=== PATIENT | male | born 1995 | race Two or more races ===

== ENCOUNTER 2021-10-15 18:44 | Inpatient (IN) | payer OTHER, MEDICAID, SELFPAY ==
[2021-10-15 18:30] VITALS: BP 121/76; PULSE 98; TEMP 36.7
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
[2021-10-15] MEDS: Divalproex Sodium 500 MG TABLET.DR PO (23:13)
[2021-10-15] MEDS: hydrOXYzine HCL 25 MG TABLET PO (23:13)
[2021-10-15] MEDS: Benztropine Mesylate 0.5 MG TABLET PO (23:13)
[2021-10-15] MEDS: Ziprasidone 20 MG CAPSULE PO (23:13)
[2021-10-16 06:00] VITALS: BP 124/68; PULSE 93; RESP 18; TEMP 36.5; O2SAT 98
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
[2021-10-16] MEDS: Ziprasidone 20 MG CAPSULE PO ×2 (09:38→21:02)
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
[2021-10-16 18:00] VITALS: BP 117/85; PULSE 87
[2021-10-16] MEDS: Benztropine Mesylate 0.5 MG TABLET PO (21:02)
[2021-10-16] MEDS: Divalproex Sodium 500 MG TABLET.DR PO (21:02)
[2021-10-16] MEDS: hydrOXYzine HCL 25 MG TABLET PO (23:06)
[2021-10-16] MEDS: traZODone HCL 50 MG TABLET PO (23:06)
[2021-10-17 09:24] LABS: Estimated Average Glucose 100 mg/dL; Hemoglobin A1c % 5.1 %
[2021-10-17 09:30] LABS: Cholesterol 111 mg/dL; HDL Cholesterol 25 mg/dL; LDL Cholesterol Calculated 75 mg/dl; Triglycerides 58 mg/dL
[2021-10-17 09:34] LABS: Valproate 44.1 mcg/mL (50.0-100.0)
[2021-10-17] MEDS: Ziprasidone 20 MG CAPSULE PO (09:45)
[2021-10-17] MEDS: Paliperidone ER 3 MG TAB.ER.24 PO (09:45)
--- NOTE | 2021-10-17 19:26 | P.PNPSI_ITS ---
Subjective Subjective Date of Service: 10/17/21 Reason For Visit: Bipolar Disorder Subjective Notes: Conditional Voluntary Healthcare Proxy: No Guardianship: No Medical Problems Affecting Mental Status: No Interim History: Reports SI, anxiety, feeling overwhelmed with thoughts of the devil, Holocaust. Reivew of his decision to remain in [place] when parents moved to [place]. States his brother gave him difficulty about needing to live on his own and manage this illness on his own. He is re-thinking this decision. Discussed titration of medications. Medication Compliance: Yes Side effects from medications: No Attending Groups: Intermittent Review of Systems Acute medical concerns: No Review of Systems Psychiatric: Reports anxiety, Reports depression, Reports difficulty concentrating, Reports auditory hallucinations, Reports mood swings, Reports paranoia and Reports suicidal ideation Mental Status Exam Mental Status Exam Patient Appearance: Appropriate Patient Orientation: Person, Place, Time and Situation Level of Consciousness: Alert Patient Behavior: Talkative and Good Eye Contact Mood Description: Depressed and Anxious Affect Description: Constricted Patient Cognition Impaired: No Ability to Follow Directions: Good Speech Pattern: Spontaneous Speech Memory Description: Intact Hallucinations: Auditory Delusions: Paranoid Ideation Perceptual Disturbances: Depersonalization and Derealization Thought Process: Distracted and Rumination Thought Content: positive for Obsessional Thoughts, positive for Perseveration and positive for Suicidal Ideation Depressive Symptoms: Increased Anxiety, Feelings of Guilt and Thoughts of /Suicide Judgement: Fair Diagnostics Labs Labs: Laboratory Results - last 48 hr 10/17/21 10/17/21 10/17/21 08:08 08:08 08:08 Estimat Average Glucose 100 Hemoglobin A1c % 5.1 Triglycerides 58 Cholesterol 111 LDL Cholesterol, Calc 75 HDL Cholesterol 25 Valproic Acid 44.1 L Medications Medications Current Medications Acetaminophen (Acetaminophen 325 Mg Tablet) 650 mg PO Q6H PRN PRN Reason: Headache/Pain Mild Scale (1-3) Al Hydroxide/Mg Hydroxide (Magnesium Hydrox/Alum Hydrox 30 Ml Oral.Susp) 30 ml PO Q6H PRN PRN Reason: Heartburn/Nausea Albuterol Sulfate (Albuterol Sulfate (0.042%) 1.25 Mg/3 Ml Vial.Neb) 0.63 mg INHALE Q4H PRN PRN Reason: sob Benztropine Mesylate (Benztropine Mesylate 0.5 Mg Tablet) 0.5 mg PO BEDTIME [facility] Last Admin: 10/16/21 21:02 Dose: 0.5 mg Diphenhydramine HCl (Diphenhydramine Hcl 25 Mg Tablet) 50 mg PO Q4H PRN PRN Reason: agitation Divalproex Sodium (Divalproex Sodium Er 500 Mg Tab.Er.24h) 1,000 mg PO BEDTIME [facility] Hydroxyzine HCl (Hydroxyzine Hcl 25 Mg Tablet) 25 mg PO Q6H PRN PRN Reason: Anxiety Last Admin: 10/16/21 23:06 Dose: 25 mg Lorazepam (Lorazepam 1 Mg Tablet) 1 mg PO Q4H PRN PRN Reason: Anxiety Magnesium Hydroxide (Milk Of Magnesia 30 Ml Oral.Susp) 30 ml PO DAILY PRN PRN Reason: Constipation Nicotine Polacrilex (Nicotine Polacrilex 2 Mg Gum) 4 mg BUCCAL Q2H PRN PRN Reason: Nicotine Cravings Olanzapine (Olanzapine 5 Mg Tablet) 5 mg PO Q4H PRN PRN Reason: shawnee, agitation, psychosis Olanzapine (Olanzapine 5 Mg Tablet) 5 mg PO BEDTIME [facility] Paliperidone (Paliperidone Er 3 Mg Tab.Er.24) 3 mg PO DAILY [facility] Last Admin: 10/17/21 09:45 Dose: 3 mg Trazodone HCl (Trazodone Hcl 50 Mg Tablet) 50 mg PO BEDTIME PRN PRN Reason: Insomnia Last Admin: 10/16/21 23:06 Dose: 50 mg Allergies Allergies Allergy/AdvReac Type Severity Reaction Status Date / Time No Known Allergies Allergy Verified 10/15/21 19:21 Assessment & Plan Assessment & Plan (1) Bipolar disorder: Status: Acute Code(s): F31.9 - Bipolar disorder, unspecified Plan 26 yo male, hx of bipolar disorder, presents in transfer from [facility]. He had been in intake with [facility] where he expressed SI. Reports medications do not work and he is looking to make changes. Asks about an SLATER and community Lynne guardianship. Reports intrusive thoughts of the devil and believes he may have caused the Holocaust. Hx of violent intrusive visual sx which are bothersome however pt reports no plan and worries how he will manage these when manic again. Discussed Invega trial with Olanzapine available during trial. Pt agrees. Plan: Invega 3 mg daily Discontinue Geodon Olanzapine prn Valproate Level, Lipids, A1c Titrate Valproate to therapeutic levels. 10/17/21: Increase Depakote to 1000 mg daily Lorazepam 1 mg 1 4 hours prn Olanzapine 5 mg HS Continue Invega I spent minutes with the patient and/or on the patient floor today, greater than?50% of which was spent counseling/coordinating care. Patient educated on: medication risk/benefits and therapeutic strategies Informed Consent: understands and further education needed Reason for contiued inpatient stay Substantial Risk for: harm to self, inability to function and rapid decompensation
[2021-10-17 20:50] VITALS: BP 126/72; PULSE 93; TEMP 36.3
[2021-10-17] MEDS: OLANZapine 5 MG TABLET PO (22:07)
[2021-10-17] MEDS: Divalproex Sodium ER 500 MG TAB.ER.24H 1000 MG PO (22:08)
[2021-10-17] MEDS: Benztropine Mesylate 0.5 MG TABLET PO (22:08)
[2021-10-18] MEDS: traZODone HCL 50 MG TABLET PO (00:08)
[2021-10-18] MEDS: Paliperidone ER 3 MG TAB.ER.24 PO (09:59)
[2021-10-18] MEDS: LORazepam 1 MG TABLET PO (12:12)
[2021-10-18 17:22] VITALS: BP 116/69; PULSE 106; RESP 16; TEMP 37.2; O2SAT 99
--- NOTE | 2021-10-18 18:05 | HO.PSYCHPN ---
Subjective Subjective Date of Service: 10/18/21 Reason For Visit: Bipolar Disorder Subjective Notes: Conditional Voluntary Healthcare Proxy: No Guardianship: No Medical Problems Affecting Mental Status: No Interim History: Team describes pt at reporting irritability, depression, numbness. Pt reports anxiety, ruminative about needing to live on his own and manage symptoms of illness alone. Presents with a significant amount of self-criticism. Agrees to increase Invega to 6 mg on 10/19. Medication Compliance: Yes Side effects from medications: Yes (some intermittent sedation reported) Attending Groups: Intermittent Review of Systems Acute medical concerns: No Medical Review of Systems: unchanged Review of Systems Reports behavioral changes Psychiatric: Reports anxiety, Reports behavioral changes, Reports depression, Reports difficulty concentrating, Reports hopelessness, Reports irritability, Reports anhedonia, Reports paranoia and Reports hallucinations Mental Status Exam Mental Status Exam Patient Appearance: Appropriate Patient Orientation: Person, Place, Time and Situation Level of Consciousness: Alert Patient Behavior: Talkative, Cooperative and Good Eye Contact Mood Description: Depressed Affect Description: Flat Patient Cognition Impaired: No Ability to Follow Directions: Good Speech Pattern: Spontaneous Speech Memory Description: Intact Hallucinations: None Delusions: Paranoid Ideation and Present (pt believes he caused Holocaust and believes he is affiliated with the devil.) Perceptual Disturbances: Derealization Thought Process: Distracted and Rumination Thought Content: positive for Perseveration, positive for Preoccupation and positive for Suicidal Ideation Depressive Symptoms: Diff. Making Decisions, Increased Irritability, Thoughts of /Suicide and Difficulty Concentrating Abnormal Motor Activity Signs and Symptoms: Restlessness Judgement: Fair Diagnostics Vital Signs (24Hr): Vital Signs - 24 hr 10/17/21 20:50 10/18/21 17:22 Temperature 97.3 F 99 F Pulse Rate 93 106 H Respiratory Rate 16 Blood Pressure 126/72 116/69 Pulse Oximetry 99 Oxygen Delivery Method Room Air Labs Labs: Laboratory Results - last 48 hr 10/17/21 10/17/21 10/17/21 08:08 08:08 08:08 Estimat Average Glucose 100 Hemoglobin A1c % 5.1 Triglycerides 58 Cholesterol 111 LDL Cholesterol, Calc 75 HDL Cholesterol 25 Valproic Acid 44.1 L Medications Medications Current Medications Acetaminophen (Acetaminophen 325 Mg Tablet) 650 mg PO Q6H PRN PRN Reason: Headache/Pain Mild Scale (1-3) Al Hydroxide/Mg Hydroxide (Magnesium Hydrox/Alum Hydrox 30 Ml Oral.Susp) 30 ml PO Q6H PRN PRN Reason: Heartburn/Nausea Albuterol Sulfate (Albuterol Sulfate (0.042%) 1.25 Mg/3 Ml Vial.Neb) 0.63 mg INHALE Q4H PRN PRN Reason: sob Benztropine Mesylate (Benztropine Mesylate 0.5 Mg Tablet) 0.5 mg PO BEDTIME [facility] Last Admin: 10/17/21 22:08 Dose: 0.5 mg Diphenhydramine HCl (Diphenhydramine Hcl 25 Mg Tablet) 50 mg PO Q4H PRN PRN Reason: agitation Divalproex Sodium (Divalproex Sodium Er 500 Mg Tab.Er.24h) 1,000 mg PO BEDTIME [facility] Last Admin: 10/17/21 22:08 Dose: 1,000 mg Hydroxyzine HCl (Hydroxyzine Hcl 25 Mg Tablet) 25 mg PO Q6H PRN PRN Reason: Anxiety Last Admin: 10/16/21 23:06 Dose: 25 mg Lorazepam (Lorazepam 1 Mg Tablet) 1 mg PO Q4H PRN PRN Reason: Anxiety Last Admin: 10/18/21 12:12 Dose: 1 mg Magnesium Hydroxide (Milk Of Magnesia 30 Ml Oral.Susp) 30 ml PO DAILY PRN PRN Reason: Constipation Nicotine Polacrilex (Nicotine Polacrilex 2 Mg Gum) 4 mg BUCCAL Q2H PRN PRN Reason: Nicotine Cravings Olanzapine (Olanzapine 5 Mg Tablet) 5 mg PO Q4H PRN PRN Reason: sh[place], agitation, psychosis Olanzapine (Olanzapine 5 Mg Tablet) 5 mg PO BEDTIME [facility] Last Admin: 10/17/21 22:07 Dose: 5 mg Paliperidone (Paliperidone Er 6 Mg Tab.Er.24) 6 mg PO DAILY KATHERINE Trazodone HCl (Trazodone Hcl 50 Mg Tablet) 50 mg PO BEDTIME PRN PRN Reason: Insomnia Last Admin: 10/18/21 00:08 Dose: 50 mg Allergies Allergies Allergy/AdvReac Type Severity Reaction Status Date / Time No Known Allergies Allergy Verified 10/15/21 19:21 Assessment & Plan Assessment & Plan (1) Bipolar disorder: Status: Acute Code(s): F31.9 - Bipolar disorder, unspecified Plan 26 yo male, hx of bipolar disorder, presents in transfer from [facility]. He had been in intake with [facility] where he expressed SI. Reports medications do not work and he is looking to make changes. Asks about an SLATER and community Lynne guardianship. Reports intrusive thoughts of the devil and believes he may have caused the Holocaust. Hx of violent intrusive visual sx which are bothersome however pt reports no plan and worries how he will manage these when manic again. Discussed Invega trial with Olanzapine available during trial. Pt agrees. Plan: Invega 3 mg daily Discontinue Geodon Olanzapine prn Valproate Level, Lipids, A1c Titrate Valproate to therapeutic levels. 10/17/21: Increase Depakote to 1000 mg daily Lorazepam 1 mg 1 4 hours prn Olanzapine 5 mg HS Continue Invega 10/18/21: Increase Invega to 6 mg daily. I spent minutes with the patient and/or on the patient floor today, greater than?50% of which was spent counseling/coordinating care. Patient educated on: medication risk/benefits and therapeutic strategies Informed Consent: understands and further education needed Reason for contiued inpatient stay Substantial Risk for: harm to self, inability to function and rapid decompensation
[2021-10-18] MEDS: Divalproex Sodium ER 500 MG TAB.ER.24H 1000 MG PO (19:46)
[2021-10-18] MEDS: Benztropine Mesylate 0.5 MG TABLET PO (19:46)
[2021-10-18] MEDS: OLANZapine 5 MG TABLET PO (19:46)
[2021-10-19 06:42] VITALS: BP 107/65; PULSE 76; RESP 18; TEMP 36.1; O2SAT 99
[2021-10-19] MEDS: Paliperidone ER 6 MG TAB.ER.24 PO (09:20)
--- NOTE | 2021-10-19 14:57 | HO.PSYCHPN ---
Subjective Subjective Date of Service: 10/19/21 Reason For Visit: Bipolar Disorder Subjective Notes: Conditional Voluntary Healthcare Proxy: No Guardianship: No Medical Problems Affecting Mental Status: No Interim History: Met with pt and Larry GREENE. Pt reports some sx relief with med changes, but with some sedation. At this time he does not want to decrease doses as sx are being managed. Will monitor. Discussed with pt possibly going to [place] to be with parents for extra support. Pt agrees to V[place]ICIO to discuss with parents. Pt called his dad this afternoon and tells tw that dad is concerned because I did not do anything when I was at home . Discussed with pt needing family, supports when illness presents. Encouraged him not to attempt to cope with this alone. Medication Compliance: Yes Side effects from medications: Yes (reports some sedation, however asks for no decrease at this time.) Attending Groups: Intermittent Review of Systems Acute medical concerns: No Medical Review of Systems: unchanged Review of Systems Psychiatric: Reports anxiety, Reports depression, Reports hopelessness, Reports paranoia, Reports hallucinations and Reports suicidal ideation Mental Status Exam Mental Status Exam Patient Appearance: Appropriate Patient Orientation: Person, Place, Time and Situation Level of Consciousness: Alert Patient Behavior: Appropriate, Talkative, Good Eye Contact and Crying Mood Description: Sad Affect Description: Flat Patient Cognition Impaired: No Ability to Follow Directions: Good Speech Pattern: Spontaneous Speech Memory Description: Intact Hallucinations: None Delusions: Present Perceptual Disturbances: Depersonalization and Derealization Thought Process: Distracted and Rumination Thought Content: positive for Perseveration Depressive Symptoms: Diff. Making Decisions, Crying Spells and Low Self Esteem Judgement: Fair Diagnostics Vital Signs (24Hr): Vital Signs - 24 hr 10/18/21 17:22 10/19/21 06:42 Temperature 99 F 97.0 F Pulse Rate 106 H 76 Respiratory Rate 16 18 Blood Pressure 116/69 107/65 Pulse Oximetry 99 99 Oxygen Delivery Method Room Air Room Air Medications Medications Current Medications Acetaminophen (Acetaminophen 325 Mg Tablet) 650 mg PO Q6H PRN PRN Reason: Headache/Pain Mild Scale (1-3) Al Hydroxide/Mg Hydroxide (Magnesium Hydrox/Alum Hydrox 30 Ml Oral.Susp) 30 ml PO Q6H PRN PRN Reason: Heartburn/Nausea Albuterol Sulfate (Albuterol Sulfate (0.042%) 1.25 Mg/3 Ml Vial.Neb) 0.63 mg INHALE Q4H PRN PRN Reason: sob Benztropine Mesylate (Benztropine Mesylate 0.5 Mg Tablet) 0.5 mg PO BEDTIME [facility] Last Admin: 10/18/21 19:46 Dose: 0.5 mg Diphenhydramine HCl (Diphenhydramine Hcl 25 Mg Tablet) 50 mg PO Q4H PRN PRN Reason: agitation Divalproex Sodium (Divalproex Sodium Er 500 Mg Tab.Er.24h) 1,000 mg PO BEDTIME [facility] Last Admin: 10/18/21 19:46 Dose: 1,000 mg Hydroxyzine HCl (Hydroxyzine Hcl 25 Mg Tablet) 25 mg PO Q6H PRN PRN Reason: Anxiety Last Admin: 10/16/21 23:06 Dose: 25 mg Lorazepam (Lorazepam 1 Mg Tablet) 1 mg PO Q4H PRN PRN Reason: Anxiety Last Admin: 10/18/21 12:12 Dose: 1 mg Magnesium Hydroxide (Milk Of Magnesia 30 Ml Oral.Susp) 30 ml PO DAILY PRN PRN Reason: Constipation Nicotine Polacrilex (Nicotine Polacrilex 2 Mg Gum) 4 mg BUCCAL Q2H PRN PRN Reason: Nicotine Cravings Olanzapine (Olanzapine 5 Mg Tablet) 5 mg PO Q4H PRN PRN Reason: [place], agitation, psychosis Olanzapine (Olanzapine 5 Mg Tablet) 5 mg PO BEDTIME [facility] Last Admin: 10/18/21 19:46 Dose: 5 mg Paliperidone (Paliperidone Er 6 Mg Tab.Er.24) 6 mg PO DAILY [facility] Last Admin: 10/19/21 09:20 Dose: 6 mg Trazodone HCl (Trazodone Hcl 50 Mg Tablet) 50 mg PO BEDTIME PRN PRN Reason: Insomnia Last Admin: 10/18/21 00:08 Dose: 50 mg Allergies Allergies Allergy/AdvReac Type Severity Reaction Status Date / Time No Known Allergies Allergy Verified 10/15/21 19:21 Assessment & Plan Assessment & Plan (1) Bipolar disorder: Status: Acute Code(s): F31.9 - Bipolar disorder, unspecified Plan 26 yo male, hx of bipolar disorder, presents in transfer from [facility]. He had been in intake with [facility] where he expressed SI. Reports medications do not work and he is looking to make changes. Asks about an SLATER and community [place] guardianship. Reports intrusive thoughts of the devil and believes he may have caused the Holocaust. Hx of violent intrusive visual sx which are bothersome however pt reports no plan and worries how he will manage these when manic again. Discussed Invega trial with Olanzapine available during trial. Pt agrees. Plan: Invega 3 mg daily Discontinue Geodon Olanzapine prn Valproate Level, Lipids, A1c Titrate Valproate to therapeutic levels. 10/17/21: Increase Depakote to 1000 mg daily Lorazepam 1 mg 1 4 hours prn Olanzapine 5 mg HS Continue Invega 10/18/21: Increase Invega to 6 mg daily. 10/19/21: Continue current plan. I spent minutes with the patient and/or on the patient floor today, greater than?50% of which was spent counseling/coordinating care. Patient educated on: medication risk/benefits and therapeutic strategies Informed Consent: understands and further education needed Reason for contiued inpatient stay Substantial Risk for: harm to self, inability to function and rapid decompensation
[2021-10-19] MEDS: LORazepam 1 MG TABLET PO (16:26)
[2021-10-19] MEDS: OLANZapine 5 MG TABLET PO (21:36)
[2021-10-19] MEDS: Divalproex Sodium ER 500 MG TAB.ER.24H 1000 MG PO (21:37)
[2021-10-19] MEDS: Benztropine Mesylate 0.5 MG TABLET PO (21:37)
[2021-10-19 21:40] VITALS: BP 122/66; PULSE 110; RESP 16; TEMP 36.1; O2SAT 100
[2021-10-20] MEDS: Paliperidone ER 6 MG TAB.ER.24 PO (10:25)
[2021-10-20 10:27] VITALS: BP 113/74; PULSE 88; RESP 16; TEMP 36.7; O2SAT 98
[2021-10-20] MEDS: Benztropine Mesylate 1 MG TABLET PO ×2 (14:54→20:51)
--- NOTE | 2021-10-20 15:04 | HO.PSYCHPN ---
Subjective Subjective Date of Service: 10/20/21 Reason For Visit: Bipolar Disorder Subjective Notes: Conditional Voluntary Healthcare Proxy: No Guardianship: No Medical Problems Affecting Mental Status: No Interim History: I spent one year with shawnee, my father has issues with anger, it intertwined with my issues and my anger. I have anxiety about going back into the world. Depakote increased to 1000 mg this week-level 44.1 10/17. Tolerating po Invega 6 mg in preparation for [facility] IM, Benztropine increased to 1 mg bid today, using prn Ativan for anxiety. Discussed possible antidepressant trial. Sandra discussed today his parents wanting him to manage his illness independently. Pt has made contact with parents to talk about going to [place] to stay with them. He reports mother supports this but father has been controntational-telling pt that he does not do enough when living with parents and he needs to learn to manage himself independently. Discussed possible [facility] application for extra supports. Medication Compliance: Yes Side effects from medications: Yes (reports some stiffness in his legs-benztropine increased to 1 mg bid) Attending Groups: Yes Review of Systems Acute medical concerns: No Medical Review of Systems: unchanged Review of Systems Reports behavioral changes Psychiatric: Reports anxiety, Reports behavioral changes, Reports depression, Reports difficulty concentrating, Reports hopelessness, Reports irritability, Reports anhedonia, Reports paranoia and Reports suicidal ideation Comments: Pt states today that he does not feel that he is worth making an effort for. Denies voices, but feels negative messages from illness. Discussed these as sx. Mental Status Exam Mental Status Exam Patient Appearance: Appropriate Patient Orientation: Person, Place, Time and Situation Level of Consciousness: Alert Patient Behavior: Appropriate, Talkative, Cooperative, Anxious, Fearful, Distractible and Good Eye Contact Mood Description: Depressed Affect Description: Flat Patient Cognition Impaired: No Ability to Follow Directions: Good Speech Pattern: Spontaneous Speech Memory Description: Intact Hallucinations: None Delusions: Paranoid Ideation and Present Perceptual Disturbances: Depersonalization Thought Process: Rumination Thought Content: positive for [place], positive for Circumstantial, positive for Perseveration and positive for Suicidal Ideation (denies SI plan or intent) Depressive Symptoms: Increased Anxiety, Loss of Int. in Activity, Hopelessness, Thoughts of /Suicide (denies) and Low Self Esteem Judgement: Fair Diagnostics Vital Signs (24Hr): Vital Signs - 24 hr 10/19/21 21:40 10/20/21 10:27 Temperature 97 F 98.0 F Pulse Rate 110 H 88 Respiratory Rate 16 16 Blood Pressure 122/66 113/74 Pulse Oximetry 100 98 Oxygen Delivery Method Room Air Room Air Medications Medications Current Medications Acetaminophen (Acetaminophen 325 Mg Tablet) 650 mg PO Q6H PRN PRN Reason: Headache/Pain Mild Scale (1-3) Al Hydroxide/Mg Hydroxide (Magnesium Hydrox/Alum Hydrox 30 Ml Oral.Susp) 30 ml PO Q6H PRN PRN Reason: Heartburn/Nausea Albuterol Sulfate (Albuterol Sulfate (0.042%) 1.25 Mg/3 Ml Vial.Neb) 0.63 mg INHALE Q4H PRN PRN Reason: sob Benztropine Mesylate (Benztropine Mesylate 1 Mg Tablet) 1 mg PO BID [facility] Last Admin: 10/20/21 14:54 Dose: 1 mg Diphenhydramine HCl (Diphenhydramine Hcl 25 Mg Tablet) 50 mg PO Q4H PRN PRN Reason: agitation Divalproex Sodium (Divalproex Sodium Er 500 Mg Tab.Er.24h) 1,000 mg PO BEDTIME [facility] Last Admin: 10/19/21 21:37 Dose: 1,000 mg Hydroxyzine HCl (Hydroxyzine Hcl 25 Mg Tablet) 25 mg PO Q6H PRN PRN Reason: Anxiety Last Admin: 10/16/21 23:06 Dose: 25 mg Lorazepam (Lorazepam 1 Mg Tablet) 1 mg PO Q4H PRN PRN Reason: Anxiety Last Admin: 10/19/21 16:26 Dose: 1 mg Magnesium Hydroxide (Milk Of Magnesia 30 Ml Oral.Susp) 30 ml PO DAILY PRN PRN Reason: Constipation Nicotine Polacrilex (Nicotine Polacrilex 2 Mg Gum) 4 mg BUCCAL Q2H PRN PRN Reason: Nicotine Cravings Olanzapine (Olanzapine 5 Mg Tablet) 5 mg PO Q4H PRN PRN Reason: [place], agitation, psychosis Olanzapine (Olanzapine 5 Mg Tablet) 5 mg PO BEDTIME [facility] Last Admin: 10/19/21 21:36 Dose: 5 mg Paliperidone (Paliperidone Er 6 Mg Tab.Er.24) 6 mg PO DAILY [facility] Last Admin: 10/20/21 10:25 Dose: 6 mg Trazodone HCl (Trazodone Hcl 50 Mg Tablet) 50 mg PO BEDTIME PRN PRN Reason: Insomnia Last Admin: 10/18/21 00:08 Dose: 50 mg Allergies Allergies Allergy/AdvReac Type Severity Reaction Status Date / Time No Known Allergies Allergy Verified 10/15/21 19:21 Assessment & Plan Assessment & Plan (1) Bipolar disorder: Status: Acute Code(s): F31.9 - Bipolar disorder, unspecified Plan 26 yo male, hx of bipolar disorder, presents in transfer from [facility]. He had been in intake with [facility] where he expressed SI. Reports medications do not work and he is looking to make changes. Asks about an SLATER and community [place] guardianship. Reports intrusive thoughts of the devil and believes he may have caused the Holocaust. Hx of violent intrusive visual sx which are bothersome however pt reports no plan and worries how he will manage these when manic again. Discussed Invega trial with Olanzapine available during trial. Pt agrees. Plan: Invega 3 mg daily Discontinue Geodon Olanzapine prn Valproate Level, Lipids, A1c Titrate Valproate to therapeutic levels. 10/17/21: Increase Depakote to 1000 mg daily Lorazepam 1 mg 1 4 hours prn Olanzapine 5 mg HS Continue Invega 10/18/21: Increase Invega to 6 mg daily. 10/19/21: Continue current plan. 10/20/21: Increase benztropine to 1 mg bid Clonidine 0.1 mg bid Apply for [facility] services I spent minutes with the patient and/or on the patient floor today, greater than?50% of which was spent counseling/coordinating care. Patient educated on: medication risk/benefits and therapeutic strategies Informed Consent: understands and further education needed Reason for contiued inpatient stay Substantial Risk for: harm to self, inability to function and rapid decompensation
[2021-10-20 18:00] VITALS: BP 112/78; PULSE 78; RESP 16; TEMP 37; O2SAT 99
[2021-10-20] MEDS: cloNIDine HCL 0.1 MG TABLET PO (20:51)
[2021-10-20] MEDS: Divalproex Sodium ER 500 MG TAB.ER.24H 1000 MG PO (20:51)
[2021-10-20] MEDS: OLANZapine 5 MG TABLET PO (20:52)
[2021-10-21] MEDS: Paliperidone ER 6 MG TAB.ER.24 PO (08:34)
[2021-10-21] MEDS: cloNIDine HCL 0.1 MG TABLET PO ×2 (08:34→20:34)
[2021-10-21] MEDS: Benztropine Mesylate 1 MG TABLET PO ×2 (08:35→20:35)
[2021-10-21 08:37] VITALS: BP 101/64; PULSE 71; RESP 18; TEMP 36.6; O2SAT 97
--- NOTE | 2021-10-21 13:33 | P.PNPSI_ITS ---
Subjective Subjective Date of Service: 10/21/21 Reason For Visit: Bipolar Disorder Subjective Notes: Conditional Voluntary Healthcare Proxy: No Guardianship: No Interim History: Pt seen in f/u mood depressed feels evil like dont deserve to live denies active si coop with Invega olanzapine and Depakote case reviewed with treatment team Medication Compliance: Yes Mental Status Exam Mental Status Exam Patient Appearance: Appropriate Patient Orientation: Person, Place, Time and Situation Level of Consciousness: Alert Patient Behavior: Appropriate, Cooperative, Anxious and Good Eye Contact Behavior Comments: Sad looking Mood Description: Withdrawn, Constricted and Depressed Affect Description: Flat Patient Cognition Impaired: No Ability to Follow Directions: Good Speech Pattern: Spontaneous Speech Memory Description: Intact Hallucinations: None Delusions: Paranoid Ideation and Bizarre (He is hitler) Perceptual Disturbances: Depersonalization Thought Process: Rumination Thought Content: positive for [place], positive for Circumstantial, positive for Perseveration and positive for Suicidal Ideation (denies SI plan or intent) Depressive Symptoms: Increased Anxiety, Loss of Int. in Activity, Hopelessness, Thoughts of /Suicide (denies) and Low Self Esteem Judgement: Fair Judgement and Insight: Denies active SI in this setting Diagnostics Vital Signs (24Hr): Vital Signs - 24 hr 10/20/21 18:00 10/21/21 08:37 Temperature 98.6 F 97.9 F Pulse Rate 78 71 Respiratory Rate 16 18 Blood Pressure 112/78 101/64 Pulse Oximetry 99 97 Oxygen Delivery Method Room Air Room Air Medications Medications Current Medications Acetaminophen (Acetaminophen 325 Mg Tablet) 650 mg PO Q6H PRN PRN Reason: Headache/Pain Mild Scale (1-3) Al Hydroxide/Mg Hydroxide (Magnesium Hydrox/Alum Hydrox 30 Ml Oral.Susp) 30 ml PO Q6H PRN PRN Reason: Heartburn/Nausea Albuterol Sulfate (Albuterol Sulfate (0.042%) 1.25 Mg/3 Ml Vial.Neb) 0.63 mg INHALE Q4H PRN PRN Reason: sob Benztropine Mesylate (Benztropine Mesylate 1 Mg Tablet) 1 mg PO BID [facility] Last Admin: 10/21/21 08:35 Dose: 1 mg Clonidine HCl (Clonidine Hcl 0.1 Mg Tablet) 0.1 mg PO BID [facility]ATHERINE; Protocol Last Admin: 10/21/21 08:34 Dose: 0.1 mg Diphenhydramine HCl (Diphenhydramine Hcl 25 Mg Tablet) 50 mg PO Q4H PRN PRN Reason: agitation Divalproex Sodium (Divalproex Sodium Er 500 Mg Tab.Er.24h) 1,000 mg PO BEDTIME [facility] Last Admin: 10/20/21 20:51 Dose: 1,000 mg Hydroxyzine HCl (Hydroxyzine Hcl 25 Mg Tablet) 25 mg PO Q6H PRN PRN Reason: Anxiety Last Admin: 10/16/21 23:06 Dose: 25 mg Lorazepam (Lorazepam 1 Mg Tablet) 1 mg PO Q4H PRN PRN Reason: Anxiety Last Admin: 10/19/21 16:26 Dose: 1 mg Magnesium Hydroxide (Milk Of Magnesia 30 Ml Oral.Susp) 30 ml PO DAILY PRN PRN Reason: Constipation Nicotine Polacrilex (Nicotine Polacrilex 2 Mg Gum) 4 mg BUCCAL Q2H PRN PRN Reason: Nicotine Cravings Olanzapine (Olanzapine 5 Mg Tablet) 5 mg PO Q4H PRN PRN Reason: [place], agitation, psychosis Olanzapine (Olanzapine 5 Mg Tablet) 5 mg PO BEDTIME [facility] Last Admin: 10/20/21 20:52 Dose: 5 mg Paliperidone (Paliperidone Er 6 Mg Tab.Er.24) 6 mg PO DAILY [facility] Last Admin: 10/21/21 08:34 Dose: 6 mg Trazodone HCl (Trazodone Hcl 50 Mg Tablet) 50 mg PO BEDTIME PRN PRN Reason: Insomnia Last Admin: 10/18/21 00:08 Dose: 50 mg Allergies Allergies Allergy/AdvReac Type Severity Reaction Status Date / Time No Known Allergies Allergy Verified 10/15/21 19:21 Assessment & Plan Assessment & Plan (1) Bipolar disorder: Status: Acute Code(s): F31.9 - Bipolar disorder, unspecified Plan 26 yo male, hx of bipolar disorder, presents in transfer from [facility]. He had been in intake with [facility] where he expressed SI. Reports medications do not work and he is looking to make changes. Asks about an SLATER and community [place] guardianship. Reports intrusive thoughts of the devil and believes he may have caused the Holocaust. Hx of violent intrusive visual sx which are bothersome however pt reports no plan and worries how he will manage these when manic again. Discussed Invega trial with Olanzapine available during trial. Pt agrees. Plan: Invega 3 mg daily Discontinue Geodon Olanzapine prn Valproate Level, Lipids, A1c Titrate Valproate to therapeutic levels. Assessment and plan for 10/21/2021 Patient is case reviewed with treatment team patient with delusional thinking that he is evil somehow deserves to be punished. He denies active self-harm in this setting. He is agreeable to long-acting injectable. History of depression has been treated with antidepressants previously history of manic episodes. Continue Invega trial consider antidepressant augmentation I spent minutes with the patient and/or on the patient floor today, greater than?50% of which was spent counseling/coordinating care. Reason for contiued inpatient stay Substantial Risk for: harm to self and inability to function
[2021-10-21] MEDS: LORazepam 1 MG TABLET PO (18:05)
[2021-10-21 20:35] VITALS: BP 120/66; PULSE 118; TEMP 36.3
[2021-10-21] MEDS: OLANZapine 5 MG TABLET PO (20:35)
[2021-10-21] MEDS: Divalproex Sodium ER 500 MG TAB.ER.24H 1000 MG PO (20:35)
[2021-10-22] MEDS: cloNIDine HCL 0.1 MG TABLET PO ×2 (08:47→20:27)
[2021-10-22] MEDS: Benztropine Mesylate 1 MG TABLET PO ×2 (08:47→20:27)
[2021-10-22] MEDS: Paliperidone ER 6 MG TAB.ER.24 PO (08:47)
[2021-10-22 08:48] VITALS: BP 111/60; PULSE 69; RESP 18; TEMP 37.2; O2SAT 98
[2021-10-22 18:00] VITALS: BP 115/65; PULSE 105; TEMP 36.6
[2021-10-22] MEDS: hydrOXYzine HCL 25 MG TABLET PO (20:27)
[2021-10-22] MEDS: Divalproex Sodium ER 500 MG TAB.ER.24H 1000 MG PO (20:28)
[2021-10-22] MEDS: OLANZapine 5 MG TABLET PO (20:28)
--- NOTE | 2021-10-22 22:55 | P.PNPSI_ITS ---
Subjective Subjective Date of Service: 10/22/21 Reason For Visit: Bipolar Disorder Subjective Notes: Conditional Voluntary Healthcare Proxy: No Guardianship: No Interim History: Patient states he feels a little better more verbal regarding concerns that he has that his parents feel he needs to be on his own more but in despair that he has not been able to. Has insight that his psychiatric illness has impaired his ability to function has been on antidepressants in the past He is agreeable to long-acting injectable. Remains delusional with delusional guilt Medication Compliance: Yes Attending Groups: Yes Mental Status Exam Mental Status Exam Patient Appearance: Appropriate Patient Orientation: Person, Place, Time and Situation Level of Consciousness: Alert Patient Behavior: Appropriate, Cooperative, Anxious and Good Eye Contact Behavior Comments: Sad looking Mood Description: Withdrawn, Constricted and Depressed Affect Description: Flat Patient Cognition Impaired: No Ability to Follow Directions: Good Speech Pattern: Spontaneous Speech Memory Description: Intact Hallucinations: None Delusions: Paranoid Ideation and Bizarre (He is hitler) Thought Process: Rumination Thought Content: positive for [place], positive for Circumstantial, positive for Perseveration and positive for Suicidal Ideation (denies SI plan or intent inb this setting ) Depressive Symptoms: Increased Anxiety, Loss of Int. in Activity, Hopelessness, Thoughts of /Suicide (denies) and Low Self Esteem Judgement: Fair Judgement and Insight: Denies active SI in this setting Diagnostics Vital Signs (24Hr): Vital Signs - 24 hr 10/22/21 08:48 Temperature 98.9 F Pulse Rate 69 Respiratory Rate 18 Blood Pressure 111/60 Pulse Oximetry 98 Oxygen Delivery Method Room Air Medications Medications Current Medications Acetaminophen (Acetaminophen 325 Mg Tablet) 650 mg PO Q6H PRN PRN Reason: Headache/Pain Mild Scale (1-3) Al Hydroxide/Mg Hydroxide (Magnesium Hydrox/Alum Hydrox 30 Ml Oral.Susp) 30 ml PO Q6H PRN PRN Reason: Heartburn/Nausea Benztropine Mesylate (Benztropine Mesylate 1 Mg Tablet) 1 mg PO BID [facility] Last Admin: 10/22/21 20:27 Dose: 1 mg Clonidine HCl (Clonidine Hcl 0.1 Mg Tablet) 0.1 mg PO BID [facility]; Protocol Last Admin: 10/22/21 20:27 Dose: 0.1 mg Diphenhydramine HCl (Diphenhydramine Hcl 25 Mg Tablet) 50 mg PO Q4H PRN PRN Reason: agitation Divalproex Sodium (Divalproex Sodium Er 500 Mg Tab.Er.24h) 1,000 mg PO BEDTIME [facility] Last Admin: 10/22/21 20:28 Dose: 1,000 mg Hydroxyzine HCl (Hydroxyzine Hcl 25 Mg Tablet) 25 mg PO Q6H PRN PRN Reason: Anxiety Last Admin: 10/22/21 20:27 Dose: 25 mg Lorazepam (Lorazepam 1 Mg Tablet) 1 mg PO Q4H PRN PRN Reason: Anxiety Magnesium Hydroxide (Milk Of Magnesia 30 Ml Oral.Susp) 30 ml PO DAILY PRN PRN Reason: Constipation Nicotine Polacrilex (Nicotine Polacrilex 2 Mg Gum) 4 mg BUCCAL Q2H PRN PRN Reason: Nicotine Cravings Olanzapine (Olanzapine 5 Mg Tablet) 5 mg PO Q4H PRN PRN Reason: [place], agitation, psychosis Olanzapine (Olanzapine 5 Mg Tablet) 5 mg PO BEDTIME [facility] Last Admin: 10/22/21 20:28 Dose: 5 mg Paliperidone (Paliperidone Er 6 Mg Tab.Er.24) 6 mg PO DAILY [facility] Last Admin: 10/22/21 08:47 Dose: 6 mg Trazodone HCl (Trazodone Hcl 50 Mg Tablet) 50 mg PO BEDTIME PRN PRN Reason: Insomnia Last Admin: 10/18/21 00:08 Dose: 50 mg Allergies Allergies Allergy/AdvReac Type Severity Reaction Status Date / Time No Known Allergies Allergy Verified 10/15/21 19:21 Assessment & Plan Assessment & Plan (1) Bipolar disorder: Status: Acute Code(s): F31.9 - Bipolar disorder, unspecified Plan 26 yo male, hx of bipolar disorder, presents in transfer from [facility]. He had been in intake with [facility] where he expressed SI. Reports medications do not work and he is looking to make changes. Asks about an SLATER and community Lyn[place] guardianship. Reports intrusive thoughts of the devil and believes he may have caused the Holocaust. Hx of violent intrusive visual sx which are bothersome however pt reports no plan and worries how he will manage these when manic again. Discussed Invega trial with Olanzapine available during trial. Pt agrees. Plan: Invega 3 mg daily Discontinue Geodon Olanzapine prn Valproate Level, Lipids, A1c Titrate Valproate to therapeutic levels. Assessment and plan for 10/21/2021 Patient is case reviewed with treatment team patient with delusional thinking that he is evil somehow deserves to be punished. He denies active self-harm in this setting. He is agreeable to long-acting injectable. History of depression has been treated with antidepressants previously history of manic episodes. Continue Invega trial consider antidepressant augmentation assmt and plan for 10/22/21 Patient depressed flat somewhat psychomotor retarded. States he is feeling a little bit better seems less floridly preoccupied with psychotic delusions that he has a mass killer has been on antidepressants in the past if he broke through Depakote would consider lithium if he has never had a lithium trial could start Invega sustena Shortly I spent minutes with the patient and/or on the patient floor today, greater than?50% of which was spent counseling/coordinating care. Reason for contiued inpatient stay Substantial Risk for: harm to self and rapid decompensation
[2021-10-23] MEDS: cloNIDine HCL 0.1 MG TABLET PO ×2 (09:13→20:37)
[2021-10-23] MEDS: Paliperidone ER 6 MG TAB.ER.24 PO (09:13)
[2021-10-23] MEDS: Benztropine Mesylate 1 MG TABLET PO ×2 (09:13→20:36)
[2021-10-23 09:14] VITALS: BP 117/56; PULSE 76; TEMP 36.6; O2SAT 99
--- NOTE | 2021-10-23 16:27 | HO.PSYCHPN ---
Subjective Subjective Date of Service: 10/23/21 Reason For Visit: Bipolar Disorder Subjective Notes: Conditional Voluntary Healthcare Proxy: No Guardianship: No Medical Problems Affecting Mental Status: No Interim History: Met with pt and Larry GREENE. Pt reports some sedation, some akathesia sx, denies perceptual alterations, however, fears of the devil and intrusive thoughts of harming others are still present. Pt also presents with a tic-laughter- that he reports has been present for several years. Reports some depressive sx-by history, has used Prozac, Wellbutrin in the past with results. Discussed medication interventions/changes and implemented. Pt reviewed concerns about meds in general-weight gain-discussed Metformin/Topiramate trials, stopping medications when manic-agreeable to VNA trial, lock box trial; stress of father discussing accountability with him-pt wanting responsibility/accountability however he feels great pressure when father is talking with him about this. States he has had 6 admits in 10 years and does not believe he has a proper handle on mgt of this illness. Care discussed with pt's parents, by phone. Parents report they have encouraged pt to live independently to increase his coping skills. Parents state that they are aging and need pt to begin to develop some independence in life skills. Current sx present for the past 10 years and pt has had little structure in his life. They can assist financially however, they have observed pt in their home sleeping until 3pm daily, not participating, stopping medication, not adhereing to rules at home. Parents believe these are skills pt needs to learn. They suggest life coaching. Review of medication changes, [facility]-mother is a pharmacist and discussed her observations of pt's responses to medications. Discussed [facility] application and possible services that can be assessed for Sandra to utilize. Medication Compliance: Yes Side effects from medications: Yes (sedation, mild akathesia per pt report) Attending Groups: Yes Review of Systems Acute medical concerns: No Medical Review of Systems: unchanged Review of Systems Psychiatric: Reports anxiety and Reports depression Mental Status Exam Mental Status Exam Patient Appearance: Appropriate Patient Orientation: Person, Place, Time and Situation Level of Consciousness: Alert Patient Behavior: Talkative, Cooperative, Distractible and Good Eye Contact Mood Description: Constricted Affect Description: Constricted Patient Cognition Impaired: No Ability to Follow Directions: Good Speech Pattern: Spontaneous Speech Memory Description: Episodic Impaired Delusions: Paranoid Ideation, Present and Thought Insert/Delete Perceptual Disturbances: Depersonalization and Derealization Thought Process: Rumination Thought Content: positive for [place], positive for Circumstantial, positive for Persever[place] and positive for Suicidal Ideation Depressive Symptoms: Increased Anxiety, Diff. Making Decisions, Hopelessness, Unhappiness and Low Self Esteem Abnormal Motor Activity Signs and Symptoms: Restlessness Judgement: Fair Diagnostics Vital Signs (24Hr): Vital Signs - 24 hr 10/22/21 18:00 10/23/21 09:14 Temperature 97.9 F 97.8 F Pulse Rate 105 H 76 Blood Pressure 115/65 117/56 L Pulse Oximetry 99 Oxygen Delivery Method Room Air Medications Medications Current Medications Acetaminophen (Acetaminophen 325 Mg Tablet) 650 mg PO Q6H PRN PRN Reason: Headache/Pain Mild Scale (1-3) Al Hydroxide/Mg Hydroxide (Magnesium Hydrox/Alum Hydrox 30 Ml Oral.Susp) 30 ml PO Q6H PRN PRN Reason: Heartburn/Nausea Benztropine Mesylate (Benztropine Mesylate 1 Mg Tablet) 1 mg PO BID [facility] Last Admin: 10/23/21 09:13 Dose: 1 mg Benztropine Mesylate (Benztropine Mesylate 1 Mg Tablet) 1 mg PO BID PRN PRN Reason: Extrapyramidal Effects Clonidine HCl (Clonidine Hcl 0.1 Mg Tablet) 0.1 mg PO BID [facility]; Protocol Last Admin: 10/23/21 09:13 Dose: 0.1 mg Diphenhydramine HCl (Diphenhydramine Hcl 25 Mg Tablet) 50 mg PO Q4H PRN PRN Reason: agitation Divalproex Sodium (Divalproex Sodium Er 500 Mg Tab.Er.24h) 1,500 mg PO BEDTIME [facility]INE Haloperidol (Haloperidol 5 Mg Tablet) 5 mg PO BEDTIME [facility] Haloperidol (Haloperidol 5 Mg Tablet) 5 mg PO Q4H PRN PRN Reason: psychosis Hydroxyzine HCl (Hydroxyzine Hcl 25 Mg Tablet) 25 mg PO Q6H PRN PRN Reason: Anxiety Last Admin: 10/22/21 20:27 Dose: 25 mg Lorazepam (Lorazepam 1 Mg Tablet) 1 mg PO Q4H PRN PRN Reason: Anxiety Lorazepam (Lorazepam 1 Mg Tablet) 1 mg PO BID K[facility]INE Magnesium Hydroxide (Milk Of Magnesia 30 Ml Oral.Susp) 30 ml PO DAILY PRN PRN Reason: Constipation Nicotine Polacrilex (Nicotine Polacrilex 2 Mg Gum) 4 mg BUCCAL Q2H PRN PRN Reason: Nicotine Cravings Paliperidone (Paliperidone Er 9 Mg Tab.Er.24) 9 mg PO DAILY K[facility]INE Trazodone HCl (Trazodone Hcl 50 Mg Tablet) 50 mg PO BEDTIME PRN PRN Reason: Insomnia Last Admin: 10/18/21 00:08 Dose: 50 mg Allergies Allergies Allergy/AdvReac Type Severity Reaction Status Date / Time No Known Allergies Allergy Verified 10/15/21 19:21 Assessment & Plan Assessment & Plan (1) Bipolar disorder: Status: Acute Code(s): F31.9 - Bipolar disorder, unspecified Plan 26 yo male, hx of bipolar disorder, presents in transfer from [facility]. He had been in intake with [facility] where he expressed SI. Reports medications do not work and he is looking to make changes. Asks about an SLATER and community Lyn[place] guardianship. Reports intrusive thoughts of the devil and believes he may have caused the Holocaust. Hx of violent intrusive visual sx which are bothersome however pt reports no plan and worries how he will manage these when manic again. Discussed Invega trial with Olanzapine available during trial. Pt agrees. Plan: Invega 3 mg daily Discontinue Geodon Olanzapine prn Valproate Level, Lipids, A1c Titrate Valproate to therapeutic levels. Assessment and plan for 10/21/2021 Patient is case reviewed with treatment team patient with delusional thinking that he is evil somehow deserves to be punished. He denies active self-harm in this setting. He is agreeable to long-acting injectable. History of depression has been treated with antidepressants previously history of manic episodes. Continue Invega trial consider antidepressant augmentation assmt and plan for 10/22/21 Patient depressed flat somewhat psychomotor retarded. States he is feeling a little bit better seems less floridly preoccupied with psychotic delusions that he has a mass killer has been on antidepressants in the past if he broke through Depakote would consider lithium if he has never had a lithium trial could start Invega sustena Shortly 10/23/21 Family meeting by phone and discussion with pt re meds. Father may be reached at [phone]. -Increase Invega to 9 mg daily. If tolerated, will plan Sustenna on 10/27 -Discontinue Olanzapine -Increase Valproate to 1500 mg daily -Haldol 5 mg HS and 5 mg prn psychotic agitation Benztropine 1 mg bid prn in addition to scheduled dosing. I spent minutes with the patient and/or on the patient floor today, greater than?50% of which was spent counseling/coordinating care. Patient educated on: medication risk/benefits and therapeutic strategies Informed Consent: further education needed Reason for contiued inpatient stay Substantial Risk for: harm to self, inability to function and rapid decompensation
[2021-10-23] MEDS: HaloperidoL 5 MG TABLET PO (20:38)
[2021-10-23] MEDS: LORazepam 1 MG TABLET PO (20:38)
[2021-10-23] MEDS: Divalproex Sodium ER 500 MG TAB.ER.24H 1500 MG PO (20:38)
[2021-10-23 23:30] VITALS: BP 128/60; PULSE 88; TEMP 36.7
[2021-10-24 08:18] VITALS: BP 107/57; PULSE 61; TEMP 36.5; O2SAT 99
[2021-10-24] MEDS: Benztropine Mesylate 1 MG TABLET PO ×2 (08:43→19:36)
[2021-10-24] MEDS: Paliperidone ER 9 MG TAB.ER.24 PO (08:43)
[2021-10-24] MEDS: cloNIDine HCL 0.1 MG TABLET PO ×2 (08:43→19:34)
[2021-10-24] MEDS: LORazepam 1 MG TABLET PO ×2 (08:43→19:49)
--- NOTE | 2021-10-24 15:48 | P.PNPSI_ITS ---
Subjective Subjective Date of Service: 10/24/21 Reason For Visit: Bipolar Disorder Subjective Notes: Conditional Voluntary Healthcare Proxy: No Guardianship: No Medical Problems Affecting Mental Status: No Interim History: Reports some improvement in symptoms. Reports relief Today, discussed his history of bipolar disorder and some of the symptoms which I am ashamed of , including some target sx when getting manic-singing and dancing outside, a few instances where he fought with his father and police needed to interviene. Discussed some early triggers-poor sleep, increase in focus and energy, increase in scheduling of projects but not completing them. Feeling a need to improve his mgt of symptoms before they become out of control. Discussed work goals-discussed [employer] which he has interest in. No SE from medications. Medication Compliance: Yes Side effects from medications: No Attending Groups: Intermittent Review of Systems Acute medical concerns: No Medical Review of Systems: unchanged Review of Systems Psychiatric: Reports other (mild akathesia) Mental Status Exam Mental Status Exam Patient Appearance: Appropriate Patient Orientation: Person, Place, Time and Situation Level of Consciousness: Alert Patient Behavior: Talkative, Cooperative and Good Eye Contact Mood Description: Anxious Affect Description: Constricted Patient Cognition Impaired: No Ability to Follow Directions: Good Speech Pattern: Spontaneous Speech Memory Description: Episodic Impaired Perceptual Disturbances: Depersonalization and Derealization Thought Content: positive for [place] and positive for Circumstantial Depressive Symptoms: Low Self Esteem Judgement: Fair Diagnostics Vital Signs (24Hr): Vital Signs - 24 hr 10/23/21 23:30 10/24/21 08:18 Temperature 98.0 F 97.7 F Pulse Rate 88 61 Blood Pressure 128/60 107/57 L Pulse Oximetry 99 Oxygen Delivery Method Room Air Medications Medications Current Medications Acetaminophen (Acetaminophen 325 Mg Tablet) 650 mg PO Q6H PRN PRN Reason: Headache/Pain Mild Scale (1-3) Al Hydroxide/Mg Hydroxide (Magnesium Hydrox/Alum Hydrox 30 Ml Oral.Susp) 30 ml PO Q6H PRN PRN Reason: Heartburn/Nausea Benztropine Mesylate (Benztropine Mesylate 1 Mg Tablet) 1 mg PO BID KATHERINE Last Admin: 10/24/21 08:43 Dose: 1 mg Benztropine Mesylate (Benztropine Mesylate 1 Mg Tablet) 1 mg PO BID PRN PRN Reason: Extrapyramidal Effects Clonidine HCl (Clonidine Hcl 0.1 Mg Tablet) 0.1 mg PO BID [facility]; Protocol Last Admin: 10/24/21 08:43 Dose: 0.1 mg Diphenhydramine HCl (Diphenhydramine Hcl 25 Mg Tablet) 50 mg PO Q4H PRN PRN Reason: agitation Divalproex Sodium (Divalproex Sodium Er 500 Mg Tab.Er.24h) 1,500 mg PO BEDTIME [facility] Last Admin: 10/23/21 20:38 Dose: 1,500 mg Haloperidol (Haloperidol 5 Mg Tablet) 5 mg PO BEDTIME [facility]ATH[facility] Last Admin: 10/23/21 20:38 Dose: 5 mg Haloperidol (Haloperidol 5 Mg Tablet) 5 mg PO Q4H PRN PRN Reason: psychosis Hydroxyzine HCl (Hydroxyzine Hcl 25 Mg Tablet) 25 mg PO Q6H PRN PRN Reason: Anxiety Last Admin: 10/22/21 20:27 Dose: 25 mg Lorazepam (Lorazepam 1 Mg Tablet) 1 mg PO Q4H PRN PRN Reason: Anxiety Lorazepam (Lorazepam 1 Mg Tablet) 1 mg PO BID [facility] Last Admin: 10/24/21 08:43 Dose: 1 mg Magnesium Hydroxide (Milk Of Magnesia 30 Ml Oral.Susp) 30 ml PO DAILY PRN PRN Reason: Constipation Nicotine Polacrilex (Nicotine Polacrilex 2 Mg Gum) 4 mg BUCCAL Q2H PRN PRN Reason: Nicotine Cravings Paliperidone (Paliperidone Er 9 Mg Tab.Er.24) 9 mg PO DAILY [facility] Last Admin: 10/24/21 08:43 Dose: 9 mg Propranolol HCl (Propranolol Hcl 10 Mg Tablet) 5 mg PO BID [facility]; Protocol Trazodone HCl (Trazodone Hcl 50 Mg Tablet) 50 mg PO BEDTIME PRN PRN Reason: Insomnia Last Admin: 10/18/21 00:08 Dose: 50 mg Allergies Allergies Allergy/AdvReac Type Severity Reaction Status Date / Time No Known Allergies Allergy Verified 10/15/21 19:21 Assessment & Plan Assessment & Plan (1) Bipolar disorder: Status: Acute Code(s): F31.9 - Bipolar disorder, unspecified Plan 26 yo male, hx of bipolar disorder, presents in transfer from [facility]. He had been in intake with [facility] where he expressed SI. Reports medications do not work and he is looking to make changes. Asks about an [facility] and community Lynne guardianship. Reports intrusive thoughts of the devil and believes he may have caused the Holocaust. Hx of violent intrusive visual sx which are bothersome however pt reports no plan and worries how he will manage these when manic again. Discussed Invega trial with Olanzapine available during trial. Pt agrees. Plan: Invega 3 mg daily Discontinue Geodon Olanzapine prn Valproate Level, Lipids, A1c Titrate Valproate to therapeutic levels. Assessment and plan for 10/21/2021 Patient is case reviewed with treatment team patient with delusional thinking that he is evil somehow deserves to be punished. He denies active self-harm in this setting. He is agreeable to long-acting injectable. History of depression has been treated with antidepressants previously history of manic episodes. Continue Invega trial consider antidepressant augmentation assmt and plan for 10/22/21 Patient depressed flat somewhat psychomotor retarded. States he is feeling a little bit better seems less floridly preoccupied with psychotic delusions that he has a mass killer has been on antidepressants in the past if he broke through Depakote would consider lithium if he has never had a lithium trial could start Invega sustena Shortly 10/23/21 Family meeting by phone and discussion with pt re [facility]. Father may be reached at [phone]. -Increase Invega to 9 mg daily. If tolerated, will plan [facility]ustenna on 10/27 -Discontinue Olanzapine -Increase Valproate to 1500 mg daily -Haldol 5 mg HS and 5 mg prn psychotic agitation Benztropine 1 mg bid prn in addition to scheduled dosing. 10/24/21 Propranolol 5 mg bid to address akathesia sx (pt has had success in the past with this agent) I spent minutes with the patient and/or on the patient floor today, greater than?50% of which was spent counseling/coordinating care. Patient educated on: medication risk/benefits and therapeutic strategies Informed Consent: understands and further education needed Reason for contiued inpatient stay Substantial Risk for: harm to self, harm to others, inability to function and rapid decompensation
[2021-10-24 16:00] VITALS: BP 102/62; PULSE 70; RESP 16; TEMP 36.2; O2SAT 100
[2021-10-24] MEDS: Propranolol HCL 10 MG TABLET 5 MG PO (19:34)
[2021-10-24] MEDS: HaloperidoL 5 MG TABLET PO (19:34)
[2021-10-24] MEDS: Divalproex Sodium ER 500 MG TAB.ER.24H 1500 MG PO (19:36)
[2021-10-25 08:10] VITALS: BP 90/57; PULSE 71; TEMP 36.3; O2SAT 100
[2021-10-25] MEDS: Propranolol HCL 10 MG TABLET 5 MG PO ×2 (09:00→20:20)
[2021-10-25] MEDS: cloNIDine HCL 0.1 MG TABLET PO ×2 (09:00→20:20)
[2021-10-25] MEDS: Benztropine Mesylate 1 MG TABLET PO ×2 (09:01→20:20)
[2021-10-25] MEDS: LORazepam 1 MG TABLET PO ×3 (09:01→20:21)
[2021-10-25] MEDS: Paliperidone ER 9 MG TAB.ER.24 PO (09:01)
--- NOTE | 2021-10-25 16:00 | P.PNPSI_ITS ---
Subjective Subjective Date of Service: 10/25/21 Reason For Visit: Bipolar Disorder Subjective Notes: Conditional Voluntary Healthcare Proxy: No Guardianship: No Medical Problems Affecting Mental Status: No Interim History: Sandra reports some relief of symptoms. We had a telephone meeting with pt and mom, who is a pharmacist, to gather her input regarding medications, efficacy and adverse responses. Pt reports he is anxious as his father has been critical of weight gain. Mother was apologetic to pt and states that pt's father only has his health as a concern. She states these statements were made by pt's father with the motive of concern for pt's health vs being critical. Trials: Seroquel-very effective but with wt gain, Risperdal, Abilify, Latuda- long trial that was not helpful approx 4 years ago, Olanzapine-worked well, quickly, but with weight gain; Pierre Part-renal concerns, Lamictal-unhelpful. Review of antidepressants tried-Prozac, Wellbutrin Review of anxiety mgt strategies-Klonopin, Ativan, Buspar, Gabapentin- discussed addictive concerns Pt is prone to sx akathesia Discussed Wellbutrin and Gabapentin additions which we will trial. Discussed Invega Sustenna IM to begin 10/27. Medication Compliance: Yes Side effects from medications: Yes (mild akathesia) Attending Groups: Intermittent Review of Systems Acute medical concerns: No Medical Review of Systems: unchanged Review of Systems Psychiatric: Reports anxiety, Reports depression, Reports difficulty concentrating, Reports hopelessness, Reports anhedonia and Reports paranoia Mental Status Exam Mental Status Exam Patient Appearance: Appropriate Patient Orientation: Person, Place, Time and Situation Level of Consciousness: Alert Patient Behavior: Talkative, Cooperative and Good Eye Contact Mood Description: Anxious Affect Description: Constricted Patient Cognition Impaired: No Ability to Follow Directions: Good Speech Pattern: Spontaneous Speech Memory Description: Episodic Impaired Perceptual Disturbances: Depersonalization and Derealization Thought Content: positive for [place] and positive for Circumstantial Depressive Symptoms: Low Self Esteem Judgement: Fair Diagnostics Vital Signs (24Hr): Vital Signs - 24 hr 10/25/21 08:10 Temperature 97.3 F Pulse Rate 71 Blood Pressure 90/57 L Pulse Oximetry 100 Oxygen Delivery Method Room Air Medications Medications Current Medications Acetaminophen (Acetaminophen 325 Mg Tablet) 650 mg PO Q6H PRN PRN Reason: Headache/Pain Mild Scale (1-3) Al Hydroxide/Mg Hydroxide (Magnesium Hydrox/Alum Hydrox 30 Ml Oral.Susp) 30 ml PO Q6H PRN PRN Reason: Heartburn/Nausea Benztropine Mesylate (Benztropine Mesylate 1 Mg Tablet) 1 mg PO BID [facility] Last Admin: 10/25/21 09:01 Dose: 1 mg Benztropine Mesylate (Benztropine Mesylate 1 Mg Tablet) 1 mg PO BID PRN PRN Reason: Extrapyramidal Effects Clonidine HCl (Clonidine Hcl 0.1 Mg Tablet) 0.1 mg PO BID [facility]; Protocol Last Admin: 10/25/21 09:00 Dose: 0.1 mg Diphenhydramine HCl (Diphenhydramine Hcl 25 Mg Tablet) 50 mg PO Q4H PRN PRN Reason: agitation Divalproex Sodium (Divalproex Sodium Er 500 Mg Tab.Er.24h) 1,500 mg PO BEDTIME [facility] Last Admin: 10/24/21 19:36 Dose: 1,500 mg Haloperidol (Haloperidol 5 Mg Tablet) 5 mg PO BEDTIME [facility] Last Admin: 10/24/21 19:34 Dose: 5 mg Haloperidol (Haloperidol 5 Mg Tablet) 5 mg PO Q4H PRN PRN Reason: psychosis Hydroxyzine HCl (Hydroxyzine Hcl 25 Mg Tablet) 25 mg PO Q6H PRN PRN Reason: Anxiety Last Admin: 10/22/21 20:27 Dose: 25 mg Lorazepam (Lorazepam 1 Mg Tablet) 1 mg PO Q4H PRN PRN Reason: Anxiety Lorazepam (Lorazepam 1 Mg Tablet) 1 mg PO BID [facility] Last Admin: 10/25/21 09:01 Dose: 1 mg Magnesium Hydroxide (Milk Of Magnesia 30 Ml Oral.Susp) 30 ml PO DAILY PRN PRN Reason: Constipation Nicotine Polacrilex (Nicotine Polacrilex 2 Mg Gum) 4 mg BUCCAL Q2H PRN PRN Reason: Nicotine Cravings Paliperidone (Paliperidone Er 9 Mg Tab.Er.24) 9 mg PO DAILY [facility] Last Admin: 10/25/21 09:01 Dose: 9 mg Propranolol HCl (Propranolol Hcl 10 Mg Tablet) 5 mg PO BID [facility]; Protocol Last Admin: 10/25/21 09:00 Dose: 5 mg Trazodone HCl (Trazodone Hcl 50 Mg Tablet) 50 mg PO BEDTIME PRN PRN Reason: Insomnia Last Admin: 10/18/21 00:08 Dose: 50 mg Allergies Allergies Allergy/AdvReac Type Severity Reaction Status Date / Time No Known Allergies Allergy Verified 10/15/21 19:21 Assessment & Plan Assessment & Plan (1) Bipolar disorder: Status: Acute Code(s): F31.9 - Bipolar disorder, unspecified Plan 26 yo male, hx of bipolar disorder, presents in transfer from [facility]. He had been in intake with [facility] where he expressed SI. Reports medications do not work and he is looking to make changes. Asks about an SLATER and community Lynne guardianship. Reports intrusive thoughts of the devil and believes he may have caused the Holocaust. Hx of violent intrusive visual sx which are bothersome however pt reports no plan and worries how he will manage these when manic again. Discussed Invega trial with Olanzapine available during trial. Pt agrees. Plan: Invega 3 mg daily Discontinue Geodon Olanzapine prn Valproate Level, Lipids, A1c Titrate Valproate to therapeutic levels. Assessment and plan for 10/21/2021 Patient is case reviewed with treatment team patient with delusional thinking that he is evil somehow deserves to be punished. He denies active self-harm in this setting. He is agreeable to long-acting injectable. History of depression has been treated with antidepressants previously history of manic episodes. Continue Invega trial consider antidepressant augmentation assmt and plan for 10/22/21 Patient depressed flat somewhat psychomotor retarded. States he is feeling a little bit better seems less floridly preoccupied with psychotic delusions that he has a mass killer has been on antidepressants in the past if he broke through Depakote would consider lithium if he has never had a lithium trial could start Invega sustena Shortly 10/23/21 Family meeting by phone and discussion with pt re [facility]. Father may be reached at [phone]. -Increase Invega to 9 mg daily. If tolerated, will plan Sustenna on 10/27 -Discontinue Olanzapine -Increase Valproate to 1500 mg daily -Haldol 5 mg HS and 5 mg prn psychotic agitation Benztropine 1 mg bid prn in addition to scheduled dosing. 10/24/21 Propranolol 5 mg bid to address akathesia sx (pt has had success in the past with this agent) 10/25/21 Gabapentin 100 mg bid Wellbutrin 75 mg bid I spent minutes with the patient and/or on the patient floor today, greater than?50% of which was spent counseling/coordinating care. Patient educated on: medication risk/benefits Guardian/Caregiver educated on: medication risk/benefits Informed Consent: understands Reason for contiued inpatient stay Substantial Risk for: inability to function and rapid decompensation
[2021-10-25] MEDS: Divalproex Sodium ER 500 MG TAB.ER.24H 1500 MG PO (20:19)
[2021-10-25] MEDS: HaloperidoL 5 MG TABLET PO (20:20)
[2021-10-25] MEDS: Gabapentin 100 MG CAPSULE PO (20:20)
[2021-10-25] MEDS: buPROPion HCL 75 MG TABLET PO (20:20)
[2021-10-26 06:00] VITALS: BP 97/53; PULSE 78; RESP 16; TEMP 36.6; O2SAT 97
[2021-10-26] MEDS: Gabapentin 100 MG CAPSULE PO ×2 (08:03→20:46)
[2021-10-26] MEDS: buPROPion HCL 75 MG TABLET PO ×2 (08:03→20:46)
[2021-10-26] MEDS: Paliperidone ER 9 MG TAB.ER.24 PO (08:03)
[2021-10-26] MEDS: Benztropine Mesylate 1 MG TABLET PO ×2 (08:04→20:47)
[2021-10-26] MEDS: LORazepam 1 MG TABLET PO ×2 (08:04→20:47)
[2021-10-26 12:42] VITALS: BP 111/61; PULSE 87
[2021-10-26 13:23] VITALS: BMI 30.9
--- NOTE | 2021-10-26 16:59 | P.PNPSI_ITS ---
Subjective Subjective Date of Service: 10/26/21 Reason For Visit: Bipolar Disorder Subjective Notes: Conditional Voluntary Healthcare Proxy: No Guardianship: No Interim History: Pt reports feeling improved. Invega Sustenna 234 mg scheduled for 10/27. Pt approves. Today, he focused on how do I stay well and out of the hospital? Several appropriate questions regarding sx/illness mgt. Discussed how difficult it is to have the illness and not be a success . Difficulty in not succeeding in my professional life. Discussed Metformin/Contrave Medication Compliance: Yes Side effects from medications: No Attending Groups: Intermittent Review of Systems Acute medical concerns: No Medical Review of Systems: unchanged Review of Systems Psychiatric: Reports no additional psychiatric complaints Mental Status Exam Mental Status Exam Patient Appearance: Appropriate Patient Orientation: Person, Place, Time and Situation Level of Consciousness: Alert Patient Behavior: Appropriate, Talkative, Cooperative and Good Eye Contact Mood Description: Anxious and Apprehensive Affect Description: Anxious and Apprehensive Patient Cognition Impaired: No Ability to Follow Directions: Good Speech Pattern: Spontaneous Speech Memory Description: Episodic Impaired Hallucinations: Auditory Delusions: Not Present Perceptual Disturbances: Depersonalization and Derealization Thought Process: Goal Oriented Thought Content: positive for Goal Oriented Depressive Symptoms: Increased Anxiety and Low Self Esteem Judgement: Fair Diagnostics Vital Signs (24Hr): Vital Signs - 24 hr 10/26/21 06:00 10/26/21 12:42 Temperature 97.8 F Pulse Rate 78 87 Respiratory Rate 16 Blood Pressure 97/53 L 111/61 Pulse Oximetry 97 Oxygen Delivery Method Room Air Medications Medications Current Medications Acetaminophen (Acetaminophen 325 Mg Tablet) 650 mg PO Q6H PRN PRN Reason: Headache/Pain Mild Scale (1-3) Al Hydroxide/Mg Hydroxide (Magnesium Hydrox/Alum Hydrox 30 Ml Oral.Susp) 30 ml PO Q6H PRN PRN Reason: Heartburn/Nausea Benztropine Mesylate (Benztropine Mesylate 1 Mg Tablet) 1 mg PO BID [facility] Last Admin: 10/26/21 08:04 Dose: 1 mg Benztropine Mesylate (Benztropine Mesylate 1 Mg Tablet) 1 mg PO BID PRN PRN Reason: Extrapyramidal Effects Bupropion HCl (Bupropion Hcl 75 Mg Tablet) 75 mg PO BID [facility] Last Admin: 10/26/21 08:03 Dose: 75 mg Clonidine HCl (Clonidine Hcl 0.1 Mg Tablet) 0.1 mg PO BID [facility]; Protocol Last Admin: 10/26/21 08:03 Dose: Not Given Diphenhydramine HCl (Diphenhydramine Hcl 25 Mg Tablet) 50 mg PO Q4H PRN PRN Reason: agitation Divalproex Sodium (Divalproex Sodium Er 500 Mg Tab.Er.24h) 1,500 mg PO BEDTIME [facility] Last Admin: 10/25/21 20:19 Dose: 1,500 mg Gabapentin (Gabapentin 100 Mg Capsule) 100 mg PO BID [facility] Last Admin: 10/26/21 08:03 Dose: 100 mg Haloperidol (Haloperidol 5 Mg Tablet) 5 mg PO BEDTIME [facility] Last Admin: 10/25/21 20:20 Dose: 5 mg Haloperidol (Haloperidol 5 Mg Tablet) 5 mg PO Q4H PRN PRN Reason: psychosis Hydroxyzine HCl (Hydroxyzine Hcl 25 Mg Tablet) 25 mg PO Q6H PRN PRN Reason: Anxiety Last Admin: 10/22/21 20:27 Dose: 25 mg Lorazepam (Lorazepam 1 Mg Tablet) 1 mg PO Q4H PRN PRN Reason: Anxiety Last Admin: 10/25/21 17:48 Dose: 1 mg Lorazepam (Lorazepam 1 Mg Tablet) 1 mg PO BID [facility] Last Admin: 10/26/21 08:04 Dose: 1 mg Magnesium Hydroxide (Milk Of Magnesia 30 Ml Oral.Susp) 30 ml PO DAILY PRN PRN Reason: Constipation Metformin HCl (Metformin Hcl 500 Mg Tablet) 500 mg PO BIDWM [facility] Nicotine Polacrilex (Nicotine Polacrilex 2 Mg Gum) 4 mg BUCCAL Q2H PRN PRN Reason: Nicotine Cravings Paliperidone (Paliperidone Er 3 Mg Tab.Er.24) 3 mg PO DAILY [facility] Paliperidone Palmitate (Paliperidone Palmitate 234 Mg/1.5 Ml Syringe) 234 mg IM ONCE ONE Stop: 10/27/21 09:55 Propranolol HCl (Propranolol Hcl 10 Mg Tablet) 5 mg PO BID [facility]; Protocol Last Admin: 10/26/21 08:04 Dose: Not Given Trazodone HCl (Trazodone Hcl 50 Mg Tablet) 50 mg PO BEDTIME PRN PRN Reason: Insomnia Last Admin: 10/18/21 00:08 Dose: 50 mg Allergies Allergies Allergy/AdvReac Type Severity Reaction Status Date / Time No Known Allergies Allergy Verified 10/15/21 19:21 Assessment & Plan Assessment & Plan (1) Bipolar disorder: Status: Acute Code(s): F31.9 - Bipolar disorder, unspecified Plan 26 yo male, hx of bipolar disorder, presents in transfer from [facility]. He had been in intake with [facility] where he expressed SI. Reports medications do not work and he is looking to make changes. Asks about an SLATER and community Lyn[place] guardianship. Reports intrusive thoughts of the devil and believes he may have caused the Holocaust. Hx of violent intrusive visual sx which are bothersome however pt reports no plan and worries how he will manage these when manic again. Discussed Invega trial with Olanzapine available during trial. Pt agrees. Plan: Invega 3 mg daily Discontinue Geodon Olanzapine prn Valproate Level, Lipids, A1c Titrate Valproate to therapeutic levels. Assessment and plan for 10/21/2021 Patient is case reviewed with treatment team patient with delusional thinking that he is evil somehow deserves to be punished. He denies active self-harm in this setting. He is agreeable to long-acting injectable. History of depression has been treated with antidepressants previously history of manic episodes. Continue Invega trial consider antidepressant augmentation assmt and plan for 10/22/21 Patient depressed flat somewhat psychomotor retarded. States he is feeling a little bit better seems less floridly preoccupied with psychotic delusions that he has a mass killer has been on antidepressants in the past if he broke through Depakote would consider lithium if he has never had a lithium trial could start Invega sustena Shortly 10/23/21 Family meeting by phone and discussion with pt [facility]. Father may be reached at [phone]. -Increase Invega to 9 mg daily. If tolerated, will plan Sustenna on 10/27 -Discontinue Olanzapine -Increase Valproate to 1500 mg daily -Haldol 5 mg HS and 5 mg prn psychotic agitation Benztropine 1 mg bid prn in addition to scheduled dosing. 10/24/21 Propranolol 5 mg bid to address akathesia sx (pt has had success in the past with this agent) 10/25/21 Gabapentin 100 mg bid Wellbutrin 75 mg bid 10/26/21 Invega Sustenna 234 mg IM 10/27 Decrease Invega to 3 mg daily Metformin 500 mg bid EKG, Valproate Level, CBCD, CMP 10/27 I spent minutes with the patient and/or on the patient floor today, greater than?50% of which was spent counseling/coordinating care. Patient educated on: medication risk/benefits and therapeutic strategies Informed Consent: understands and further education needed Reason for contiued inpatient stay Substantial Risk for: harm to self, harm to others, inability to function and rapid decompensation
[2021-10-26] MEDS: metFORMIN HCl 500 MG TABLET PO (17:24)
[2021-10-26 18:00] VITALS: BP 124/78; PULSE 104; RESP 14; TEMP 36.4
[2021-10-26] MEDS: HaloperidoL 5 MG TABLET PO (20:46)
[2021-10-26] MEDS: Propranolol HCL 10 MG TABLET 5 MG PO (20:46)
[2021-10-26] MEDS: Divalproex Sodium ER 500 MG TAB.ER.24H 1500 MG PO (20:46)
[2021-10-26] MEDS: cloNIDine HCL 0.1 MG TABLET PO (20:47)
[2021-10-27 08:13] VITALS: BP 106/58; PULSE 89; RESP 16; TEMP 36.6; O2SAT 99
[2021-10-27] MEDS: Gabapentin 100 MG CAPSULE PO ×2 (08:23→20:22)
[2021-10-27] MEDS: Paliperidone ER 3 MG TAB.ER.24 PO (08:23)
[2021-10-27] MEDS: Benztropine Mesylate 1 MG TABLET PO ×2 (08:23→20:21)
[2021-10-27] MEDS: metFORMIN HCl 500 MG TABLET PO ×2 (08:23→17:28)
[2021-10-27] MEDS: buPROPion HCL 75 MG TABLET PO ×2 (08:23→20:21)
[2021-10-27 08:24] LABS: MANUAL DIFF FLAG NO
[2021-10-27] MEDS: LORazepam 1 MG TABLET PO ×2 (08:24→20:21)
[2021-10-27 08:26] LABS: Basophils Percent Auto 0.3 % (0-2); Eosinophils Absolute Auto 0.2 X10*3/uL (0.0-0.4); Eosinophils Percent Auto 2.4 % (0-4); Hematocrit 48.1 % (42.0-52.0); Hemoglobin 16.4 g/dl (14.0-18.0); Imm Gran Abs Auto 0.06 X10*3/uL (0.00-0.03); Imm Gran Pct Auto 0.9 % (0.0-0.4); Lymphocytes Absolute Auto 2.3 X10*3/uL (1.2-4.9); Lymphocytes Percent Auto 34.7 % (20-40); Mean Corpuscular HGB Conc 34.1 g/dl (31.0-36.0); Mean Corpuscular Volume 90.9 fL (80.0-98.0); Mean Platelet Volume 11.9 fL (9.4-12.4); Monocytes Absolute Auto 0.7 X10*3/uL (0.1-1.2); Monocytes Percent Auto 10.8 % (2-11); Neutrophils Absolute Auto 3.4 x10*3/uL (2.0-8.3); Neutrophils Percent Auto 50.9 % (45-73); Platelet Count 202 X10*3/uL (160-400); Red Blood Count 5.29 X10*6/uL (4.60-5.80); Red Cell Distribution Width 13.6 % (11.0-16.0); White Blood Count 6.7 X10*3/uL (4.8-10.8)
[2021-10-27 09:04] LABS: Alanine Aminotransferase 33 U/L (0-40); Albumin Level 4.1 g/dL (3.5-5.0); Alkaline Phosphatase 58 U/L (39-117); Anion Gap 14 (12-20); Aspartate Amino Transferase 20 U/L (5-37); Bilirubin Total 0.2 mg/dL (0.0-1.0); Blood Urea Nitrogen 10 mg/dL (9-16); Calcium 9.2 mg/dL (8.4-10.2); Carbon Dioxide 28 mmol/L (22-29); Chloride 102 mmol/L (96-108); Estimated Glomerular Filt Rate > 60; Glucose Random 82 mg/dL (60-115); Potassium 4.9 mmol/L (3.3-5.1); Sodium 139 mmol/L (135-145); Total Protein 7.1 g/dL (6.5-8.0)
[2021-10-27 09:08] LABS: Valproate 72.4 mcg/mL (50.0-100.0)
[2021-10-27] MEDS: Paliperidone Palmitate 234 MG/1.5 ML SYRINGE IM (13:27)
--- NOTE | 2021-10-27 15:16 | HO.PSYCHPN ---
Subjective Subjective Date of Service: 10/27/21 Reason For Visit: Bipolar Disorder Subjective Notes: Conditional Voluntary Healthcare Proxy: No Guardianship: No Medical Problems Affecting Mental Status: No Interim History: Sandra reports feeling improved. Today, he received Invega Sustenna 234mg-his first injection and reports he is feeling well. Tolerating other changes from the past week, reports some decrease in depressive and anxious sx. Discussed his questions about how to live successfully with this illness along with how to live independently. These are his goals- I would like to try to be in hospital as infrequently as possible. . Labs reviewed, EKG was cancelled-unclear as to rationale-reordered. Valproate level 72.4. Pt continues with interest in Contrave Trial-will research with his insurance. Discussed sx of ADD, poor focus-wellbutrin covering this. Medication Compliance: Yes Side effects from medications: No Attending Groups: Yes Review of Systems Acute medical concerns: No Medical Review of Systems: unchanged Review of Systems Psychiatric: Reports anxiety, Reports depression, Reports difficulty concentrating (describes focus issues) and Reports other (generalized worry) Mental Status Exam Mental Status Exam Patient Appearance: Appropriate Patient Orientation: Person, Place, Time and Situation Level of Consciousness: Alert Patient Behavior: Appropriate, Talkative, Cooperative and Good Eye Contact Mood Description: Anxious and Apprehensive Affect Description: Anxious and Apprehensive Patient Cognition Impaired: No Ability to Follow Directions: Good Speech Pattern: Spontaneous Speech Memory Description: Episodic Impaired Hallucinations: Auditory Delusions: Not Present Perceptual Disturbances: Depersonalization and Derealization Thought Process: Goal Oriented Thought Content: positive for Goal Oriented Depressive Symptoms: Increased Anxiety and Low Self Esteem Judgement: Fair Diagnostics Vital Signs (24Hr): Vital Signs - 24 hr 10/26/21 18:00 10/27/21 08:13 Temperature 97.6 F 97.8 F Pulse Rate 104 H 89 Respiratory Rate 14 16 Blood Pressure 124/78 106/58 L Pulse Oximetry 99 Oxygen Delivery Method Room Air BMI result Body Mass Index 30.9 Labs Results: 10/27/21 08:08 10/27/21 08:08 Labs: Laboratory Results - last 48 hr 10/27/21 10/27/21 08:08 08:08 WBC 6.7 RBC 5.29 Hgb 16.4 Hct 48.1 MCV 90.9 MCH 31.0 MCHC 34.1 RDW 13.6 Plt Count 202 MPV 11.9 Immature Gran % (Auto) 0.9 H Neut % (Auto) 50.9 Lymph % (Auto) 34.7 [place] % (Auto) 10.8 Eos % (Auto) 2.4 Baso % (Auto) 0.3 Lymph # (Auto) 2.3 [place] # (Auto) 0.7 Eos # (Auto) 0.2 Baso # (Auto) 0.0 Abs Immat Gran (auto) 0.06 H Absolute Neuts (auto) 3.4 Absolute Nucleated RBC 0.000 Nucleated RBC % (auto) 0.0 Sodium 139 Potassium 4.9 Chloride 102 Carbon Dioxide 28 Anion Gap 14 BUN 10 Creatinine 0.92 Estim Creat Clear Calc TNP Estimated GFR > 60 Random Glucose 82 Calcium 9.2 Total Bilirubin 0.2 AST 20 ALT 33 Alkaline Phosphatase 58 Total Protein 7.1 Albumin 4.1 Valproic Acid 72.4 Medications Medications Current Medications Acetaminophen (Acetaminophen 325 Mg Tablet) 650 mg PO Q6H PRN PRN Reason: Headache/Pain Mild Scale (1-3) Al Hydroxide/Mg Hydroxide (Magnesium Hydrox/Alum Hydrox 30 Ml Oral.Susp) 30 ml PO Q6H PRN PRN Reason: Heartburn/Nausea Benztropine Mesylate (Benztropine Mesylate 1 Mg Tablet) 1 mg PO BID [facility] Last Admin: 10/27/21 08:23 Dose: 1 mg Benztropine Mesylate (Benztropine Mesylate 1 Mg Tablet) 1 mg PO BID PRN PRN Reason: Extrapyramidal Effects Bupropion HCl (Bupropion Hcl 75 Mg Tablet) 75 mg PO BID [facility] Last Admin: 10/27/21 08:23 Dose: 75 mg Clonidine HCl (Clonidine Hcl 0.1 Mg Tablet) 0.1 mg PO BID [facility]; Protocol Last Admin: 10/27/21 08:34 Dose: Not Given Diphenhydramine HCl (Diphenhydramine Hcl 25 Mg Tablet) 50 mg PO Q4H PRN PRN Reason: agitation Divalproex Sodium (Divalproex Sodium Er 500 Mg Tab.Er.24h) 1,500 mg PO BEDTIME [facility] Last Admin: 10/26/21 20:46 Dose: 1,500 mg Gabapentin (Gabapentin 100 Mg Capsule) 100 mg PO BID [facility] Last Admin: 10/27/21 08:23 Dose: 100 mg Haloperidol (Haloperidol 5 Mg Tablet) 5 mg PO BEDTIME [facility] Last Admin: 10/26/21 20:46 Dose: 5 mg Haloperidol (Haloperidol 5 Mg Tablet) 5 mg PO Q4H PRN PRN Reason: psychosis Hydroxyzine HCl (Hydroxyzine Hcl 25 Mg Tablet) 25 mg PO Q6H PRN PRN Reason: Anxiety Last Admin: 10/22/21 20:27 Dose: 25 mg Lorazepam (Lorazepam 1 Mg Tablet) 1 mg PO Q4H PRN PRN Reason: Anxiety Last Admin: 10/25/21 17:48 Dose: 1 mg Lorazepam (Lorazepam 1 Mg Tablet) 1 mg PO BID [facility] Last Admin: 10/27/21 08:24 Dose: 1 mg Magnesium Hydroxide (Milk Of Magnesia 30 Ml Oral.Susp) 30 ml PO DAILY PRN PRN Reason: Constipation Metformin HCl (Metformin Hcl 500 Mg Tablet) 500 mg PO BIDWM [facility] Last Admin: 10/27/21 08:23 Dose: 500 mg Nicotine Polacrilex (Nicotine Polacrilex 2 Mg Gum) 4 mg BUCCAL Q2H PRN PRN Reason: Nicotine Cravings Paliperidone (Paliperidone Er 3 Mg Tab.Er.24) 3 mg PO DAILY [facility] Last Admin: 10/27/21 08:23 Dose: 3 mg Propranolol HCl (Propranolol Hcl 10 Mg Tablet) 5 mg PO BID [facility]; Protocol Last Admin: 10/27/21 08:34 Dose: Not Given Trazodone HCl (Trazodone Hcl 50 Mg Tablet) 50 mg PO BEDTIME PRN PRN Reason: Insomnia Last Admin: 10/18/21 00:08 Dose: 50 mg Allergies Allergies Allergy/AdvReac Type Severity Reaction Status Date / Time No Known Allergies Allergy Verified 10/15/21 19:21 Assessment & Plan Assessment & Plan (1) Bipolar disorder: Status: Acute Code(s): F31.9 - Bipolar disorder, unspecified Plan 26 yo male, hx of bipolar disorder, presents in transfer from [facility]. He had been in intake with [facility] where he expressed SI. Reports medications do not work and he is looking to make changes. Asks about an SLATER and community [place] guardianship. Reports intrusive thoughts of the devil and believes he may have caused the Holocaust. Hx of violent intrusive visual sx which are bothersome however pt reports no plan and worries how he will manage these when manic again. Discussed Invega trial with Olanzapine available during trial. Pt agrees. Plan: Invega 3 mg daily Discontinue Geodon Olanzapine prn Valproate Level, Lipids, A1c Titrate Valproate to therapeutic levels. Assessment and plan for 10/21/2021 Patient is case reviewed with treatment team patient with delusional thinking that he is evil somehow deserves to be punished. He denies active self-harm in this setting. He is agreeable to long-acting injectable. History of depression has been treated with antidepressants previously history of manic episodes. Continue Invega trial consider antidepressant augmentation assmt and plan for 10/22/21 Patient depressed flat somewhat psychomotor retarded. States he is feeling a little bit better seems less floridly preoccupied with psychotic delusions that he has a mass killer has been on antidepressants in the past if he broke through Depakote would consider lithium if he has never had a lithium trial could start Invega sustena Shortly 10/23/21 Family meeting by phone [facility]. Father may be reached at [phone]. -Increase Invega to 9 mg daily. If tolerated, will plan Sustenna on 10/27 -Discontinue Olanzapine -Increase Valproate to 1500 mg daily -Haldol 5 mg HS and 5 mg prn psychotic agitation Benztropine 1 mg bid prn in addition to scheduled dosing. 10/24/21 Propranolol 5 mg bid to address akathesia sx (pt has had success in the past with this agent) 10/25/21 Gabapentin 100 mg bid Wellbutrin 75 mg bid 10/26/21 Invega Sustenna 234 mg IM 10/27 Decrease Invega to 3 mg daily Metformin 500 mg bid EKG, Valproate Level, CBCD, CMP 10/2710/27/21 Continue current regime Monitor for SE from SLATER I spent minutes with the patient and/or on the patient floor today, greater than?50% of which was spent counseling/coordinating care. Patient educated on: medication risk/benefits and therapeutic strategies Informed Consent: understands and further education needed Reason for contiued inpatient stay Substantial Risk for: inability to function and rapid decompensation
--- NOTE | 2021-10-27 18:27 | ECG_ITS ---
Test Reason : cp Blood Pressure : / mmHG Vent. Rate : 100 BPM Atrial Rate : 100 BPM P-R Int : 142 ms QRS Dur : 096 ms QT Int : 350 ms P-R-T Axes : 054 037 025 degrees QTc Int : 451 ms Normal sinus rhythm Normal ECG No previous ECGs available Referred By: Kristal Fields Electronically Signed By:Tevin Bella
[2021-10-27 18:44] VITALS: BP 113/69; PULSE 92; RESP 14
[2021-10-27 20:15] VITALS: BP 128/75; PULSE 104; RESP 14
[2021-10-27] MEDS: Divalproex Sodium ER 500 MG TAB.ER.24H 1500 MG PO (20:21)
[2021-10-27] MEDS: Propranolol HCL 10 MG TABLET 5 MG PO (20:21)
[2021-10-27] MEDS: cloNIDine HCL 0.1 MG TABLET PO (20:21)
[2021-10-27] MEDS: HaloperidoL 5 MG TABLET PO (20:22)
[2021-10-28 06:00] VITALS: BP 110/56; PULSE 87; TEMP 36.5; O2SAT 100
[2021-10-28] MEDS: metFORMIN HCl 500 MG TABLET PO ×2 (09:01→16:12)
[2021-10-28] MEDS: cloNIDine HCL 0.1 MG TABLET PO ×2 (09:02→19:52)
[2021-10-28] MEDS: Benztropine Mesylate 1 MG TABLET PO ×2 (09:02→19:55)
[2021-10-28] MEDS: LORazepam 1 MG TABLET PO ×2 (09:02→19:53)
[2021-10-28] MEDS: Paliperidone ER 3 MG TAB.ER.24 PO (09:02)
[2021-10-28] MEDS: buPROPion HCL 75 MG TABLET PO ×2 (09:02→19:53)
[2021-10-28] MEDS: Propranolol HCL 10 MG TABLET 5 MG PO ×2 (09:02→19:53)
[2021-10-28] MEDS: Gabapentin 100 MG CAPSULE PO ×2 (09:02→19:55)
--- NOTE | 2021-10-28 14:10 | HO.PSYCHPN ---
Subjective Subjective Date of Service: 10/28/21 Reason For Visit: Bipolar Disorder Interim History: Chart reviewed. Discussed with Nursing. Patient has been largely isolative. Some internal preoccupation. Today reports that he is starting to feel a bit better regarding mood. Reports less frequent and intense delusions. Also reports much less frequent suicidal ideation. Adamantly denies plans or intent. Still reports thoughts that he may have caused a Holocaust but able to push those aside easier. No medication concerns. Feels safe. Sleep okay. Medication Compliance: Yes Side effects from medications: No Attending Groups: No Review of Systems Acute medical concerns: No Review of Systems Review of Systems Unremarkable Mental Status Exam Mental Status Exam Narrative: Pleasant. Overall engage. Self-care okay. Affect is restricted. Reports feeling less depressed. Intermittent SI no plans or intent. Intermittent delusions but much less intense. Denies hallucinations. Insight and judgment improving Diagnostics Vital Signs (24Hr): Vital Signs - 24 hr 10/27/21 18:44 10/27/21 20:15 10/28/21 06:00 Temperature 97.7 F Pulse Rate 92 104 H 87 Respiratory Rate 14 14 Blood Pressure 113/69 128/75 110/56 L Pulse Oximetry 100 Oxygen Delivery Method Room Air BMI result Body Mass Index 30.9 Labs Results: 10/27/21 08:08 10/27/21 08:08 Labs: Laboratory Results - last 48 hr 10/27/21 10/27/21 08:08 08:08 WBC 6.7 RBC 5.29 Hgb 16.4 Hct 48.1 MCV 90.9 MCH 31.0 MCHC 34.1 RDW 13.6 Plt Count 202 MPV 11.9 Immature Gran % (Auto) 0.9 H Neut % (Auto) 50.9 Lymph % (Auto) 34.7 [place] % (Auto) 10.8 Eos % (Auto) 2.4 Baso % (Auto) 0.3 Lymph # (Auto) 2.3 [place] # (Auto) 0.7 Eos # (Auto) 0.2 Baso # (Auto) 0.0 Abs Immat Gran (auto) 0.06 H Absolute Neuts (auto) 3.4 Absolute Nucleated RBC 0.000 Nucleated RBC % (auto) 0.0 Sodium 139 Potassium 4.9 Chloride 102 Carbon Dioxide 28 Anion Gap 14 BUN 10 Creatinine 0.92 Estim Creat Clear Calc TNP Estimated GFR > 60 Random Glucose 82 Calcium 9.2 Total Bilirubin 0.2 AST 20 ALT 33 Alkaline Phosphatase 58 Total Protein 7.1 Albumin 4.1 Valproic Acid 72.4 Medications Medications Current Medications Acetaminophen (Acetaminophen 325 Mg Tablet) 650 mg PO Q6H PRN PRN Reason: Headache/Pain Mild Scale (1-3) Al Hydroxide/Mg Hydroxide (Magnesium Hydrox/Alum Hydrox 30 Ml Oral.Susp) 30 ml PO Q6H PRN PRN Reason: Heartburn/Nausea Benztropine Mesylate (Benztropine Mesylate 1 Mg Tablet) 1 mg PO BID [facility] Last Admin: 10/28/21 09:02 Dose: 1 mg Benztropine Mesylate (Benztropine Mesylate 1 Mg Tablet) 1 mg PO BID PRN PRN Reason: Extrapyramidal Effects Bupropion HCl (Bupropion Hcl 75 Mg Tablet) 75 mg PO BID [facility] Last Admin: 10/28/21 09:02 Dose: 75 mg Clonidine HCl (Clonidine Hcl 0.1 Mg Tablet) 0.1 mg PO BID [facility]; Protocol Last Admin: 10/28/21 09:02 Dose: 0.1 mg Diphenhydramine HCl (Diphenhydramine Hcl 25 Mg Tablet) 50 mg PO Q4H PRN PRN Reason: agitation Divalproex Sodium (Divalproex Sodium Er 500 Mg Tab.Er.24h) 1,500 mg PO BEDTIME [facility] Last Admin: 10/27/21 20:21 Dose: 1,500 mg Gabapentin (Gabapentin 100 Mg Capsule) 100 mg PO BID [facility] Last Admin: 10/28/21 09:02 Dose: 100 mg Haloperidol (Haloperidol 5 Mg Tablet) 5 mg PO BEDTIME [facility] Last Admin: 10/27/21 20:22 Dose: 5 mg Haloperidol (Haloperidol 5 Mg Tablet) 5 mg PO Q4H PRN PRN Reason: psychosis Hydroxyzine HCl (Hydroxyzine Hcl 25 Mg Tablet) 25 mg PO Q6H PRN PRN Reason: Anxiety Last Admin: 10/22/21 20:27 Dose: 25 mg Lorazepam (Lorazepam 1 Mg Tablet) 1 mg PO BID [facility] Last Admin: 10/28/21 09:02 Dose: 1 mg Magnesium Hydroxide (Milk Of Magnesia 30 Ml Oral.Susp) 30 ml PO DAILY PRN PRN Reason: Constipation Metformin HCl (Metformin Hcl 500 Mg Tablet) 500 mg PO BIDWM [facility] Last Admin: 10/28/21 09:01 Dose: 500 mg Nicotine Polacrilex (Nicotine Polacrilex 2 Mg Gum) 4 mg BUCCAL Q2H PRN PRN Reason: Nicotine Cravings Paliperidone (Paliperidone Er 3 Mg Tab.Er.24) 3 mg PO DAILY [facility] Last Admin: 10/28/21 09:02 Dose: 3 mg Propranolol HCl (Propranolol Hcl 10 Mg Tablet) 5 mg PO BID [facility]; Protocol Last Admin: 10/28/21 09:02 Dose: 5 mg Trazodone HCl (Trazodone Hcl 50 Mg Tablet) 50 mg PO BEDTIME PRN PRN Reason: Insomnia Last Admin: 10/18/21 00:08 Dose: 50 mg Allergies Allergies Allergy/AdvReac Type Severity Reaction Status Date / Time No Known Allergies Allergy Verified 10/15/21 19:21 Assessment & Plan Assessment & Plan (1) Bipolar disorder: Status: Acute Code(s): F31.9 - Bipolar disorder, unspecified Plan 26 yo male, hx of bipolar disorder, presents in transfer from [facility]. He had been in intake with [facility] where he expressed SI. Reports medications do not work and he is looking to make changes. Asks about an SLATER and community Lyn[place] guardianship. Reports intrusive thoughts of the devil and believes he may have caused the Holocaust. Hx of violent intrusive visual sx which are bothersome however pt reports no plan and worries how he will manage these when manic again. Discussed Invega trial with Olanzapine available during trial. Pt agrees. Plan: Invega 3 mg daily Discontinue Geodon Olanzapine prn Valproate Level, Lipids, A1c Titrate Valproate to therapeutic levels. Assessment and plan for 10/21/2021 Patient is case reviewed with treatment team patient with delusional thinking that he is evil somehow deserves to be punished. He denies active self-harm in this setting. He is agreeable to long-acting injectable. History of depression has been treated with antidepressants previously history of manic episodes. Continue Invega trial consider antidepressant augmentation assmt and plan for 10/22/21 Patient depressed flat somewhat psychomotor retarded. States he is feeling a little bit better seems less floridly preoccupied with psychotic delusions that he has a mass killer has been on antidepressants in the past if he broke through Depakote would consider lithium if he has never had a lithium trial could start Invega sustena Shortly 10/23/21 Family meeting by phone and discussion with pt [facility]. Father may be reached at [phone]. -Increase Invega to 9 mg daily. If tolerated, will plan Sustenna on 10/27 -Discontinue Olanzapine -Increase Valproate to 1500 mg daily -Haldol 5 mg HS and 5 mg prn psychotic agitation Benztropine 1 mg bid prn in addition to scheduled dosing. 10/24/21 Propranolol 5 mg bid to address akathesia sx (pt has had success in the past with this agent) 10/25/21 Gabapentin 100 mg bid Wellbutrin 75 mg bid 10/26/21 Invega Sustenna 234 mg IM 10/27 Decrease Invega to 3 mg daily Metformin 500 mg bid EKG, Valproate Level, CBCD, CMP 10/2710/27/21 Continue current regime Monitor for SE from [facility]ATER 10/28/2021: No changes to current regimen I spent minutes with the patient and/or on the patient floor today, greater than?50% of which was spent counseling/coordinating care. Reason for contiued inpatient stay Substantial Risk for: harm to self
[2021-10-28 18:00] VITALS: BP 112/78; PULSE 92; RESP 16; TEMP 36.5; O2SAT 99
[2021-10-28] MEDS: Divalproex Sodium ER 500 MG TAB.ER.24H 1500 MG PO (19:53)
[2021-10-28] MEDS: HaloperidoL 5 MG TABLET PO (19:55)
[2021-10-29] MEDS: buPROPion HCL 75 MG TABLET PO (08:40)
[2021-10-29] MEDS: cloNIDine HCL 0.1 MG TABLET PO ×2 (08:40→20:05)
[2021-10-29] MEDS: Gabapentin 100 MG CAPSULE PO ×2 (08:40→20:07)
[2021-10-29] MEDS: Propranolol HCL 10 MG TABLET 5 MG PO ×2 (08:40→20:06)
[2021-10-29] MEDS: Paliperidone ER 3 MG TAB.ER.24 PO (08:40)
[2021-10-29] MEDS: Benztropine Mesylate 1 MG TABLET PO ×2 (08:40→20:07)
[2021-10-29] MEDS: metFORMIN HCl 500 MG TABLET PO ×2 (08:40→16:59)
[2021-10-29 08:57] VITALS: BP 107/55; PULSE 60; TEMP 36.1; O2SAT 98
--- NOTE | 2021-10-29 11:46 | P.PNPSI_ITS ---
Subjective Subjective Date of Service: 10/29/21 Reason For Visit: Bipolar Disorder Interim History: Continues to be isolative. On wakening reports that mood is slightly better. Less frequent paranoia and denies hallucinations. No SI today. No medication concerns. Feels safe. Sleep okay. Medication Compliance: Yes Side effects from medications: No Attending Groups: No Review of Systems Acute medical concerns: No Review of Systems Review of Systems Unremarkable Mental Status Exam Mental Status Exam Narrative: Pleasant. Overall engage. Self-care okay. Affect is restricted. Reports feeling less depressed. Intermittent SI no plans or intent. Intermittent delusions but much less intense. Denies hallucinations. Insight and judgment improving Diagnostics Vital Signs (24Hr): Vital Signs - 24 hr 10/28/21 18:00 10/29/21 08:57 Temperature 97.7 F 97.0 F Pulse Rate 92 60 Respiratory Rate 16 Blood Pressure 112/78 107/55 L Pulse Oximetry 99 98 Oxygen Delivery Method Room Air Room Air BMI result Body Mass Index 30.9 Labs Results: 10/27/21 08:08 10/27/21 08:08 Medications Medications Current Medications Acetaminophen (Acetaminophen 325 Mg Tablet) 650 mg PO Q6H PRN PRN Reason: Headache/Pain Mild Scale (1-3) Al Hydroxide/Mg Hydroxide (Magnesium Hydrox/Alum Hydrox 30 Ml Oral.Susp) 30 ml PO Q6H PRN PRN Reason: Heartburn/Nausea Benztropine Mesylate (Benztropine Mesylate 1 Mg Tablet) 1 mg PO BID REPLACED BY [facility] Last Admin: 10/29/21 08:40 Dose: 1 mg Benztropine Mesylate (Benztropine Mesylate 1 Mg Tablet) 1 mg PO BID PRN PRN Reason: Extrapyramidal Effects Bupropion HCl (Bupropion Hcl 75 Mg Tablet) 75 mg PO BID REPLACED BY [facility] Last Admin: 10/29/21 08:40 Dose: 75 mg Clonidine HCl (Clonidine Hcl 0.1 Mg Tablet) 0.1 mg PO BID REPLACED BY [facility]; Protocol Last Admin: 10/29/21 08:40 Dose: 0.1 mg Diphenhydramine HCl (Diphenhydramine Hcl 25 Mg Tablet) 50 mg PO Q4H PRN PRN Reason: agitation Divalproex Sodium (Divalproex Sodium Er 500 Mg Tab.Er.24h) 1,500 mg PO BEDTIME REPLACED BY [facility] Last Admin: 10/28/21 19:53 Dose: 1,500 mg Gabapentin (Gabapentin 100 Mg Capsule) 100 mg PO BID REPLACED BY [facility] Last Admin: 10/29/21 08:40 Dose: 100 mg Haloperidol (Haloperidol 5 Mg Tablet) 5 mg PO BEDTIME REPLACED BY [facility] Last Admin: 10/28/21 19:55 Dose: 5 mg Haloperidol (Haloperidol 5 Mg Tablet) 5 mg PO Q4H PRN PRN Reason: psychosis Hydroxyzine HCl (Hydroxyzine Hcl 25 Mg Tablet) 25 mg PO Q6H PRN PRN Reason: Anxiety Last Admin: 10/22/21 20:27 Dose: 25 mg Magnesium Hydroxide (Milk Of Magnesia 30 Ml Oral.Susp) 30 ml PO DAILY PRN PRN Reason: Constipation Metformin HCl (Metformin Hcl 500 Mg Tablet) 500 mg PO BIDWM REPLACED BY [facility] Last Admin: 10/29/21 08:40 Dose: 500 mg Nicotine Polacrilex (Nicotine Polacrilex 2 Mg Gum) 4 mg BUCCAL Q2H PRN PRN Reason: Nicotine Cravings Paliperidone (Paliperidone Er 3 Mg Tab.Er.24) 3 mg PO DAILY REPLACED BY [facility] Last Admin: 10/29/21 08:40 Dose: 3 mg Propranolol HCl (Propranolol Hcl 10 Mg Tablet) 5 mg PO BID REPLACED BY [facility]; Protocol Last Admin: 10/29/21 08:40 Dose: 5 mg Trazodone HCl (Trazodone Hcl 50 Mg Tablet) 50 mg PO BEDTIME PRN PRN Reason: Insomnia Last Admin: 10/18/21 00:08 Dose: 50 mg Allergies Allergies Allergy/AdvReac Type Severity Reaction Status Date / Time No Known Allergies Allergy Verified 10/15/21 19:21 Assessment & Plan Assessment & Plan (1) Bipolar disorder: Status: Acute Code(s): F31.9 - Bipolar disorder, unspecified Plan 26 yo male, hx of bipolar disorder, presents in transfer from [facility]. He had been in intake with [facility] where he expressed SI. Reports medications do not work and he is looking to make changes. Asks about an SLATER and community Lyn[place] guardianship. Reports intrusive thoughts of the devil and believes he may have caused the Holocaust. Hx of violent intrusive visual sx which are bothersome however pt reports no plan and worries how he will manage these when manic again. Discussed Invega trial with Olanzapine available during trial. Pt agrees. Plan: Invega 3 mg daily Discontinue Geodon Olanzapine prn Valproate Level, Lipids, A1c Titrate Valproate to therapeutic levels. Assessment and plan for 10/21/2021 Patient is case reviewed with treatment team patient with delusional thinking that he is evil somehow deserves to be punished. He denies active self-harm in this setting. He is agreeable to long-acting injectable. History of depression has been treated with antidepressants previously history of manic episodes. Continue Invega trial consider antidepressant augmentation assmt and plan for 10/22/21 Patient depressed flat somewhat psychomotor retarded. States he is feeling a little bit better seems less floridly preoccupied with psychotic delusions that he has a mass killer has been on antidepressants in the past if he broke through Depakote would consider lithium if he has never had a lithium trial could start Invega sustena Shortly 10/23/21 Family meeting by phone and discussion with pt [facility]. Father may be reached at [phone]. -Increase Invega to 9 mg daily. If tolerated, will plan Sustenna on 10/27 -Discontinue Olanzapine -Increase Valproate to 1500 mg daily -Haldol 5 mg HS and 5 mg prn psychotic agitation Benztropine 1 mg bid prn in addition to scheduled dosing. 10/24/21 Propranolol 5 mg bid to address akathesia sx (pt has had success in the past w ith this agent) 10/25/21 Gabapentin 100 mg bid Wellbutrin 75 mg bid 10/26/21 Invega Sustenna 234 mg IM 10/27 Decrease Invega to 3 mg daily Metformin 500 mg bid EKG, Valproate Level, CBCD, CMP 10/2710/27/21 Continue current regime Monitor for SE from [facility]ATER 10/29/2021: No changes to current regimen I spent minutes with the patient and/or on the patient floor today, greater than?50% of which was spent counseling/coordinating care. Reason for contiued inpatient stay Substantial Risk for: inability to function
[2021-10-29 20:00] VITALS: BP 112/66; PULSE 91; TEMP 36.1; O2SAT 99
[2021-10-29] MEDS: Divalproex Sodium ER 500 MG TAB.ER.24H 1500 MG PO (20:06)
[2021-10-29] MEDS: HaloperidoL 5 MG TABLET PO (20:07)
[2021-10-30] MEDS: metFORMIN HCl 500 MG TABLET PO ×2 (09:08→18:16)
[2021-10-30] MEDS: Paliperidone ER 3 MG TAB.ER.24 PO (09:08)
[2021-10-30] MEDS: Benztropine Mesylate 1 MG TABLET PO ×2 (09:08→21:08)
[2021-10-30] MEDS: Propranolol HCL 10 MG TABLET 5 MG PO ×2 (09:08→21:07)
[2021-10-30] MEDS: buPROPion HCL 75 MG TABLET PO ×2 (09:08→21:08)
[2021-10-30] MEDS: Gabapentin 100 MG CAPSULE PO ×2 (09:08→21:08)
[2021-10-30] MEDS: cloNIDine HCL 0.1 MG TABLET PO ×2 (09:08→21:07)
[2021-10-30 09:17] VITALS: BP 103/63; PULSE 72; RESP 20; TEMP 36.8; O2SAT 98
--- NOTE | 2021-10-30 15:21 | P.PNPSI_ITS ---
Subjective Subjective Date of Service: 10/30/21 Reason For Visit: Bipolar Disorder Interim History: Continues to be isolative. Reports today that is slightly less depressed. Does have diarrhea mood variation and therefore evenings he appears to do better. No hallucinations. Intermittent SI but much less frequent and intense. Feels less paranoid. No medication concerns. Feels safe. Sleep okay. Medication Compliance: Yes Side effects from medications: No Attending Groups: No Review of Systems Acute medical concerns: No Review of Systems Review of Systems Unremarkable Mental Status Exam Mental Status Exam Narrative: Pleasant. Overall engage. Self-care okay. Affect is restricted. Reports feeling less depressed. Intermittent SI no plans or intent. Intermittent delusions but much less intense. Denies hallucinations. Insight and judgment improving Diagnostics Vital Signs (24Hr): Vital Signs - 24 hr 10/29/21 20:00 10/30/21 09:17 Temperature 96.9 F 98.3 F Pulse Rate 91 72 Respiratory Rate 20 Blood Pressure 112/66 103/63 Pulse Oximetry 99 98 Oxygen Delivery Method Room Air Room Air BMI result Body Mass Index 30.9 Labs Results: 10/27/21 08:08 10/27/21 08:08 Medications Medications Current Medications Acetaminophen (Acetaminophen 325 Mg Tablet) 650 mg PO Q6H PRN PRN Reason: Headache/Pain Mild Scale (1-3) Al Hydroxide/Mg Hydroxide (Magnesium Hydrox/Alum Hydrox 30 Ml Oral.Susp) 30 ml PO Q6H PRN PRN Reason: Heartburn/Nausea Benztropine Mesylate (Benztropine Mesylate 1 Mg Tablet) 1 mg PO BID [facility] Last Admin: 10/30/21 09:08 Dose: 1 mg Benztropine Mesylate (Benztropine Mesylate 1 Mg Tablet) 1 mg PO BID PRN PRN Reason: Extrapyramidal Effects Bupropion HCl (Bupropion Hcl 75 Mg Tablet) 75 mg PO BID [facility] Last Admin: 10/30/21 09:08 Dose: 75 mg Clonidine HCl (Clonidine Hcl 0.1 Mg Tablet) 0.1 mg PO BID [facility]; Protocol Last Admin: 10/30/21 09:08 Dose: 0.1 mg Diphenhydramine HCl (Diphenhydramine Hcl 25 Mg Tablet) 50 mg PO Q4H PRN PRN Reason: agitation Divalproex Sodium (Divalproex Sodium Er 500 Mg Tab.Er.24h) 1,500 mg PO BEDTIME [facility] Last Admin: 10/29/21 20:06 Dose: 1,500 mg Gabapentin (Gabapentin 100 Mg Capsule) 100 mg PO BID [facility] Last Admin: 10/30/21 09:08 Dose: 100 mg Haloperidol (Haloperidol 5 Mg Tablet) 5 mg PO BEDTIME [facility] Last Admin: 10/29/21 20:07 Dose: 5 mg Haloperidol (Haloperidol 5 Mg Tablet) 5 mg PO Q4H PRN PRN Reason: psychosis Hydroxyzine HCl (Hydroxyzine Hcl 25 Mg Tablet) 25 mg PO Q6H PRN PRN Reason: Anxiety Last Admin: 10/22/21 20:27 Dose: 25 mg Magnesium Hydroxide (Milk Of Magnesia 30 Ml Oral.Susp) 30 ml PO DAILY PRN PRN Reason: Constipation Metformin HCl (Metformin Hcl 500 Mg Tablet) 500 mg PO BIDWM [facility] Last Admin: 10/30/21 09:08 Dose: 500 mg Nicotine Polacrilex (Nicotine Polacrilex 2 Mg Gum) 4 mg BUCCAL Q2H PRN PRN Reason: Nicotine Cravings Paliperidone (Paliperidone Er 3 Mg Tab.Er.24) 3 mg PO DAILY [facility] Last Admin: 10/30/21 09:08 Dose: 3 mg Propranolol HCl (Propranolol Hcl 10 Mg Tablet) 5 mg PO BID [facility]; Protocol Last Admin: 10/30/21 09:08 Dose: 5 mg Trazodone HCl (Trazodone Hcl 50 Mg Tablet) 50 mg PO BEDTIME PRN PRN Reason: Insomnia Last Admin: 10/18/21 00:08 Dose: 50 mg Allergies Allergies Allergy/AdvReac Type Severity Reaction Status Date / Time No Known Allergies Allergy Verified 10/15/21 19:21 Assessment & Plan Assessment & Plan (1) Bipolar disorder: Status: Acute Code(s): F31.9 - Bipolar disorder, unspecified Plan 26 yo male, hx of bipolar disorder, presents in transfer from [facility]. He had been in intake with [facility] where he expressed SI. Reports medications do not work and he is looking to make changes. Asks about an SLATER and community [place] guardianship. Reports intrusive thoughts of the devil and believes he may have caused the Holocaust. Hx of violent intrusive visual sx which are bothersome however pt reports no plan and worries how he will manage these when manic again. Discussed Invega trial with Olanzapine available during trial. Pt agrees. Plan: Invega 3 mg daily Discontinue Geodon Olanzapine prn Valproate Level, Lipids, A1c Titrate Valproate to therapeutic levels. Assessment and plan for 10/21/2021 Patient is case reviewed with treatment team patient with delusional thinking that he is evil somehow deserves to be punished. He denies active self-harm in this setting. He is agreeable to long-acting injectable. History of depression has been treated with antidepressants previously history of manic episodes. Continue Invega trial consider antidepressant augmentation assmt and plan for 10/22/21 Patient depressed flat somewhat psychomotor retarded. States he is feeling a little bit better seems less floridly preoccupied with psychotic delusions that he has a mass killer has been on antidepressants in the past if he broke through Depakote would consider lithium if he has never had a lithium trial could start Invega sustena Shortly 10/23/21 [facility] Father may be reached at [phone]. -Increase Invega to 9 mg daily. If tolerated, will plan Sustenna on 10/27 -Discontinue Olanzapine -Increase Valproate to 1500 mg daily -Haldol 5 mg HS and 5 mg prn psychotic agitation Benztropine 1 mg bid prn in addition to scheduled dosing. 10/24/21 Propranolol 5 mg bid to address akathesia sx (pt has had success in the past with this agent) 10/25/21 Gabapentin 100 mg bid Wellbutrin 75 mg bid 10/26/21 Invega Sustenna 234 mg IM 10/27 Decrease Invega to 3 mg daily Metformin 500 mg bid EKG, Valproate Level, CBCD, CMP 10/2710/27/21 Continue current regime Monitor for SE from [facility] 10/30/2021: No changes to current regimen I spent minutes with the patient and/or on the patient floor today, g reater than?50% of which was spent counseling/coordinating care. Reason for contiued inpatient stay Substantial Risk for: inability to function
[2021-10-30] MEDS: Throat Lozenge, Medicated LOZENGE 1 LOZENGE MUCOUS MEM ×2 (15:57→20:03)
[2021-10-30 21:05] VITALS: BP 109/60; PULSE 91; RESP 14; TEMP 36.1
[2021-10-30] MEDS: HaloperidoL 5 MG TABLET PO (21:07)
[2021-10-30] MEDS: Divalproex Sodium ER 500 MG TAB.ER.24H 1500 MG PO (21:07)
[2021-10-31 06:00] VITALS: BP 118/68; PULSE 90; TEMP 36.2; O2SAT 99
[2021-10-31] MEDS: Propranolol HCL 10 MG TABLET 5 MG PO ×2 (08:43→20:46)
[2021-10-31] MEDS: metFORMIN HCl 500 MG TABLET PO ×2 (08:44→18:04)
[2021-10-31] MEDS: Benztropine Mesylate 1 MG TABLET PO ×2 (08:44→20:47)
[2021-10-31] MEDS: cloNIDine HCL 0.1 MG TABLET PO ×2 (08:45→20:47)
[2021-10-31] MEDS: Paliperidone ER 3 MG TAB.ER.24 PO (08:45)
[2021-10-31] MEDS: Gabapentin 100 MG CAPSULE PO ×2 (08:45→20:47)
[2021-10-31] MEDS: buPROPion HCL 75 MG TABLET PO ×2 (08:45→20:59)
[2021-10-31] MEDS: Throat Lozenge, Medicated LOZENGE 1 LOZENGE MUCOUS MEM (08:52)
[2021-10-31] MEDS: hydrOXYzine HCL 25 MG TABLET PO (13:18)
--- NOTE | 2021-10-31 17:04 | HO.PSYCHPN ---
Subjective Subjective Date of Service: 10/31/21 Reason For Visit: Bipolar Disorder Subjective Notes: Conditional Voluntary Healthcare Proxy: No Guardianship: No Medical Problems Affecting Mental Status: No Interim History: No regime changes required over the weekend. Some improvement reported in symptoms. Today, sleeping when tw went to meet with him. Tells team Depression 5, Anxiety 8 with some internal preoccupation. If I go to [place] to be with my parents, does this mean I am a failure at living on my own. Discussion of this statement. Medication Compliance: Yes Side effects from medications: No Attending Groups: Intermittent Review of Systems Acute medical concerns: No Review of Systems Psychiatric: Reports anxiety and Reports depression Mental Status Exam Mental Status Exam Patient Appearance: Appropriate Patient Orientation: Person, Place, Time and Situation Level of Consciousness: Sedated Patient Behavior: Isolative Mood Description: Depressed and Anxious Affect Description: Flat Patient Cognition Impaired: No Ability to Follow Directions: Good Speech Pattern: Spontaneous Speech Memory Description: Intact Hallucinations: None Delusions: Paranoid Ideation, Present and Thought Insert/Delete Thought Process: Distracted and Rumination Thought Content: positive for Obsessional Thoughts, positive for Perseveration, positive for Preoccupation and positive for Suicidal Ideation (denies) Depressive Symptoms: Increased Anxiety and Difficulty Concentrating Judgement: Fair Diagnostics Vital Signs (24Hr): Vital Signs - 24 hr 10/30/21 21:05 10/31/21 06:00 Temperature 97 F 97.2 F Pulse Rate 91 90 Respiratory Rate 14 Blood Pressure 109/60 118/68 Pulse Oximetry 99 BMI result Body Mass Index 30.9 Labs Results: 10/27/21 08:08 10/27/21 08:08 Medications Medications Current Medications Acetaminophen (Acetaminophen 325 Mg Tablet) 650 mg PO Q6H PRN PRN Reason: Headache/Pain Mild Scale (1-3) Al Hydroxide/Mg Hydroxide (Magnesium Hydrox/Alum Hydrox 30 Ml Oral.Susp) 30 ml PO Q6H PRN PRN Reason: Heartburn/Nausea Benzocaine (Throat Lozenge, Medicated Lozenge) 1 lozenge MUCOUS MEM Q2H PRN PRN Reason: Sore Throat Last Admin: 10/31/21 08:52 Dose: 1 lozenge Benztropine Mesylate (Benztropine Mesylate 1 Mg Tablet) 1 mg PO BID [facility] Last Admin: 10/31/21 08:44 Dose: 1 mg Benztropine Mesylate (Benztropine Mesylate 1 Mg Tablet) 1 mg PO BID PRN PRN Reason: Extrapyramidal Effects Bupropion HCl (Bupropion Hcl 75 Mg Tablet) 75 mg PO BID [facility] Last Admin: 10/31/21 08:45 Dose: 75 mg Clonidine HCl (Clonidine Hcl 0.1 Mg Tablet) 0.1 mg PO BID [facility]; Protocol Last Admin: 10/31/21 08:45 Dose: 0.1 mg Diphenhydramine HCl (Diphenhydramine Hcl 25 Mg Tablet) 50 mg PO Q4H PRN PRN Reason: agitation Divalproex Sodium (Divalproex Sodium Er 500 Mg Tab.Er.24h) 1,500 mg PO BEDTIME [facility] Last Admin: 10/30/21 21:07 Dose: 1,500 mg Gabapentin (Gabapentin 100 Mg Capsule) 100 mg PO BID [facility] Last Admin: 10/31/21 08:45 Dose: 100 mg Haloperidol (Haloperidol 5 Mg Tablet) 5 mg PO BEDTIME [facility] Last Admin: 10/30/21 21:07 Dose: 5 mg Haloperidol (Haloperidol 5 Mg Tablet) 5 mg PO Q4H PRN PRN Reason: psychosis Hydroxyzine HCl (Hydroxyzine Hcl 25 Mg Tablet) 25 mg PO Q6H PRN PRN Reason: Anxiety Last Admin: 10/31/21 13:18 Dose: 25 mg Magnesium Hydroxide (Milk Of Magnesia 30 Ml Oral.Susp) 30 ml PO DAILY PRN PRN Reason: Constipation Metformin HCl (Metformin Hcl 500 Mg Tablet) 500 mg PO BIDWM [facility] Last Admin: 10/31/21 08:44 Dose: 500 mg Nicotine Polacrilex (Nicotine Polacrilex 2 Mg Gum) 4 mg BUCCAL Q2H PRN PRN Reason: Nicotine Cravings Paliperidone (Paliperidone Er 3 Mg Tab.Er.24) 3 mg PO DAILY [facility] Last Admin: 10/31/21 08:45 Dose: 3 mg Propranolol HCl (Propranolol Hcl 10 Mg Tablet) 5 mg PO BID [facility]; Protocol Last Admin: 10/31/21 08:43 Dose: 5 mg Trazodone HCl (Trazodone Hcl 50 Mg Tablet) 50 mg PO BEDTIME PRN PRN Reason: Insomnia Last Admin: 10/18/21 00:08 Dose: 50 mg Allergies Allergies Allergy/AdvReac Type Severity Reaction Status Date / Time No Known Allergies Allergy Verified 10/15/21 19:21 Assessment & Plan Assessment & Plan (1) Bipolar disorder: Status: Acute Code(s): F31.9 - Bipolar disorder, unspecified Plan 26 yo male, hx of bipolar disorder, presents in transfer from [facility]. He had been in intake with [facility] where he expressed SI. Reports medications do not work and he is looking to make changes. Asks about an SLATER and community Lynne guardianship. Reports intrusive thoughts of the devil and believes he may have caused the Holocaust. Hx of violent intrusive visual sx which are bothersome however pt reports no plan and worries how he will manage these when manic again. Discussed Invega trial with Olanzapine available during trial. Pt agrees. Plan: Invega 3 mg daily Discontinue Geodon Olanzapine prn Valproate Level, Lipids, A1c Titrate Valproate to therapeutic levels. Assessment and plan for 10/21/2021 Patient is case reviewed with treatment team patient with delusional thinking that he is evil somehow deserves to be punished. He denies active self-harm in this setting. He is agreeable to long-acting injectable. History of depression has been treated with antidepressants previously history of manic episodes. Continue Invega trial consider antidepressant augmentation assmt and plan for 10/22/21 Patient depressed flat somewhat psychomotor retarded. States he is feeling a little bit better seems less floridly preoccupied with psychotic delusions that he has a mass killer has been on antidepressants in the past if he broke through Depakote would consider lithium if he has never had a lithium trial could start Invega sustena Shortly 10/23/21 Family meeting by phone and discussion with pt [facility]. Father may be reached at [phone]. -Increase Invega to 9 mg daily. If tolerated, will plan Sustenna on 10/27 -Discontinue Olanzapine -Increase Valproate to 1500 mg daily -Haldol 5 mg HS and 5 mg prn psychotic agitation Benztropine 1 mg bid prn in addition to scheduled dosing. 10/24/21 Propranolol 5 mg bid to address akathesia sx (pt has had success in the past with this agent) 10/25/21 Gabapentin 100 mg bid Wellbutrin 75 mg bid 10/26/21 Invega Sustenna 234 mg IM 10/27 Decrease Invega to 3 mg daily Metformin 500 mg bid EKG, Valproate Level, CBCD, CMP 10/2710/27/21 Continue current regime Monitor for SE from [facility]ATER 10/30/2021: No changes to current regimen 10/31/2021: Continue current plan. I spent minutes with the patient and/or on the patient floor today, greater than?50% of which was spent counseling/coordinating care. Patient educated on: medication risk/benefits and therapeutic strategies Informed Consent: understands Reason for contiued inpatient stay Substantial Risk for: inability to function and rapid decompensation
[2021-10-31] MEDS: HaloperidoL 5 MG TABLET PO (18:23)
[2021-10-31 20:30] VITALS: BP 122/88; PULSE 83; TEMP 36.4; O2SAT 96
[2021-10-31] MEDS: Divalproex Sodium ER 500 MG TAB.ER.24H 1500 MG PO (20:47)
[2021-11-01 08:30] VITALS: BP 120/72; PULSE 89; TEMP 36.3; O2SAT 98
[2021-11-01] MEDS: Gabapentin 100 MG CAPSULE PO ×2 (09:12→21:55)
[2021-11-01] MEDS: Propranolol HCL 10 MG TABLET 5 MG PO (09:12)
[2021-11-01] MEDS: buPROPion HCL 75 MG TABLET PO (09:12)
[2021-11-01] MEDS: metFORMIN HCl 500 MG TABLET PO ×2 (09:12→18:29)
[2021-11-01] MEDS: cloNIDine HCL 0.1 MG TABLET PO ×2 (09:12→13:45)
[2021-11-01] MEDS: Benztropine Mesylate 1 MG TABLET PO ×2 (09:12→21:55)
[2021-11-01] MEDS: Paliperidone ER 3 MG TAB.ER.24 PO (09:12)
[2021-11-01] MEDS: Throat Lozenge, Medicated LOZENGE 1 LOZENGE MUCOUS MEM (09:13)
[2021-11-01] MEDS: HaloperidoL 5 MG TABLET PO ×2 (12:18→21:56)
[2021-11-01 13:46] VITALS: BP 107/57; PULSE 97
--- NOTE | 2021-11-01 15:58 | P.PNPSI_ITS ---
Subjective Subjective Date of Service: 11/01/21 Reason For Visit: Bipolar Disorder Subjective Notes: Conditional Voluntary Healthcare Proxy: No Guardianship: No Medical Problems Affecting Mental Status: No Interim History: Depression 6, Anxiety 8, reports frequent intrusive thoughts, +SI and thoughts to harm others. Denies any plan or intent to act upon these. Also reports vertigo,dizziness with position changes. Appt today with Bailey to discuss his goals for independent living. Meds reviewed and changes made with Sandra. Reports weight gain (wt today 204.82. States goal is 160-180. Nutritional consult ordered to discuss weight loss. Review of regime with parents-they may visit from [place] next week. They discussed if pt should return to school as they are seeing his efforts to complete his degree as triggers to increase in sx of illness. Discussed Strattera trial as well as pt often reports poor focus and concentration. Medication Compliance: Yes Side effects from medications: Yes (vertigo, dizziness) Attending Groups: Intermittent Review of Systems Acute medical concerns: No Medical Review of Systems: unchanged Review of Systems Psychiatric: Reports anxiety, Reports change in appetite, Reports depression, Reports difficulty concentrating, Reports hopelessness, Reports paranoia, Reports homicidal ideation and Reports suicidal ideation Mental Status Exam Mental Status Exam Patient Appearance: Appropriate Patient Orientation: Person, Place, Time and Situation Level of Consciousness: Alert Patient Behavior: Talkative, Cooperative, Anxious, Distractible and Good Eye Contact Mood Description: Withdrawn, Depressed, Anxious and Apprehensive Affect Description: Flat Patient Cognition Impaired: No Ability to Follow Directions: Good Speech Pattern: Spontaneous Speech Memory Description: Intact Hallucinations: None Delusions: Paranoid Ideation, Present and Thought Insert/Delete Perceptual Disturbances: Depersonalization and Derealization Thought Process: Distracted and Rumination Thought Content: positive for Obsessional Thoughts, positive for Perseveration, positive for Preoccupation, positive for Suicidal Ideation and positive for Homicidal Ideation Depressive Symptoms: Increased Anxiety, Diff. Making Decisions, Sleeping More Than Usual, Loss of Int. in Activity, Feelings of Worthlessness, Significant Weight Gain, Hopelessness, Isolating-Friends/Family, Increased Fatigue, Thoughts of /Suicide, Low Self Esteem and Loss of Energy Abnormal Motor Activity Signs and Symptoms: Restlessness Judgement: Fair Diagnostics Vital Signs (24Hr): Vital Signs - 24 hr 10/31/21 20:30 11/01/21 08:30 11/01/21 13:46 Temperature 97.5 F 97.3 F Pulse Rate 83 89 97 Blood Pressure 122/88 120/72 107/57 L Pulse Oximetry 96 98 Oxygen Delivery Method Room Air Room Air BMI result Body Mass Index 30.9 Labs Results: 10/27/21 08:08 10/27/21 08:08 Medications Medications Current Medications Acetaminophen (Acetaminophen 325 Mg Tablet) 650 mg PO Q6H PRN PRN Reason: Headache/Pain Mild Scale (1-3) Al Hydroxide/Mg Hydroxide (Magnesium Hydrox/Alum Hydrox 30 Ml Oral.Susp) 30 ml PO Q6H PRN PRN Reason: Heartburn/Nausea Benzocaine (Throat Lozenge, Medicated Lozenge) 1 lozenge MUCOUS MEM Q2H PRN PRN Reason: Sore Throat Last Admin: 11/01/21 09:13 Dose: 1 lozenge Benztropine Mesylate (Benztropine Mesylate 1 Mg Tablet) 1 mg PO BID KATHERINE Last Admin: 11/01/21 09:12 Dose: 1 mg Benztropine Mesylate (Benztropine Mesylate 1 Mg Tablet) 1 mg PO BID PRN PRN Reason: Extrapyramidal Effects Bupropion HCl (Bupropion Hcl Xl 150 Mg Tab.Er.24h) 150 mg PO DAILY KATHERINE Clonidine HCl (Clonidine Hcl 0.1 Mg Tablet) 0.1 mg PO BID PRN; Protocol PRN Reason: anxiety Last Admin: 11/01/21 13:45 Dose: 0.1 mg Diphenhydramine HCl (Diphenhydramine Hcl 25 Mg Tablet) 50 mg PO Q4H PRN PRN Reason: agitation Divalproex Sodium (Divalproex Sodium Er 500 Mg Tab.Er.24h) 1,500 mg PO BEDTIME KATHERINE Last Admin: 10/31/21 20:47 Dose: 1,500 mg Gabapentin (Gabapentin 100 Mg Capsule) 100 mg PO BID KATHERINE Last Admin: 11/01/21 09:12 Dose: 100 mg Haloperidol (Haloperidol 5 Mg Tablet) 5 mg PO Q4H PRN PRN Reason: psychosis Last Admin: 11/01/21 12:18 Dose: 5 mg Haloperidol (Haloperidol 5 Mg Tablet) 5 mg PO BID KATHERINE Hydroxyzine HCl (Hydroxyzine Hcl 25 Mg Tablet) 25 mg PO Q6H PRN PRN Reason: Anxiety Last Admin: 10/31/21 13:18 Dose: 25 mg Magnesium Hydroxide (Milk Of Magnesia 30 Ml Oral.Susp) 30 ml PO DAILY PRN PRN Reason: Constipation Metformin HCl (Metformin Hcl 500 Mg Tablet) 500 mg PO BIDWM KATHERINE Last Admin: 11/01/21 09:12 Dose: 500 mg Nicotine Polacrilex (Nicotine Polacrilex 2 Mg Gum) 4 mg BUCCAL Q2H PRN PRN Reason: Nicotine Cravings Propranolol HCl (Propranolol Hcl 10 Mg Tablet) 10 mg PO BEDTIME KATHERINE; Protocol Saliva Substitute (Dry Mouth [place] 60 Ml [place]) 1 spray MUCOUS MEM Q2H PRN PRN Reason: dry mouth Trazodone HCl (Trazodone Hcl 50 Mg Tablet) 50 mg PO BEDTIME PRN PRN Reason: Insomnia Last Admin: 10/18/21 00:08 Dose: 50 mg Allergies Allergies Allergy/AdvReac Type Severity Reaction Status Date / Time No Known Allergies Allergy Verified 10/15/21 19:21 Assessment & Plan Assessment & Plan (1) Bipolar disorder: Status: Acute Code(s): F31.9 - Bipolar disorder, unspecified Plan 26 yo male, hx of bipolar disorder, presents in transfer from [facility]. He had been in intake with [facility] where he expressed SI. Reports medications do not work and he is looking to make changes. Asks about an SLATER and community Lynne guardianship. Reports intrusive thoughts of the devil and believes he may have caused the Holocaust. Hx of violent intrusive visual sx which are bothersome however pt reports no plan and worries how he will manage these when manic again. Discussed Invega trial with Olanzapine available during trial. Pt agrees. Plan: Invega 3 mg daily Discontinue Geodon Olanzapine prn Valproate Level, Lipids, A1c Titrate Valproate to therapeutic levels. Assessment and plan for 10/21/2021 Patient is case reviewed with treatment team patient with delusional thinking that he is evil somehow deserves to be punished. He denies active self-harm in this setting. He is agreeable to long-acting injectable. History of depression has been treated with antidepressants previously history of manic episodes. Continue Invega trial consider antidepressant augmentation assmt and plan for 10/22/21 Patient depressed flat somewhat psychomotor retarded. States he is feeling a little bit better seems less floridly preoccupied with psychotic delusions that he has a mass killer has been on antidepressants in the past if he broke through Depakote would consider lithium if he has never had a lithium trial could start Invega sustena Shortly 10/23/21 Family meeting by phone and discussion with pt alis moses. Father may be reached at [phone]. -Increase Invega to 9 mg daily. If tolerated, will plan Sustenna on 10/27 -Discontinue Olanzapine -Increase Valproate to 1500 mg daily -Haldol 5 mg HS and 5 mg prn psychotic agitation Benztropine 1 mg bid prn in addition to scheduled dosing. 10/24/21 Propranolol 5 mg bid to address akathesia sx (pt has had success in the past with this agent) 10/25/21 Gabapentin 100 mg bid Wellbutrin 75 mg bid 10/26/21 Invega Sustenna 234 mg IM 10/27 Decrease Invega to 3 mg daily Metformin 500 mg bid EKG, Valproate Level, CBCD, CMP 10/2710/27/21 Continue current regime Monitor for SE from SLATER 10/30/2021: No changes to current regimen 11/01/21 Orthostatic Vital Signs BID-sx of vertigo, dizziness Change Clonidine to prn Change Propranolol to 10 mg hs from 5 mg bid Change Wellbutrin to XL 150 mg a.m. Discontinue PO Invega Increase Haldol to 5 mg bid Sustenna due 11/04/21. I spent minutes with the patient and/or on the patient floor today, greater than?50% of which was spent counseling/coordinating care. Reason for contiued inpatient stay Substantial Risk for: harm to self, harm to others, inability to function and rapid decompensation
--- NOTE | 2021-11-01 16:12 | MHC.CLN ---
Addendum entered by Misty Grimaldo RD 11/01/21 16:16: PATIENT HAD NO QUESTIONS AND DID NOT EASILY ENGAGE IN CONVERSATION. Original Note: NUTRITION CONSULT FOR WEIGHT LOSS.PATIENT STATED THAT WEIGHED 160-180# 2 YEARS AGO. CURRENT WEIGHT APPROXIMATELY 209#. TAKES METFORMIN. A1C 5.1 SHOWING EXCELLENT BLOOD SUGAR CONTROL. PROVIDED HANDOUT HEALTHY MEAL PLANNING . DISCUSSED PORTION SIZES AND SNACKING. PATIENT HAD NO QUETIONS
[2021-11-01 18:00] VITALS: BP 110/62; PULSE 95; TEMP 36.2; O2SAT 98
[2021-11-01] MEDS: Propranolol HCL 10 MG TABLET PO (21:55)
[2021-11-01] MEDS: Divalproex Sodium ER 500 MG TAB.ER.24H 1500 MG PO (21:55)
[2021-11-02 06:00] VITALS: BP 105/56; PULSE 75; TEMP 36.4; O2SAT 98
[2021-11-02] MEDS: HaloperidoL 5 MG TABLET PO ×2 (08:10→20:21)
[2021-11-02] MEDS: metFORMIN HCl 500 MG TABLET PO ×2 (08:10→16:07)
[2021-11-02] MEDS: buPROPion HCl XL 150 MG TAB.ER.24H PO (08:10)
[2021-11-02] MEDS: Gabapentin 100 MG CAPSULE PO ×2 (08:10→20:21)
[2021-11-02] MEDS: Benztropine Mesylate 1 MG TABLET PO ×2 (08:10→20:21)
[2021-11-02 09:42] VITALS: BP 118/56; PULSE 63
[2021-11-02] MEDS: hydrOXYzine HCL 25 MG TABLET PO (09:50)
[2021-11-02 11:09] VITALS: BMI 30.3
[2021-11-02] MEDS: Throat Lozenge, Medicated LOZENGE 1 LOZENGE MUCOUS MEM (11:49)
[2021-11-02 14:00] VITALS: BP 131/68; PULSE 73
--- NOTE | 2021-11-02 15:07 | P.PNPSI_ITS ---
Subjective Subjective Date of Service: 11/02/21 Reason For Visit: Bipolar Disorder Subjective Notes: Conditional Voluntary Healthcare Proxy: No Guardianship: No Medical Problems Affecting Mental Status: No Interim History: Anxiety is a main concern of pt. Discussed Klonopin trial. He has had success before on this. Will trial 0.5 mg bid. Reports decrease in SI, decrease in intrusive thoughts. No orthostasis 118/56 63 lying; 123/76 86 sitting, 117/72 90 standing. Weight 93.2. Discussed increase in anxiety regarding a return to school. Review of discussion with parents. Pt reviewed his meeting with the [employer] and discussed what would be needed financially and for a time investment f or him to continue with this modality. Medication Compliance: Yes Side effects from medications: No Attending Groups: Intermittent Review of Systems Acute medical concerns: No Medical Review of Systems: unchanged Review of Systems Psychiatric: Reports anxiety and Reports depression Mental Status Exam Mental Status Exam Patient Appearance: Appropriate Patient Orientation: Person, Place, Time and Situation Level of Consciousness: Alert Patient Behavior: Talkative, Cooperative, Anxious, Distractible and Good Eye Contact Mood Description: Withdrawn, Depressed, Anxious and Apprehensive Affect Description: Flat Patient Cognition Impaired: No Ability to Follow Directions: Good Speech Pattern: Spontaneous Speech Memory Description: Intact Hallucinations: None Perceptual Disturbances: Derealization Thought Process: Distracted and Rumination Thought Content: positive for Goal Oriented Depressive Symptoms: Increased Anxiety, Sleeping More Than Usual, Low Self Esteem and Loss of Energy Abnormal Motor Activity Signs and Symptoms: Restlessness Judgement: Fair Diagnostics Vital Signs (24Hr): Vital Signs - 24 hr 11/01/21 18:00 11/02/21 06:00 11/02/21 09:42 Temperature 97.2 F 97.5 F Pulse Rate 95 75 63 Blood Pressure 110/62 105/56 L 118/56 L Pulse Oximetry 98 98 Oxygen Delivery Method Room Air Room Air 11/02/21 14:00 Temperature Pulse Rate 73 Blood Pressure 131/68 Pulse Oximetry Oxygen Delivery Method BMI result Body Mass Index 30.3 Labs Results: 10/27/21 08:08 11/03/21 08:07 Medications Medications Current Medications Acetaminophen (Acetaminophen 325 Mg Tablet) 650 mg PO Q6H PRN PRN Reason: Headache/Pain Mild Scale (1-3) Al Hydroxide/Mg Hydroxide (Magnesium Hydrox/Alum Hydrox 30 Ml Oral.Susp) 30 ml PO Q6H PRN PRN Reason: Heartburn/Nausea Benzocaine (Throat Lozenge, Medicated Lozenge) 1 lozenge MUCOUS MEM Q2H PRN PRN Reason: Sore Throat Last Admin: 11/02/21 11:49 Dose: 1 lozenge Benztropine Mesylate (Benztropine Mesylate 1 Mg Tablet) 1 mg PO BID [facility] Last Admin: 11/02/21 08:10 Dose: 1 mg Benztropine Mesylate (Benztropine Mesylate 1 Mg Tablet) 1 mg PO BID PRN PRN Reason: Extrapyramidal Effects Bupropion HCl (Bupropion Hcl Xl 150 Mg Tab.Er.24h) 150 mg PO DAILY [facility] Last Admin: 11/02/21 08:10 Dose: 150 mg Clonazepam (Clonazepam 0.5 Mg Tablet) 0.5 mg PO BID [facility] Last Admin: 11/02/21 12:22 Dose: Not Given Clonidine HCl (Clonidine Hcl 0.1 Mg Tablet) 0.1 mg PO BID PRN; Protocol PRN Reason: anxiety Last Admin: 11/01/21 13:45 Dose: 0.1 mg Diphenhydramine HCl (Diphenhydramine Hcl 25 Mg Tablet) 50 mg PO Q4H PRN PRN Reason: agitation Divalproex Sodium (Divalproex Sodium Er 500 Mg Tab.Er.24h) 1,500 mg PO BEDTIME [facility] Last Admin: 11/01/21 21:55 Dose: 1,500 mg Gabapentin (Gabapentin 100 Mg Capsule) 100 mg PO BID [facility] Last Admin: 11/02/21 08:10 Dose: 100 mg Haloperidol (Haloperidol 5 Mg Tablet) 5 mg PO Q4H PRN PRN Reason: psychosis Last Admin: 11/01/21 12:18 Dose: 5 mg Haloperidol (Haloperidol 5 Mg Tablet) 5 mg PO BID [facility] Last Admin: 11/02/21 08:10 Dose: 5 mg Hydroxyzine HCl (Hydroxyzine Hcl 25 Mg Tablet) 25 mg PO Q6H PRN PRN Reason: Anxiety Last Admin: 11/02/21 09:50 Dose: 25 mg Magnesium Hydroxide (Milk Of Magnesia 30 Ml Oral.Susp) 30 ml PO DAILY PRN PRN Reason: Constipation Metformin HCl (Metformin Hcl 500 Mg Tablet) 500 mg PO BIDWM [facility] Last Admin: 11/02/21 08:10 Dose: 500 mg Nicotine Polacrilex (Nicotine Polacrilex 2 Mg Gum) 4 mg BUCCAL Q2H PRN PRN Reason: Nicotine Cravings Paliperidone Palmitate (Paliperidone Palmitate 156 Mg/Ml Syringe) 156 mg IM ONCE ONE Stop: 11/04/21 09:01 Propranolol HCl (Propranolol Hcl 10 Mg Tablet) 10 mg PO BEDTIME KATHERINE; Protocol Last Admin: 11/01/21 21:55 Dose: 10 mg Saliva Substitute (Dry Mouth [place] 60 Ml [place]) 1 spray MUCOUS MEM Q2H PRN PRN Reason: dry mouth Trazodone HCl (Trazodone Hcl 50 Mg Tablet) 50 mg PO BEDTIME PRN PRN Reason: Insomnia Last Admin: 10/18/21 00:08 Dose: 50 mg Allergies Allergies Allergy/AdvReac Type Severity Reaction Status Date / Time No Known Allergies Allergy Verified 10/15/21 19:21 Assessment & Plan Assessment & Plan (1) Bipolar disorder: Status: Acute Code(s): F31.9 - Bipolar disorder, unspecified Plan 26 yo male, hx of bipolar disorder, presents in transfer from [facility]. He had been i n intake with [facility] where he expressed SI. Reports medications do not work and he is looking to make changes. Asks about an SLATER and community Lynne guardianship. Reports intrusive thoughts of the devil and believes he may have caused the Holocaust. Hx of violent intrusive visual sx which are bothersome however pt reports no plan and worries how he will manage these when manic again. Discussed Invega trial with Olanzapine available during trial. Pt agrees. Plan: Invega 3 mg daily Discontinue Geodon Olanzapine prn Valproate Level, Lipids, A1c Titrate Valproate to therapeutic levels. Assessment and plan for 10/21/2021 Patient is case reviewed with treatment team patient with delusional thinking that he is evil somehow deserves to be punished. He denies active self-harm in this setting. He is agreeable to long-acting injectable. History of depression has been treated with antidepressants previously history of manic episodes. Continue Invega trial consider antidepressant augmentation assmt and plan for 10/22/21 Patient depressed flat somewhat psychomotor retarded. States he is feeling a little bit better seems less floridly preoccupied with psychotic delusions that he has a mass killer has been on antidepressants in the past if he broke through Depakote would consider lithium if he has never had a lithium trial could start Invega sustena Shortly 10/23/21 [facility] Father may be reached at [phone]. -Increase Invega to 9 mg daily. If tolerated, will plan Sustenna on 10/27 -Discontinue Olanzapine -Increase Valproate to 1500 mg daily -Haldol 5 mg HS and 5 mg prn psychotic agitation Benztropine 1 mg bid prn in addition to scheduled dosing. 10/24/21 Propranolol 5 mg bid to address akathesia sx (pt has had success in the past with this agent) 10/25/21 Gabapentin 100 mg bid Wellbutrin 75 mg bid 10/26/21 Invega Sustenna 234 mg IM 10/27 Decrease Invega to 3 mg daily Metformin 500 mg bid EKG, Valproate Level, CBCD, CMP 10/2710/27/21 Continue current regime Monitor for SE from SLATER 10/30/2021: No changes to current regimen 11/01/21 Orthostatic Vital Signs BID-sx of vertigo, dizziness Change Clonidine to prn Change Propranolol to 10 mg hs from 5 mg bid Change Wellbutrin to XL 150 mg a.m. Discontinue PO Invega Increase Haldol to 5 mg bid Sustenna due 11/04/21. 11/02/21 Klonopin 0.5 mg bid I spent minutes with the patient and/or on the patient floor today, greater than?50% of which was spent counseling/coordinating care. Patient educated on: medication risk/benefits and therapeutic strategies Informed Consent: understands and further education needed Reason for contiued inpatient stay Substantial Risk for: harm to self, inability to function and rapid decompensation
[2021-11-02 18:00] VITALS: BP 104/55; PULSE 80; TEMP 36.1; O2SAT 98
[2021-11-02 20:19] VITALS: BP 124/74; PULSE 84
[2021-11-02] MEDS: Divalproex Sodium ER 500 MG TAB.ER.24H 1500 MG PO (20:20)
[2021-11-02] MEDS: clonazePAM 0.5 MG TABLET PO (20:21)
[2021-11-02] MEDS: Propranolol HCL 10 MG TABLET PO (20:21)
[2021-11-03 06:00] VITALS: BP 106/64; BP 111/67; PULSE 74; PULSE 77; RESP 18; TEMP 36.3; O2SAT 98
[2021-11-03] MEDS: clonazePAM 0.5 MG TABLET PO ×2 (08:28→20:26)
[2021-11-03] MEDS: Gabapentin 100 MG CAPSULE PO ×2 (08:28→20:26)
[2021-11-03] MEDS: Benztropine Mesylate 1 MG TABLET PO ×2 (08:28→20:27)
[2021-11-03] MEDS: HaloperidoL 5 MG TABLET PO ×2 (08:28→20:27)
[2021-11-03] MEDS: buPROPion HCl XL 150 MG TAB.ER.24H PO (08:28)
[2021-11-03] MEDS: metFORMIN HCl 500 MG TABLET PO ×2 (08:28→17:23)
[2021-11-03 09:11] LABS: Creatinine Clr Calc Pharmacy 114.7; Estimated Glomerular Filt Rate > 60
[2021-11-03 14:59] VITALS: BP 117/67; PULSE 78
--- NOTE | 2021-11-03 15:27 | HO.PSYCHPN ---
Subjective Subjective Date of Service: 11/03/21 Reason For Visit: Bipolar Disorder Subjective Notes: Conditional Voluntary Healthcare Proxy: No Guardianship: No Medical Problems Affecting Mental Status: No Interim History: Per team pt telling them meds are not working. Reports when we meet a decrease of SI, a decrease of intrusive thoughts and a decrease of anxiety. Orthostasis reported. Pt referenced a discussion with parents, brother, and a manic episode which occurred in 2019 where he believes he lost many friends due to his behaviors when ill. Review of all medications as pt does feel overmedicated. Will decrease Gabapentin to 100 mg daily at hs and divide Depakote to 750 mg bid Medication Compliance: Yes Side effects from medications: Yes Attending Groups: Intermittent Review of Systems Acute medical concerns: No Medical Review of Systems: unchanged Review of Systems Psychiatric: Reports anxiety (improved) and Reports suicidal ideation (denies) Mental Status Exam Mental Status Exam Patient Appearance: Appropriate Patient Orientation: Person, Place, Time and Situation Level of Consciousness: Alert Patient Behavior: Talkative, Cooperative, Anxious, Distractible and Good Eye Contact Mood Description: Withdrawn, Anxious and Apprehensive Affect Description: Flat Patient Cognition Impaired: No Ability to Follow Directions: Good Speech Pattern: Spontaneous Speech Memory Description: Intact Hallucinations: None Perceptual Disturbances: Derealization Thought Process: Distracted and Rumination Thought Content: positive for Goal Oriented Depressive Symptoms: Increased Anxiety, Sleeping More Than Usual, Low Self Esteem and Loss of Energy Abnormal Motor Activity Signs and Symptoms: Restlessness Judgement: Fair Diagnostics Vital Signs (24Hr): Vital Signs - 24 hr 11/02/21 18:00 11/02/21 20:19 11/03/21 06:00 Temperature 96.9 F 97.4 F Pulse Rate 80 84 77 Respiratory Rate 18 Blood Pressure 104/55 L 124/74 111/67 Pulse Oximetry 98 98 Oxygen Delivery Method Room Air 11/03/21 06:00 11/03/21 14:59 Temperature Pulse Rate 74 78 Respiratory Rate Blood Pressure 106/64 117/67 Pulse Oximetry Oxygen Delivery Method BMI result Body Mass Index 30.3 Labs Results: 10/27/21 08:08 11/03/21 08:07 Labs: Laboratory Results - last 48 hr 11/03/21 08:07 Creatinine 1.08 Estim Creat Clear Calc 114.7 Estimated GFR > 60 Medications Medications Current Medications Acetaminophen (Acetaminophen 325 Mg Tablet) 650 mg PO Q6H PRN PRN Reason: Headache/Pain Mild Scale (1-3) Al Hydroxide/Mg Hydroxide (Magnesium Hydrox/Alum Hydrox 30 Ml Oral.Susp) 30 ml PO Q6H PRN PRN Reason: Heartburn/Nausea Benzocaine (Throat Lozenge, Medicated Lozenge) 1 lozenge MUCOUS MEM Q2H PRN PRN Reason: Sore Throat Last Admin: 11/02/21 11:49 Dose: 1 lozenge Benztropine Mesylate (Benztropine Mesylate 1 Mg Tablet) 1 mg PO BID [facility] Last Admin: 11/03/21 08:28 Dose: 1 mg Benztropine Mesylate (Benztropine Mesylate 1 Mg Tablet) 1 mg PO BID PRN PRN Reason: Extrapyramidal Effects Bupropion HCl (Bupropion Hcl Xl 150 Mg Tab.Er.24h) 150 mg PO DAILY [facility] Last Admin: 11/03/21 08:28 Dose: 150 mg Clonazepam (Clonazepam 0.5 Mg Tablet) 0.5 mg PO BID [facility] Last Admin: 11/03/21 08:28 Dose: 0.5 mg Clonidine HCl (Clonidine Hcl 0.1 Mg Tablet) 0.1 mg PO BID PRN; Protocol PRN Reason: anxiety Last Admin: 11/01/21 13:45 Dose: 0.1 mg Diphenhydramine HCl (Diphenhydramine Hcl 25 Mg Tablet) 50 mg PO Q4H PRN PRN Reason: agitation Divalproex Sodium (Divalproex Sodium 250 Mg Tablet.Dr) 750 mg PO BID [facility] Gabapentin (Gabapentin 100 Mg Capsule) 100 mg PO BEDTIME [facility] Haloperidol (Haloperidol 5 Mg Tablet) 5 mg PO Q4H PRN PRN Reason: psychosis Last Admin: 11/01/21 12:18 Dose: 5 mg Haloperidol (Haloperidol 5 Mg Tablet) 5 mg PO BID [facility] Last Admin: 11/03/21 08:28 Dose: 5 mg Hydroxyzine HCl (Hydroxyzine Hcl 25 Mg Tablet) 25 mg PO Q6H PRN PRN Reason: Anxiety Last Admin: 11/02/21 09:50 Dose: 25 mg Magnesium Hydroxide (Milk Of Magnesia 30 Ml Oral.Susp) 30 ml PO DAILY PRN PRN Reason: Constipation Metformin HCl (Metformin Hcl 500 Mg Tablet) 500 mg PO BIDWM [facility] Last Admin: 11/03/21 08:28 Dose: 500 mg Nicotine Polacrilex (Nicotine Polacrilex 2 Mg Gum) 4 mg BUCCAL Q2H PRN PRN Reason: Nicotine Cravings Patient Own Medication (Act Dry Mouth Lozenge) 1 lozenge PO TID PRN PRN Reason: dry mouth Paliperidone Palmitate (Paliperidone Palmitate 156 Mg/Ml Syringe) 156 mg IM ONCE ONE Stop: 11/04/21 09:01 Propranolol HCl (Propranolol Hcl 10 Mg Tablet) 10 mg PO BEDTIME [facility]; Protocol Last Admin: 11/02/21 20:21 Dose: 10 mg Saliva Substitute (Dry Mouth [place] 60 Ml [place]) 1 spray MUCOUS MEM Q2H PRN PRN Reason: dry mouth Trazodone HCl (Trazodone Hcl 50 Mg Tablet) 50 mg PO BEDTIME PRN PRN Reason: Insomnia Last Admin: 10/18/21 00:08 Dose: 50 mg Allergies Allergies Allergy/AdvReac Type Severity Reaction Status Date / Time No Known Allergies Allergy Verified 10/15/21 19:21 Assessment & Plan Assessment & Plan (1) Bipolar disorder: Status: Acute Code(s): F31.9 - Bipolar disorder, unspecified Plan 26 yo male, hx of bipolar disorder, presents in transfer from [facility]. He had been in intake with [facility] where he expressed SI. Reports medications do not work and he is looking to make changes. Asks about an SLATER and community [place] guardianship. Reports intrusive thoughts of the devil and believes he may have caused the Holocaust. Hx of violent intrusive visual sx which are bothersome however pt reports no plan and worries how he will manage these when manic again. Discussed Invega trial with Olanzapine available during trial. Pt agrees. Plan: Invega 3 mg daily Discontinue Geodon Olanzapine prn Valproate Level, Lipids, A1c Titrate Valproate to therapeutic levels. Assessment and plan for 10/21/2021 Patient is case reviewed with treatment team patient with delusional thinking that he is evil somehow deserves to be punished. He denies active self-harm in this setting. He is agreeable to long-acting injectable. History of depression has been treated with antidepressants previously history of manic episodes. Continue Invega trial consider antidepressant augmentation assmt and plan for 10/22/21 Patient depressed flat somewhat psychomotor retarded. States he is feeling a little bit better seems less floridly preoccupied with psychotic delusions that he has a mass killer has been on antidepressants in the past if he broke through Depakote would consider lithium if he has never had a lithium trial could start Invega sustena Shortly 10/23/21 Family meeting by phone and discussion with pt alis moses. Father may be reached at [phone]. -Increase Invega to 9 mg daily. If tolerated, will plan Sustenna on 10/27 -Discontinue Olanzapine -Increase Valproate to 1500 mg daily -Haldol 5 mg HS and 5 mg prn psychotic agitation Benztropine 1 mg bid prn in addition to scheduled dosing. 10/24/21 Propranolol 5 mg bid to address akathesia sx (pt has had success in the past with this agent) 10/25/21 Gabapentin 100 mg bid Wellbutrin 75 mg bid 10/26/21 Invega Sustenna 234 mg IM 10/27 Decrease Invega to 3 mg daily Metformin 500 mg bid EKG, Valproate Level, CBCD, CMP 10/2710/27/21 Continue current regime Monitor for SE from SLATER 10/30/2021: No changes to current regimen 11/01/21 Orthostatic Vital Signs BID-sx of vertigo, dizziness Change Clonidine to prn Change Propranolol to 10 mg hs from 5 mg bid Change Wellbutrin to XL 150 mg a.m. Discontinue PO Invega Increase Haldol to 5 mg bid Sustenna due 11/04/21. 11/03/21 Decrease Gabapentin to 100 mg hs Change Depakote to 750 mg bid I spent minutes with the patient and/or on the patient floor today, greater than?50% of which was spent counseling/coordinating care. Patient educated on: medication risk/benefits and therapeutic strategies Informed Consent: understands and further education needed Reason for contiued inpatient stay Substantial Risk for: inability to function and rapid decompensation
[2021-11-03 20:10] VITALS: BP 115/64; PULSE 86; TEMP 36.6; O2SAT 98
[2021-11-03] MEDS: Divalproex Sodium 250 MG TABLET.DR 750 MG PO (20:25)
[2021-11-03] MEDS: Propranolol HCL 10 MG TABLET PO (20:27)
[2021-11-04 06:00] VITALS: BP 118/64; PULSE 83; RESP 16; TEMP 36.5; O2SAT 98
[2021-11-04] MEDS: Benztropine Mesylate 1 MG TABLET PO ×2 (08:18→20:25)
[2021-11-04] MEDS: HaloperidoL 5 MG TABLET PO ×2 (08:18→20:25)
[2021-11-04] MEDS: Divalproex Sodium 250 MG TABLET.DR 750 MG PO ×2 (08:18→20:24)
[2021-11-04] MEDS: clonazePAM 0.5 MG TABLET PO ×2 (08:18→20:25)
[2021-11-04] MEDS: buPROPion HCl XL 150 MG TAB.ER.24H PO (08:18)
[2021-11-04] MEDS: metFORMIN HCl 500 MG TABLET PO ×2 (08:18→18:17)
--- NOTE | 2021-11-04 09:10 | HO.PSYCHPN ---
Subjective Subjective Date of Service: 11/04/21 Reason For Visit: Bipolar Disorder Interim History: Patient reports that he is feeling a little better. He says IM a little bit optimistic. He denies AVH; denies SI or HI. He says that he is not as much stressed. Patient agrees to 2nd Invega Sustenna shot today. Mental Status Exam Mental Status Exam Patient Appearance: Appropriate Patient Orientation: Person, Place, Time and Situation Level of Consciousness: Alert Patient Behavior: Cooperative and Good Eye Contact Mood Description: Calm Affect Description: Flat Patient Cognition Impaired: No Ability to Follow Directions: Good Speech Pattern: Clear and Spontaneous Speech Memory Description: Intact Hallucinations: None Thought Process: Intact Thought Content: positive for Goal Oriented (on treatment) Judgement: Fair Judgement and Insight: improved Diagnostics Vital Signs (24Hr): Vital Signs - 24 hr 11/03/21 14:59 11/03/21 20:10 11/04/21 06:00 Temperature 97.9 F 97.7 F Pulse Rate 78 86 83 Respiratory Rate 16 Blood Pressure 117/67 115/64 118/64 Pulse Oximetry 98 98 Oxygen Delivery Method Room Air BMI result Body Mass Index 30.3 Labs Results: 10/27/21 08:08 11/03/21 08:07 Labs: Laboratory Results - last 48 hr 11/03/21 08:07 Creatinine 1.08 Estim Creat Clear Calc 114.7 Estimated GFR > 60 Medications Medications Current Medications Acetaminophen (Acetaminophen 325 Mg Tablet) 650 mg PO Q6H PRN PRN Reason: Headache/Pain Mild Scale (1-3) Al Hydroxide/Mg Hydroxide (Magnesium Hydrox/Alum Hydrox 30 Ml Oral.Susp) 30 ml PO Q6H PRN PRN Reason: Heartburn/Nausea Benzocaine (Throat Lozenge, Medicated Lozenge) 1 lozenge MUCOUS MEM Q2H PRN PRN Reason: Sore Throat Last Admin: 11/02/21 11:49 Dose: 1 lozenge Benztropine Mesylate (Benztropine Mesylate 1 Mg Tablet) 1 mg PO BID [facility] Last Admin: 11/04/21 08:18 Dose: 1 mg Benztropine Mesylate (Benztropine Mesylate 1 Mg Tablet) 1 mg PO BID PRN PRN Reason: Extrapyramidal Effects Bupropion HCl (Bupropion Hcl Xl 150 Mg Tab.Er.24h) 150 mg PO DAILY [facility] Last Admin: 11/04/21 08:18 Dose: 150 mg Clonazepam (Clonazepam 0.5 Mg Tablet) 0.5 mg PO BID [facility] Last Admin: 11/04/21 08:18 Dose: 0.5 mg Clonidine HCl (Clonidine Hcl 0.1 Mg Tablet) 0.1 mg PO BID PRN; Protocol PRN Reason: anxiety Last Admin: 11/01/21 13:45 Dose: 0.1 mg Diphenhydramine HCl (Diphenhydramine Hcl 25 Mg Tablet) 50 mg PO Q4H PRN PRN Reason: agitation Divalproex Sodium (Divalproex Sodium 250 Mg Tablet.Dr) 750 mg PO BID [facility] Last Admin: 11/04/21 08:18 Dose: 750 mg Gabapentin (Gabapentin 100 Mg Capsule) 100 mg PO BEDTIME [facility] Last Admin: 11/03/21 20:26 Dose: 100 mg Haloperidol (Haloperidol 5 Mg Tablet) 5 mg PO Q4H PRN PRN Reason: psychosis Last Admin: 11/01/21 12:18 Dose: 5 mg Haloperidol (Haloperidol 5 Mg Tablet) 5 mg PO BID [facility] Last Admin: 11/04/21 08:18 Dose: 5 mg Hydroxyzine HCl (Hydroxyzine Hcl 25 Mg Tablet) 25 mg PO Q6H PRN PRN Reason: Anxiety Last Admin: 11/02/21 09:50 Dose: 25 mg Magnesium Hydroxide (Milk Of Magnesia 30 Ml Oral.Susp) 30 ml PO DAILY PRN PRN Reason: Constipation Metformin HCl (Metformin Hcl 500 Mg Tablet) 500 mg PO BIDWM [facility] Last Admin: 11/04/21 08:18 Dose: 500 mg Nicotine Polacrilex (Nicotine Polacrilex 2 Mg Gum) 4 mg BUCCAL Q2H PRN PRN Reason: Nicotine Cravings Patient Own Medication (Act Dry Mouth Lozenge) 1 lozenge PO TID PRN PRN Reason: dry mouth Propranolol HCl (Propranolol Hcl 10 Mg Tablet) 10 mg PO BEDTIME [facility]; Protocol Last Admin: 11/03/21 20:27 Dose: 10 mg Saliva Substitute (Dry Mouth [place] 60 Ml [place]) 1 spray MUCOUS MEM Q2H PRN PRN Reason: dry mouth Trazodone HCl (Trazodone Hcl 50 Mg Tablet) 50 mg PO BEDTIME PRN PRN Reason: Insomnia Last Admin: 10/18/21 00:08 Dose: 50 mg Allergies Allergies Allergy/AdvReac Type Severity Reaction Status Date / Time No Known Allergies Allergy Verified 10/15/21 19:21 Assessment & Plan Assessment & Plan (1) Bipolar disorder: Status: Acute Code(s): F31.9 - Bipolar disorder, unspecified Plan 26 yo male, hx of bipolar disorder, presents in transfer from [facility]. He had been in intake with [facility] where he expressed SI. Reports medications do not work and he is looking to make changes. Asks about an SLATER and community Lyn[place] guardianship. Reports intrusive thoughts of the devil and believes he may have caused the Holocaust. Hx of violent intrusive visual sx which are bothersome however pt reports no plan and worries how he will manage these when manic again. Discussed Invega trial with Olanzapine available during trial. Pt agrees. Plan: Invega 3 mg daily Discontinue Geodon Olanzapine prn Valproate Level, Lipids, A1c Titrate Valproate to therapeutic levels. Assessment and plan for 10/21/2021 Patient is case reviewed with treatment team patient with delusional thinking that he is evil somehow deserves to be punished. He denies active self-harm in this setting. He is agreeable to long-acting injectable. History of depression has been treated with antidepressants previously history of manic episodes. Continue Invega trial consider antidepressant augmentation assmt and plan for 10/22/21 Patient depressed flat somewhat psychomotor retarded. States he is feeling a little bit better seems less floridly preoccupied with psychotic delusions that he has a mass killer has been on antidepressants in the past if he broke through Depakote would consider lithium if he has never had a lithium trial could start Invega sustena Shortly 10/23/21 Family meeting by phone and discussion with pt re [facility]. Father may be reached at [phone]. -Increase Invega to 9 mg daily. If tolerated, will plan Sustenna on 10/27 -Discontinue Olanzapine -Increase Valproate to 1500 mg daily -Haldol 5 mg HS and 5 mg prn psychotic agitation Benztropine 1 mg bid prn in addition to scheduled dosing. 10/24/21 Propranolol 5 mg bid to address akathesia sx (pt has had success in the past with this agent) 10/25/21 Gabapentin 100 mg bid Wellbutrin 75 mg bid 10/26/21 Invega Sustenna 234 mg IM 10/27 Decrease Invega to 3 mg daily Metformin 500 mg bid EKG, Valproate Level, CBCD, CMP 10/2710/27/21 Continue current regime Monitor for SE from SLATER 10/30/2021: No changes to current regimen 11/01/21 Orthostatic Vital Signs BID-sx of vertigo, dizziness Change Clonidine to prn Change Propranolol to 10 mg hs from 5 mg bid Change Wellbutrin to XL 150 mg a.m. Discontinue PO Invega Increase Haldol to 5 mg bid Sustenna due 11/04/21. 11/03/21 Decrease Gabapentin to 100 mg hs Change Depakote to 750 mg bid 11/04 no changes made to current treatment plan Received Invega Sustenna 156 mg IM I spent minutes with the patient and/or on the patient floor today, greater than?50% of which was spent counseling/coordinating care. Patient educated on: diagnosis and medication risk/benefits Informed Consent: understands Reason for contiued inpatient stay Substantial Risk for: med/psych decompensation
[2021-11-04] MEDS: Paliperidone Palmitate 156 MG/ML SYRINGE IM (13:10)
[2021-11-04 18:00] VITALS: BP 130/68; RESP 14
[2021-11-04] MEDS: Gabapentin 100 MG CAPSULE PO (20:25)
[2021-11-04] MEDS: Propranolol HCL 10 MG TABLET PO (20:25)
[2021-11-05 06:00] VITALS: BP 121/67; PULSE 76; RESP 16; TEMP 36.6; O2SAT 98
[2021-11-05] MEDS: HaloperidoL 5 MG TABLET PO ×2 (08:36→20:26)
[2021-11-05] MEDS: clonazePAM 0.5 MG TABLET PO ×2 (08:36→20:25)
[2021-11-05] MEDS: buPROPion HCl XL 150 MG TAB.ER.24H PO (08:37)
[2021-11-05] MEDS: metFORMIN HCl 500 MG TABLET PO ×2 (08:37→18:19)
[2021-11-05] MEDS: Divalproex Sodium 250 MG TABLET.DR 750 MG PO (08:37)
[2021-11-05] MEDS: Benztropine Mesylate 1 MG TABLET PO ×2 (08:37→20:26)
--- NOTE | 2021-11-05 15:07 | P.PNPSI_ITS ---
Subjective Subjective Date of Service: 11/05/21 Reason For Visit: Bipolar Disorder Interim History: Patient continues to report that he is overall feeling better. He got his 2nd shot of Invega Sustenna yesterday without issue. Staff reports that he went to 2 groups yesterday as well. Patient denies any AVH. He did say it is difficult to swallow Depakote pill and like the idea of switching to Depakote Sprinkles. Mental Status Exam Mental Status Exam Patient Appearance: Appropriate Patient Orientation: Person, Place, Time and Situation Level of Consciousness: Alert Patient Behavior: Cooperative and Good Eye Contact Mood Description: Calm Affect Description: Flat Patient Cognition Impaired: No Ability to Follow Directions: Good Speech Pattern: Clear and Spontaneous Speech Memory Description: Intact Hallucinations: None Thought Process: Intact Thought Content: positive for Goal Oriented (on treatment) Judgement: Fair Judgement and Insight: improved Diagnostics Vital Signs (24Hr): Vital Signs - 24 hr 11/04/21 18:00 11/05/21 06:00 Temperature 97.9 F Pulse Rate 76 Respiratory Rate 14 16 Blood Pressure 130/68 121/67 Pulse Oximetry 98 BMI result Body Mass Index 30.3 Labs Results: 10/27/21 08:08 11/03/21 08:07 Medications Medications Current Medications Acetaminophen (Acetaminophen 325 Mg Tablet) 650 mg PO Q6H PRN PRN Reason: Headache/Pain Mild Scale (1-3) Al Hydroxide/Mg Hydroxide (Magnesium Hydrox/Alum Hydrox 30 Ml Oral.Susp) 30 ml PO Q6H PRN PRN Reason: Heartburn/Nausea Benzocaine (Throat Lozenge, Medicated Lozenge) 1 lozenge MUCOUS MEM Q2H PRN PRN Reason: Sore Throat Last Admin: 11/02/21 11:49 Dose: 1 lozenge Benztropine Mesylate (Benztropine Mesylate 1 Mg Tablet) 1 mg PO BID [facility] Last Admin: 11/05/21 08:37 Dose: 1 mg Benztropine Mesylate (Benztropine Mesylate 1 Mg Tablet) 1 mg PO BID PRN PRN Reason: Extrapyramidal Effects Bupropion HCl (Bupropion Hcl Xl 150 Mg Tab.Er.24h) 150 mg PO DAILY [facility] Last Admin: 11/05/21 08:37 Dose: 150 mg Clonazepam (Clonazepam 0.5 Mg Tablet) 0.5 mg PO BID [facility] Last Admin: 11/05/21 08:36 Dose: 0.5 mg Clonidine HCl (Clonidine Hcl 0.1 Mg Tablet) 0.1 mg PO BID PRN; Protocol PRN Reason: anxiety Last Admin: 11/01/21 13:45 Dose: 0.1 mg Diphenhydramine HCl (Diphenhydramine Hcl 25 Mg Tablet) 50 mg PO Q4H PRN PRN Reason: agitation Divalproex Sodium (Divalproex Sodium Sprinkles 125 Mg ) 750 mg PO BID [facility] Gabapentin (Gabapentin 100 Mg Capsule) 100 mg PO BEDTIME [facility] Last Admin: 11/04/21 20:25 Dose: 100 mg Haloperidol (Haloperidol 5 Mg Tablet) 5 mg PO Q4H PRN PRN Reason: psychosis Last Admin: 11/01/21 12:18 Dose: 5 mg Haloperidol (Haloperidol 5 Mg Tablet) 5 mg PO BID [facility] Last Admin: 11/05/21 08:36 Dose: 5 mg Hydroxyzine HCl (Hydroxyzine Hcl 25 Mg Tablet) 25 mg PO Q6H PRN PRN Reason: Anxiety Last Admin: 11/02/21 09:50 Dose: 25 mg Magnesium Hydroxide (Milk Of Magnesia 30 Ml Oral.Susp) 30 ml PO DAILY PRN PRN Reason: Constipation Metformin HCl (Metformin Hcl 500 Mg Tablet) 500 mg PO BIDWM [facility] Last Admin: 11/05/21 08:37 Dose: 500 mg Nicotine Polacrilex (Nicotine Polacrilex 2 Mg Gum) 4 mg BUCCAL Q2H PRN PRN Reason: Nicotine Cravings Patient Own Medication (Act Dry Mouth Lozenge) 1 lozenge PO TID PRN PRN Reason: dry mouth Propranolol HCl (Propranolol Hcl 10 Mg Tablet) 10 mg PO BEDTIME [facility]; Protocol Last Admin: 11/04/21 20:25 Dose: 10 mg Saliva Substitute (Dry Mouth [place] 60 Ml [place]) 1 spray MUCOUS MEM Q2H PRN PRN Reason: dry mouth Trazodone HCl (Trazodone Hcl 50 Mg Tablet) 50 mg PO BEDTIME PRN PRN Reason: Insomnia Last Admin: 10/18/21 00:08 Dose: 50 mg Allergies Allergies Allergy/AdvReac Type Severity Reaction Status Date / Time No Known Allergies Allergy Verified 10/15/21 19:21 Assessment & Plan Assessment & Plan (1) Bipolar disorder: Status: Acute Code(s): F31.9 - Bipolar disorder, unspecified Plan 26 yo male, hx of bipolar disorder, presents in transfer from [facility]. He had been in intake with [facility] where he expressed SI. Reports medications do not work and he is looking to make changes. Asks about an SLATER and community Lyn[place] guardianship. Reports intrusive thoughts of the devil and believes he may have caused the Holocaust. Hx of violent intrusive visual sx which are bothersome however pt reports no plan and worries how he will manage these when manic again. Discussed Invega trial with Olanzapine available during trial. Pt agrees. Plan: Invega 3 mg daily Discontinue Geodon Olanzapine prn Valproate Level, Lipids, A1c Titrate Valproate to therapeutic levels. Assessment and plan for 10/21/2021 Patient is case reviewed with treatment team patient with delusional thinking that he is evil somehow deserves to be punished. He denies active self-harm in this setting. He is agreeable to long-acting injectable. History of depression has been treated with antidepressants previously history of manic episodes. Continue Invega trial consider antidepressant augmentation assmt and plan for 10/22/21 Patient depressed flat somewhat psychomotor retarded. States he is feeling a little bit better seems less floridly preoccupied with psychotic delusions that he has a mass killer has been on antidepressants in the past if he broke through Depakote would consider lithium if he has never had a lithium trial could start Invega sustena Shortly 10/23/21 Family meeting by phone and discussion with pt re meds. Father may be reached at [phone]. -Increase Invega to 9 mg daily. If tolerated, will plan Sustenna on 10/27 -Discontinue Olanzapine -Increase Valproate to 1500 mg daily -Haldol 5 mg HS and 5 mg prn psychotic agitation Benztropine 1 mg bid prn in addition to scheduled dosing. 10/24/21 Propranolol 5 mg bid to address akathesia sx (pt has had success in the past with this agent) 10/25/21 Gabapentin 100 mg bid Wellbutrin 75 mg bid 10/26/21 Invega Sustenna 234 mg IM 10/27 Decrease Invega to 3 mg daily Metformin 500 mg bid EKG, Valproate Level, CBCD, CMP 10/2710/27/21 Continue current regime Monitor for SE from SLATER 10/30/2021: No changes to current regimen 11/01/21 Orthostatic Vital Signs BID-sx of vertigo, dizziness Change Clonidine to prn Change Propranolol to 10 mg hs from 5 mg bid Change Wellbutrin to XL 150 mg a.m. Discontinue PO Invega Increase Haldol to 5 mg bid Sustenna due 11/04/21. 11/03/21 Decrease Gabapentin to 100 mg hs Change Depakote to 750 mg bid 11/04 no changes made to current treatment plan Received Invega Sustenna 156 mg IM 11/05 changed to Depakote Sprinkles since some trouble swallowing pill form I spent minutes with the patient and/or on the patient floor today, greater than?50% of which was spent counseling/coordinating care. Patient educated on: medication risk/benefits Informed Consent: understands Reason for contiued inpatient stay Substantial Risk for: med/psych decompensation
[2021-11-05] MEDS: Milk of Magnesia 30 ML ORAL.SUSP PO (15:53)
[2021-11-05 18:00] VITALS: BP 128/78; PULSE 72; RESP 14
[2021-11-05] MEDS: Divalproex Sodium Sprinkles 125 MG CAP.DR.SPR 750 MG PO (20:25)
[2021-11-05] MEDS: Gabapentin 100 MG CAPSULE PO (20:25)
[2021-11-05] MEDS: Propranolol HCL 10 MG TABLET PO (20:26)
[2021-11-06 06:00] VITALS: BP 107/53; PULSE 59; RESP 16; TEMP 36.3; O2SAT 99
[2021-11-06] MEDS: HaloperidoL 5 MG TABLET PO (08:29)
[2021-11-06] MEDS: clonazePAM 0.5 MG TABLET PO ×2 (08:29→20:09)
[2021-11-06] MEDS: Benztropine Mesylate 1 MG TABLET PO ×2 (08:29→20:09)
[2021-11-06] MEDS: Divalproex Sodium Sprinkles 125 MG CAP.DR.SPR 750 MG PO (08:29)
[2021-11-06] MEDS: buPROPion HCl XL 150 MG TAB.ER.24H PO (08:29)
[2021-11-06] MEDS: metFORMIN HCl 500 MG TABLET PO ×2 (08:29→16:35)
--- NOTE | 2021-11-06 15:51 | P.PNPSI_ITS ---
Subjective Subjective Date of Service: 11/06/21 Reason For Visit: Bipolar Disorder Subjective Notes: Conditional Voluntary Healthcare Proxy: No Guardianship: No Medical Problems Affecting Mental Status: No Interim History: Pt changed to Depakote Sprinkles over the weekend as he reported difficulty in swallowing Depakote ER. Reported to team feeling tired, overmedicated with anxious sx and depressive sx. Review of regime-tapering decisions initiated. Medication Compliance: Yes Side effects from medications: Yes (tired feeling) Attending Groups: Intermittent Review of Systems Acute medical concerns: No Medical Review of Systems: unchanged Review of Systems Psychiatric: Reports anxiety, Reports depression, Reports paranoia (decrease in intrusive thoughts and paranoia he reports) and Reports suicidal ideation (denies) Mental Status Exam Mental Status Exam Patient Appearance: Appropriate Patient Orientation: Person, Place, Time and Situation Level of Consciousness: Drowsy Patient Behavior: Appropriate, Talkative, Cooperative and Good Eye Contact Mood Description: Flat Affect Description: Flat Patient Cognition Impaired: No Ability to Follow Directions: Good Speech Pattern: Spontaneous Speech Memory Description: Episodic Impaired Hallucinations: None Delusions: Not Present Thought Process: Rumination Thought Content: positive for Suicidal Ideation (denies) Depressive Symptoms: Diff. Making Decisions, Sleeping More Than Usual and Difficulty Concentrating Judgement: Fair Diagnostics Vital Signs (24Hr): Vital Signs - 24 hr 11/05/21 18:00 11/06/21 06:00 Temperature 97.4 F Pulse Rate 72 59 Respiratory Rate 14 16 Blood Pressure 128/78 107/53 L Pulse Oximetry 99 BMI result Body Mass Index 30.3 Labs Results: 10/27/21 08:08 11/03/21 08:07 Medications Medications Current Medications Acetaminophen (Acetaminophen 325 Mg Tablet) 650 mg PO Q6H PRN PRN Reason: Headache/Pain Mild Scale (1-3) Al Hydroxide/Mg Hydroxide (Magnesium Hydrox/Alum Hydrox 30 Ml Oral.Susp) 30 ml PO Q6H PRN PRN Reason: Heartburn/Nausea Benzocaine (Throat Lozenge, Medicated Lozenge) 1 lozenge MUCOUS MEM Q2H PRN PRN Reason: Sore Throat Last Admin: 11/02/21 11:49 Dose: 1 lozenge Benztropine Mesylate (Benztropine Mesylate 1 Mg Tablet) 1 mg PO BID [facility] Last Admin: 11/06/21 08:29 Dose: 1 mg Benztropine Mesylate (Benztropine Mesylate 1 Mg Tablet) 1 mg PO BID PRN PRN Reason: Extrapyramidal Effects Bupropion HCl (Bupropion Hcl Xl 150 Mg Tab.Er.24h) 150 mg PO DAILY [facility] Last Admin: 11/06/21 08:29 Dose: 150 mg Clonazepam (Clonazepam 0.5 Mg Tablet) 0.5 mg PO BID [facility] Last Admin: 11/06/21 08:29 Dose: 0.5 mg Clonidine HCl (Clonidine Hcl 0.1 Mg Tablet) 0.1 mg PO BID PRN; Protocol PRN Reason: anxiety Last Admin: 11/01/21 13:45 Dose: 0.1 mg Diphenhydramine HCl (Diphenhydramine Hcl 25 Mg Tablet) 50 mg PO Q4H PRN PRN Reason: agitation Divalproex Sodium (Divalproex Sodium 250 Mg Tablet.Dr) 750 mg PO BID [facility] Haloperidol (Haloperidol 5 Mg Tablet) 5 mg PO Q4H PRN PRN Reason: psychosis Last Admin: 11/01/21 12:18 Dose: 5 mg Haloperidol (Haloperidol 0.5 Mg Tablet) 2.5 mg PO BID [facility] Hydroxyzine HCl (Hydroxyzine Hcl 25 Mg Tablet) 25 mg PO Q6H PRN PRN Reason: Anxiety Last Admin: 11/02/21 09:50 Dose: 25 mg Magnesium Hydroxide (Milk Of Magnesia 30 Ml Oral.Susp) 30 ml PO DAILY PRN PRN Reason: Constipation Last Admin: 11/05/21 15:53 Dose: 30 ml Metformin HCl (Metformin Hcl 500 Mg Tablet) 500 mg PO BIDWM [facility]INE Last Admin: 11/06/21 08:29 Dose: 500 mg Nicotine Polacrilex (Nicotine Polacrilex 2 Mg Gum) 4 mg BUCCAL Q2H PRN PRN Reason: Nicotine Cravings Patient Own Medication (Act Dry Mouth Lozenge) 1 lozenge PO TID PRN PRN Reason: dry mouth Propranolol HCl (Propranolol Hcl 10 Mg Tablet) 5 mg PO BEDTIME [facility]; Protocol Saliva Substitute (Dry Mouth [place] 60 Ml [place]) 1 spray MUCOUS MEM Q2H PRN PRN Reason: dry mouth Trazodone HCl (Trazodone Hcl 50 Mg Tablet) 50 mg PO BEDTIME PRN PRN Reason: Insomnia Last Admin: 10/18/21 00:08 Dose: 50 mg Allergies Allergies Allergy/AdvReac Type Severity Reaction Status Date / Time No Known Allergies Allergy Verified 10/15/21 19:21 Assessment & Plan Assessment & Plan (1) Bipolar disorder: Status: Acute Code(s): F31.9 - Bipolar disorder, unspecified Plan 26 yo male, hx of bipolar disorder, presents in transfer from [facility]. He had been in intake with [facility] where he expressed SI. Reports medications do not work and he is looking to make changes. Asks about an SLATER and community Lyn[place] guardianship. Reports intrusive thoughts of the devil and believes he may have caused the Holocaust. Hx of violent intrusive visual sx which are bothersome however pt reports no plan and worries how he will manage these when manic again. Discussed Invega trial with Olanzapine available during trial. Pt agrees. Plan: Invega 3 mg daily Discontinue Geodon Olanzapine prn Valproate Level, Lipids, A1c Titrate Valproate to therapeutic levels. Assessment and plan for 10/21/2021 Patient is case reviewed with treatment team patient with delusional thinking that he is evil somehow deserves to be punished. He denies active self-harm in this setting. He is agreeable to long-acting injectable. History of depression has been treated with antidepressants previously history of manic episodes. Continue Invega trial consider antidepressant augmentation assmt and plan for 10/22/21 Patient depressed flat somewhat psychomotor retarded. States he is feeling a little bit better seems less floridly preoccupied with psychotic delusions that he has a mass killer has been on antidepressants in the past if he broke through Depakote would consider lithium if he has never had a lithium trial could start Invega sustena Shortly 10/23/21 Family meeting by phone and discussion with pt re [facility]. Father may be reached at [phone]. -Increase Invega to 9 mg daily. If tolerated, will plan Sustenna on 10/27 -Discontinue Olanzapine -Increase Valproate to 1500 mg daily -Haldol 5 mg HS and 5 mg prn psychotic agitation Benztropine 1 mg bid prn in addition to scheduled dosing. 10/24/21 Propranolol 5 mg bid to address akathesia sx (pt has had success in the past with this agent) 10/25/21 Gabapentin 100 mg bid Wellbutrin 75 mg bid 10/26/21 Invega Sustenna 234 mg IM 10/27 Decrease Invega to 3 mg daily Metformin 500 mg bid EKG, Valproate Level, CBCD, CMP 10/2710/27/21 Continue current regime Monitor for SE from SLATER 10/30/2021: No changes to current regimen 11/01/21 Orthostatic Vital Signs BID-sx of vertigo, dizziness Change Clonidine to prn Change Propranolol to 10 mg hs from 5 mg bid Change Wellbutrin to XL 150 mg a.m. Discontinue PO Invega Increase Haldol to 5 mg bid Sustenna due 11/04/21. 11/03/21 Decrease Gabapentin to 100 mg hs Change Depakote to 750 mg bid 11/04 no changes made to current treatment plan Received Invega Sustenna 156 mg IM 11/05 changed to Depakote Sprinkles since some trouble swallowing pill form 11/06/21: Reports a decrease in intrusive thoughts, decrease in SI, however with sedation, depressive and anxious sx. Tolerated second Invega IM without adverse event on 11/04. Plan: Decrease Haldol to 2.5 mg bid Decrease Propranolol to 5 mg HS Discontinue Gabapentin I spent minutes with the patient and/or on the patient floor today, greater than?50% of which was spent counseling/coordinating care. Patient educated on: medication risk/benefits and therapeutic strategies Informed Consent: understands and further education needed Reason for contiued inpatient stay Substantial Risk for: harm to self, inability to function and rapid decompensation
[2021-11-06 20:00] VITALS: BP 123/59; PULSE 87
[2021-11-06] MEDS: HaloperidoL 0.5 MG TABLET 2.5 MG PO (20:09)
[2021-11-06] MEDS: Divalproex Sodium 250 MG TABLET.DR 750 MG PO (20:09)
[2021-11-06] MEDS: Propranolol HCL 10 MG TABLET 5 MG PO (20:09)
[2021-11-07 06:00] VITALS: BP 102/68; PULSE 60; RESP 16; TEMP 36.1; O2SAT 99
[2021-11-07] MEDS: Divalproex Sodium 250 MG TABLET.DR 750 MG PO ×2 (09:25→21:07)
[2021-11-07] MEDS: Benztropine Mesylate 1 MG TABLET PO ×2 (09:25→21:07)
[2021-11-07] MEDS: metFORMIN HCl 500 MG TABLET PO ×2 (09:25→16:29)
[2021-11-07] MEDS: clonazePAM 0.5 MG TABLET PO ×2 (09:25→21:08)
[2021-11-07] MEDS: buPROPion HCl XL 150 MG TAB.ER.24H PO (09:25)
[2021-11-07] MEDS: HaloperidoL 0.5 MG TABLET 2.5 MG PO ×2 (09:25→21:06)
--- NOTE | 2021-11-07 12:28 | HO.PSYCHPN ---
Subjective Subjective Date of Service: 11/07/21 Reason For Visit: Bipolar Disorder Subjective Notes: Conditional Voluntary Healthcare Proxy: No Guardianship: No Medical Problems Affecting Mental Status: No Interim History: Reports that he is not feeling overmedicated, is not feeling restless, can sit calmly, does feel tired, but is able to sleep-sleeps late however has no alarm set. States he is thinking he does not want respite, but possibly PHP. Wanting to get a routine together for the beginning of classes in Dec. Attending groups, appears more attentive today. Discussed what supports he will need upon discharge-discussed a medication locked box, VNA and pt is discussing possibly needing a prison situation. Discussed concern about taking medications regularly, and being able to provide care for himself. Medication Compliance: Yes Side effects from medications: No Attending Groups: Yes Review of Systems Acute medical concerns: No Medical Review of Systems: unchanged Review of Systems Psychiatric: Reports anxiety, Reports depression and Reports suicidal ideation (denies) Mental Status Exam Mental Status Exam Patient Appearance: Appropriate Patient Orientation: Person, Place, Time and Situation Level of Consciousness: Drowsy Patient Behavior: Appropriate, Talkative, Cooperative and Good Eye Contact Mood Description: Flat Affect Description: Flat Patient Cognition Impaired: No Ability to Follow Directions: Good Speech Pattern: Spontaneous Speech Memory Description: Episodic Impaired Hallucinations: None Delusions: Not Present Thought Process: Rumination Thought Content: positive for Suicidal Ideation (denies) Depressive Symptoms: Diff. Making Decisions, Sleeping More Than Usual and Difficulty Concentrating Judgement: Fair Diagnostics Vital Signs (24Hr): Vital Signs - 24 hr 11/06/21 20:00 11/07/21 06:00 Temperature 96.9 F Pulse Rate 87 60 Respiratory Rate 16 Blood Pressure 123/59 L 102/68 Pulse Oximetry 99 Oxygen Delivery Method Room Air BMI result Body Mass Index 30.3 Labs Results: 10/27/21 08:08 11/03/21 08:07 Medications Medications Current Medications Acetaminophen (Acetaminophen 325 Mg Tablet) 650 mg PO Q6H PRN PRN Reason: Headache/Pain Mild Scale (1-3) Al Hydroxide/Mg Hydroxide (Magnesium Hydrox/Alum Hydrox 30 Ml Oral.Susp) 30 ml PO Q6H PRN PRN Reason: Heartburn/Nausea Benzocaine (Throat Lozenge, Medicated Lozenge) 1 lozenge MUCOUS MEM Q2H PRN PRN Reason: Sore Throat Last Admin: 11/02/21 11:49 Dose: 1 lozenge Benztropine Mesylate (Benztropine Mesylate 1 Mg Tablet) 1 mg PO BID [facility] Last Admin: 11/07/21 09:25 Dose: 1 mg Benztropine Mesylate (Benztropine Mesylate 1 Mg Tablet) 1 mg PO BID PRN PRN Reason: Extrapyramidal Effects Bupropion HCl (Bupropion Hcl Xl 150 Mg Tab.Er.24h) 150 mg PO DAILY [facility] Last Admin: 11/07/21 09:25 Dose: 150 mg Clonazepam (Clonazepam 0.5 Mg Tablet) 0.5 mg PO BID [facility] Last Admin: 11/07/21 09:25 Dose: 0.5 mg Clonidine HCl (Clonidine Hcl 0.1 Mg Tablet) 0.1 mg PO BID PRN; Protocol PRN Reason: anxiety Last Admin: 11/01/21 13:45 Dose: 0.1 mg Diphenhydramine HCl (Diphenhydramine Hcl 25 Mg Tablet) 50 mg PO Q4H PRN PRN Reason: agitation Divalproex Sodium (Divalproex Sodium 250 Mg Tablet.Dr) 750 mg PO BID [facility] Last Admin: 11/07/21 09:25 Dose: 750 mg Haloperidol (Haloperidol 5 Mg Tablet) 5 mg PO Q4H PRN PRN Reason: psychosis Last Admin: 11/01/21 12:18 Dose: 5 mg Haloperidol (Haloperidol 0.5 Mg Tablet) 2.5 mg PO BID [facility] Last Admin: 11/07/21 09:25 Dose: 2.5 mg Hydroxyzine HCl (Hydroxyzine Hcl 25 Mg Tablet) 25 mg PO Q6H PRN PRN Reason: Anxiety Last Admin: 11/02/21 09:50 Dose: 25 mg Magnesium Hydroxide (Milk Of Magnesia 30 Ml Oral.Susp) 30 ml PO DAILY PRN PRN Reason: Constipation Last Admin: 11/05/21 15:53 Dose: 30 ml Metformin HCl (Metformin Hcl 500 Mg Tablet) 500 mg PO BIDWM [facility] Last Admin: 11/07/21 09:25 Dose: 500 mg Nicotine Polacrilex (Nicotine Polacrilex 2 Mg Gum) 4 mg BUCCAL Q2H PRN PRN Reason: Nicotine Cravings Patient Own Medication (Act Dry Mouth Lozenge) 1 lozenge PO TID PRN PRN Reason: dry mouth Propranolol HCl (Propranolol Hcl 10 Mg Tablet) 5 mg PO BEDTIME [facility]; Protocol Last Admin: 11/06/21 20:09 Dose: 5 mg Saliva Substitute (Dry Mouth [place] 60 Ml [place]) 1 spray MUCOUS MEM Q2H PRN PRN Reason: dry mouth Trazodone HCl (Trazodone Hcl 50 Mg Tablet) 50 mg PO BEDTIME PRN PRN Reason: Insomnia Last Admin: 10/18/21 00:08 Dose: 50 mg Allergies Allergies Allergy/AdvReac Type Severity Reaction Status Date / Time No Known Allergies Allergy Verified 10/15/21 19:21 Assessment & Plan Assessment & Plan (1) Bipolar disorder: Status: Acute Code(s): F31.9 - Bipolar disorder, unspecified Plan 26 yo male, hx of bipolar disorder, presents in transfer from [facility]. He had been in intake with [facility] [place] where he expressed SI. Reports medications do not work and he is looking to make changes. Asks about an SLATER and community Lyn[place] guardianship. Reports intrusive thoughts of the devil and believes he may have caused the Holocaust. Hx of violent intrusive visual sx which are bothersome however pt reports no plan and worries how he will manage these when manic again. Discussed Invega trial with Olanzapine available during trial. Pt agrees. Plan: Invega 3 mg daily Discontinue Geodon Olanzapine prn Valproate Level, Lipids, A1c Titrate Valproate to therapeutic levels. Assessment and plan for 10/21/2021 Patient is case reviewed with treatment team patient with delusional thinking that he is evil somehow deserves to be punished. He denies active self-harm in this setting. He is agreeable to long-acting injectable. History of depression has been treated with antidepressants previously history of manic episodes. Continue Invega trial consider antidepressant augmentation assmt and plan for 10/22/21 Patient depressed flat somewhat psychomotor retarded. States he is feeling a little bit better seems less floridly preoccupied with psychotic delusions that he has a mass killer has been on antidepressants in the past if he broke through Depakote would consider lithium if he has never had a lithium trial could start Invega sustena Shortly 10/23/21 Family meeting by phone and discussion with pt re meds. Father may be reached at [phone]. -Increase Invega to 9 mg daily. If tolerated, will plan Sustenna on 10/27 -Discontinue Olanzapine -Increase Valproate to 1500 mg daily -Haldol 5 mg HS and 5 mg prn psychotic agitation Benztropine 1 mg bid prn in addition to scheduled dosing. 10/24/21 Propranolol 5 mg bid to address akathesia sx (pt has had success in the past with this agent) 10/25/21 Gabapentin 100 mg bid Wellbutrin 75 mg bid 10/26/21 Invega Sustenna 234 mg IM 10/27 Decrease Invega to 3 mg daily Metformin 500 mg bid EKG, Valproate Level, CBCD, CMP 10/2710/27/21 Continue current regime Monitor for SE from SLATER 10/30/2021: No changes to current regimen 11/01/21 Orthostatic Vital Signs BID-sx of vertigo, dizziness Change Clonidine to prn Change Propranolol to 10 mg hs from 5 mg bid Change Wellbutrin to XL 150 mg a.m. Discontinue PO Invega Increase Haldol to 5 mg bid Sustenna due 11/04/21. 11/03/21 Decrease Gabapentin to 100 mg hs Change Depakote to 750 mg bid 11/04 no changes made to current treatment plan Received Invega Sustenna 156 mg IM 11/05 changed to Depakote Sprinkles since some trouble swallowing pill form 11/07/21 Continue current regime. I spent minutes with the patient and/or on the patient floor today, greater than?50% of which was spent counseling/coordinating care. Patient educated on: medication risk/benefits and therapeutic strategies Informed Consent: understands and further education needed Reason for contiued inpatient stay Substantial Risk for: inability to function and rapid decompensation
[2021-11-07 18:00] VITALS: BP 131/82; PULSE 101; RESP 16; TEMP 36.8; O2SAT 99
[2021-11-07] MEDS: Propranolol HCL 10 MG TABLET 5 MG PO (21:05)
[2021-11-08 06:12] VITALS: BP 127/75; PULSE 92; TEMP 36.6
[2021-11-08] MEDS: metFORMIN HCl 500 MG TABLET PO ×2 (09:04→17:28)
[2021-11-08] MEDS: clonazePAM 0.5 MG TABLET PO ×2 (09:04→21:19)
[2021-11-08] MEDS: Divalproex Sodium 250 MG TABLET.DR 750 MG PO ×2 (09:05→21:19)
[2021-11-08] MEDS: buPROPion HCl XL 150 MG TAB.ER.24H PO (09:05)
[2021-11-08] MEDS: Benztropine Mesylate 1 MG TABLET PO ×2 (09:05→21:19)
[2021-11-08] MEDS: HaloperidoL 0.5 MG TABLET 2.5 MG PO (09:13)
--- NOTE | 2021-11-08 13:14 | P.PNPSI_ITS ---
Subjective Subjective Date of Service: 11/08/21 Reason For Visit: Bipolar Disorder Subjective Notes: Conditional Voluntary Healthcare Proxy: No Guardianship: No Medical Problems Affecting Mental Status: No Interim History: Regime review-Reports ongoing sedation-will discontinue Propranolol, decrease Haldol to 2.5 mg hs. Pt learned today that [facility] has transitioned his service area from [place] to [facility]. [facility] referral in process along with PHP referral. Discussed Strattera-currently not on formulary, will need to order when beginning in out patient. Medication Compliance: Yes Side effects from medications: Yes (sedation) Attending Groups: Intermittent Review of Systems Acute medical concerns: No Medical Review of Systems: unchanged Review of Systems Psychiatric: Reports anxiety, Reports depression and Reports suicidal ideation (denies) Mental Status Exam Mental Status Exam Patient Appearance: Appropriate Patient Orientation: Person, Place, Time and Situation Level of Consciousness: Drowsy Patient Behavior: Appropriate, Talkative, Cooperative and Good Eye Contact Mood Description: Flat Affect Description: Flat Patient Cognition Impaired: No Ability to Follow Directions: Good Speech Pattern: Spontaneous Speech Memory Description: Episodic Impaired Hallucinations: None Delusions: Not Present Thought Process: Rumination Thought Content: positive for Suicidal Ideation (denies) Depressive Symptoms: Diff. Making Decisions, Sleeping More Than Usual and Difficulty Concentrating Judgement: Fair Diagnostics Vital Signs (24Hr): Vital Signs - 24 hr 11/07/21 18:00 11/08/21 06:12 Temperature 98.2 F 97.9 F Pulse Rate 101 H 92 Respiratory Rate 16 Blood Pressure 131/82 127/75 Pulse Oximetry 99 Oxygen Delivery Method Room Air BMI result Body Mass Index 30.3 Labs Results: 10/27/21 08:08 11/03/21 08:07 Medications Medications Current Medications Acetaminophen (Acetaminophen 325 Mg Tablet) 650 mg PO Q6H PRN PRN Reason: Headache/Pain Mild Scale (1-3) Al Hydroxide/Mg Hydroxide (Magnesium Hydrox/Alum Hydrox 30 Ml Oral.Susp) 30 ml PO Q6H PRN PRN Reason: Heartburn/Nausea Benzocaine (Throat Lozenge, Medicated Lozenge) 1 lozenge MUCOUS MEM Q2H PRN PRN Reason: Sore Throat Last Admin: 11/02/21 11:49 Dose: 1 lozenge Benztropine Mesylate (Benztropine Mesylate 1 Mg Tablet) 1 mg PO BID [facility] Last Admin: 11/08/21 09:05 Dose: 1 mg Benztropine Mesylate (Benztropine Mesylate 1 Mg Tablet) 1 mg PO BID PRN PRN Reason: Extrapyramidal Effects Bupropion HCl (Bupropion Hcl Xl 150 Mg Tab.Er.24h) 150 mg PO DAILY [facility] Last Admin: 11/08/21 09:05 Dose: 150 mg Clonazepam (Clonazepam 0.5 Mg Tablet) 0.5 mg PO BID [facility] Last Admin: 11/08/21 09:04 Dose: 0.5 mg Clonidine HCl (Clonidine Hcl 0.1 Mg Tablet) 0.1 mg PO BID PRN; Protocol PRN Reason: anxiety Last Admin: 11/01/21 13:45 Dose: 0.1 mg Diphenhydramine HCl (Diphenhydramine Hcl 25 Mg Tablet) 50 mg PO Q4H PRN PRN Reason: agitation Divalproex Sodium (Divalproex Sodium 250 Mg Tablet.Dr) 750 mg PO BID [facility] Last Admin: 11/08/21 09:05 Dose: 750 mg Haloperidol (Haloperidol 5 Mg Tablet) 5 mg PO Q4H PRN PRN Reason: psychosis Last Admin: 11/01/21 12:18 Dose: 5 mg Haloperidol (Haloperidol 0.5 Mg Tablet) 2.5 mg PO BID [facility] Last Admin: 11/08/21 09:13 Dose: 2.5 mg Hydroxyzine HCl (Hydroxyzine Hcl 25 Mg Tablet) 25 mg PO Q6H PRN PRN Reason: Anxiety Last Admin: 11/02/21 09:50 Dose: 25 mg Magnesium Hydroxide (Milk Of Magnesia 30 Ml Oral.Susp) 30 ml PO DAILY PRN PRN Reason: Constipation Last Admin: 11/05/21 15:53 Dose: 30 ml Metformin HCl (Metformin Hcl 500 Mg Tablet) 500 mg PO BIDWM [facility] Last Admin: 11/08/21 09:04 Dose: 500 mg Nicotine Polacrilex (Nicotine Polacrilex 2 Mg Gum) 4 mg BUCCAL Q2H PRN PRN Reason: Nicotine Cravings Patient Own Medication (Act Dry Mouth Lozenge) 1 lozenge PO TID PRN PRN Reason: dry mouth Propranolol HCl (Propranolol Hcl 10 Mg Tablet) 5 mg PO BEDTIME [facility]; Protocol Last Admin: 11/07/21 21:05 Dose: 5 mg Saliva Substitute (Dry Mouth [place] 60 Ml [place]) 1 spray MUCOUS MEM Q2H PRN PRN Reason: dry mouth Trazodone HCl (Trazodone Hcl 50 Mg Tablet) 50 mg PO BEDTIME PRN PRN Reason: Insomnia Last Admin: 10/18/21 00:08 Dose: 50 mg Allergies Allergies Allergy/AdvReac Type Severity Reaction Status Date / Time No Known Allergies Allergy Verified 10/15/21 19:21 Assessment & Plan Assessment & Plan (1) Bipolar disorder: Status: Acute Code(s): F31.9 - Bipolar disorder, unspecified Plan 26 yo male, hx of bipolar disorder, presents in transfer from [facility]. He had been in intake with [facility] where he expressed SI. Reports medications do not work and he is looking to make changes. Asks about an SLATER and community Lynne guardianship. Reports intrusive thoughts of the devil and believes he may have caused the Holocaust. Hx of violent intrusive visual sx which are bothersome however pt reports no plan and worries how he will manage these when manic again. Discussed Invega trial with Olanzapine available during trial. Pt agrees. Plan: Invega 3 mg daily Discontinue Geodon Olanzapine prn Valproate Level, Lipids, A1c Titrate Valproate to therapeutic levels. Assessment and plan for 10/21/2021 Patient is case reviewed with treatment team patient with delusional thinking that he is evil somehow deserves to be punished. He denies active self-harm in this setting. He is agreeable to long-acting injectable. History of depression has been treated with antidepressants previously history of manic episodes. Continue Invega trial consider antidepressant augmentation assmt and plan for 10/22/21 Patient depressed flat somewhat psychomotor retarded. States he is feeling a little bit better seems less floridly preoccupied with psychotic delusions that he has a mass killer has been on antidepressants in the past if he broke through Depakote would consider lithium if he has never had a lithium trial could start Invega sustena Shortly 10/23/21 Family meeting by phone and discussion with pt re meds. Father may be reached at [phone]. -Increase Invega to 9 mg daily. If tolerated, will plan Sustenna on 10/27 -Discontinue Olanzapine -Increase Valproate to 1500 mg daily -Haldol 5 mg HS and 5 mg prn psychotic agitation Benztropine 1 mg bid prn in addition to scheduled dosing. 10/24/21 Propranolol 5 mg bid to address akathesia sx (pt has had success in the past with this agent) 10/25/21 Gabapentin 100 mg bid Wellbutrin 75 mg bid 10/26/21 Invega Sustenna 234 mg IM 10/27 Decrease Invega to 3 mg daily Metformin 500 mg bid EKG, Valproate Level, CBCD, CMP 10/2710/27/21 Continue current regime Monitor for SE from SLATER 10/30/2021: No changes to current regimen 11/01/21 Orthostatic Vital Signs BID-sx of vertigo, dizziness Change Clonidine to prn Change Propranolol to 10 mg hs from 5 mg bid Change Wellbutrin to XL 150 mg a.m. Discontinue PO Invega Increase Haldol to 5 mg bid Sustenna due 11/04/21. 11/03/21 Decrease Gabapentin to 100 mg hs Change Depakote to 750 mg bid 11/04 no changes made to current treatment plan Received Invega Sustenna 156 mg IM 11/05 changed to Depakote Sprinkles since some trouble swallowing pill form 11/07/21 Continue current regime. 11/08/21 Discontinue Propranolol Decrease Haldol to 2.5 mg HS Discharge 11/10/21. I spent minutes with the patient and/or on the patient floor today, greater than?50% of which was spent counseling/coordinating care. Patient educated on: medication risk/benefits and therapeutic strategies Informed Consent: understands and further education needed Reason for contiued inpatient stay Substantial Risk for: inability to function and rapid decompensation
[2021-11-08 21:15] VITALS: BP 128/84; PULSE 98; TEMP 36.2; O2SAT 97
[2021-11-08] MEDS: HaloperidoL 5 MG TABLET 2.5 MG PO (21:19)
[2021-11-09 07:00] VITALS: BMI 30.2
[2021-11-09 08:30] VITALS: BP 103/66; PULSE 61; TEMP 36.6
[2021-11-09] MEDS: Divalproex Sodium 250 MG TABLET.DR 750 MG PO ×2 (09:03→20:56)
[2021-11-09] MEDS: clonazePAM 0.5 MG TABLET PO ×2 (09:03→20:57)
[2021-11-09] MEDS: metFORMIN HCl 500 MG TABLET PO ×2 (09:03→16:06)
[2021-11-09] MEDS: buPROPion HCl XL 150 MG TAB.ER.24H PO (09:03)
[2021-11-09] MEDS: Benztropine Mesylate 1 MG TABLET PO ×2 (09:03→20:56)
--- NOTE | 2021-11-09 16:10 | P.PNPSI_ITS ---
Subjective Subjective Date of Service: 11/09/21 Reason For Visit: Bipolar Disorder Subjective Notes: Conditional Voluntary Healthcare Proxy: No Guardianship: No Medical Problems Affecting Mental Status: No Interim History: Denies SI, denies intrusive thoughts. Reports to team that meds make him tired. Reports today that this sx is improving with recent changes. Discussed medication support-VNA, locked med box Discussed discharge concerns-pt has none currently. Will get labs on 11/10 Discussed Klonopin dosing-pt asks to leave at 0.5 mg bid Call from pt's mother to review medications and plan of care. Mother is considering flying up on 11/11 to pick pt up directly and may ask that he remain one more day. She discussed [place] [facility] and asks that this be a final resource for pt as family would like to attempt to have him as independent as possible. Medication Compliance: Yes Side effects from medications: Yes (sedation has decreased) Attending Groups: Intermittent Review of Systems Acute medical concerns: No Medical Review of Systems: unchanged Review of Systems Psychiatric: Reports no additional psychiatric complaints Mental Status Exam Mental Status Exam Patient Appearance: Appropriate Patient Orientation: Person, Place, Time and Situation Level of Consciousness: Alert Patient Behavior: Appropriate, Talkative and Good Eye Contact Mood Description: Constricted Affect Description: Constricted Patient Cognition Impaired: No Ability to Follow Directions: Good Speech Pattern: Spontaneous Speech Memory Description: Intact Hallucinations: None Delusions: Not Present Thought Process: Intact and Goal Oriented Thought Content: positive for Intact, positive for Goal Oriented, positive for Suicidal Ideation (denies) and positive for Homicidal Ideation (denies) Depressive Symptoms: Thoughts of /Suicide (denies) Judgement: Fair Diagnostics Vital Signs (24Hr): Vital Signs - 24 hr 11/08/21 21:15 11/09/21 08:30 Temperature 97.2 F 98 F Pulse Rate 98 61 Blood Pressure 128/84 103/66 Pulse Oximetry 97 Oxygen Delivery Method Room Air BMI result Body Mass Index 30.2 Labs Results: 10/27/21 08:08 11/03/21 08:07 Medications Medications Current Medications Acetaminophen (Acetaminophen 325 Mg Tablet) 650 mg PO Q6H PRN PRN Reason: Headache/Pain Mild Scale (1-3) Al Hydroxide/Mg Hydroxide (Magnesium Hydrox/Alum Hydrox 30 Ml Oral.Susp) 30 ml PO Q6H PRN PRN Reason: Heartburn/Nausea Benzocaine (Throat Lozenge, Medicated Lozenge) 1 lozenge MUCOUS MEM Q2H PRN PRN Reason: Sore Throat Last Admin: 11/02/21 11:49 Dose: 1 lozenge Benztropine Mesylate (Benztropine Mesylate 1 Mg Tablet) 1 mg PO BID [facility] Last Admin: 11/09/21 09:03 Dose: 1 mg Benztropine Mesylate (Benztropine Mesylate 1 Mg Tablet) 1 mg PO BID PRN PRN Reason: Extrapyramidal Effects Bupropion HCl (Bupropion Hcl Xl 150 Mg Tab.Er.24h) 150 mg PO DAILY [facility] Last Admin: 11/09/21 09:03 Dose: 150 mg Clonazepam (Clonazepam 0.5 Mg Tablet) 0.5 mg PO BID [facility] Last Admin: 11/09/21 09:03 Dose: 0.5 mg Clonidine HCl (Clonidine Hcl 0.1 Mg Tablet) 0.1 mg PO BID PRN; Protocol PRN Reason: anxiety Last Admin: 11/01/21 13:45 Dose: 0.1 mg Diphenhydramine HCl (Diphenhydramine Hcl 25 Mg Tablet) 50 mg PO Q4H PRN PRN Reason: agitation Divalproex Sodium (Divalproex Sodium 250 Mg Tablet.Dr) 750 mg PO BID [facility] Last Admin: 11/09/21 09:03 Dose: 750 mg Haloperidol (Haloperidol 5 Mg Tablet) 5 mg PO Q4H PRN PRN Reason: psychosis Last Admin: 11/01/21 12:18 Dose: 5 mg Haloperidol (Haloperidol 5 Mg Tablet) 2.5 mg PO BEDTIME [facility] Last Admin: 11/08/21 21:19 Dose: 2.5 mg Hydroxyzine HCl (Hydroxyzine Hcl 25 Mg Tablet) 25 mg PO Q6H PRN PRN Reason: Anxiety Last Admin: 11/02/21 09:50 Dose: 25 mg Magnesium Hydroxide (Milk Of Magnesia 30 Ml Oral.Susp) 30 ml PO DAILY PRN PRN Reason: Constipation Last Admin: 11/05/21 15:53 Dose: 30 ml Metformin HCl (Metformin Hcl 500 Mg Tablet) 500 mg PO BIDWM [facility] Last Admin: 11/09/21 16:06 Dose: 500 mg Nicotine Polacrilex (Nicotine Polacrilex 2 Mg Gum) 4 mg BUCCAL Q2H PRN PRN Reason: Nicotine Cravings Patient Own Medication (Act Dry Mouth Lozenge) 1 lozenge PO TID PRN PRN Reason: dry mouth Last Admin: 11/09/21 16:06 Dose: 1 lozenge Saliva Substitute (Dry Mouth Sunol 60 Ml Sunol) 1 spray MUCOUS MEM Q2H PRN PRN Reason: dry mouth Trazodone HCl (Trazodone Hcl 50 Mg Tablet) 50 mg PO BEDTIME PRN PRN Reason: Insomnia Last Admin: 10/18/21 00:08 Dose: 50 mg Allergies Allergies Allergy/AdvReac Type Severity Reaction Status Date / Time No Known Allergies Allergy Verified 10/15/21 19:21 Assessment & Plan Assessment & Plan (1) Bipolar disorder: Status: Acute Code(s): F31.9 - Bipolar disorder, unspecified Plan 26 yo male, hx of bipolar disorder, presents in transfer from [facility]. He had been in intake with [facility] where he expressed SI. Reports medications do not work and he is looking to make changes. Asks about an SLATER and community Lynne guardianship. Reports intrusive thoughts of the devil and believes he may have caused the Holocaust. Hx of violent intrusive visual sx which are bothersome however pt reports no plan and worries how he will manage these when manic again. Discussed Invega trial with Olanzapine available during trial. Pt agrees. Plan: Invega 3 mg daily Discontinue Geodon Olanzapine prn Valproate Level, Lipids, A1c Titrate Valproate to therapeutic levels. Assessment and plan for 10/21/2021 Patient is case reviewed with treatment team patient with delusional thinking that he is evil somehow deserves to be punished. He denies active self-harm in this setting. He is agreeable to long-acting injectable. History of depression has been treated with antidepressants previously history of manic episodes. Continue Invega trial consider antidepressant augmentation assmt and plan for 10/22/21 Patient depressed flat somewhat psychomotor retarded. States he is feeling a little bit better seems less floridly preoccupied with psychotic delusions that he has a mass killer has been on antidepressants in the past if he broke through Depakote would consider lithium if he has never had a lithium trial could start Invega sustena Shortly 10/23/21 Family meeting by phone and discussion with pt re meds. Father may be reached at [phone]. -Increase Invega to 9 mg daily. If tolerated, will plan Sustenna on 10/27 -Discontinue Olanzapine -Increase Valproate to 1500 mg daily -Haldol 5 mg HS and 5 mg prn psychotic agitation Benztropine 1 mg bid prn in addition to scheduled dosing. 10/24/21 Propranolol 5 mg bid to address akathesia sx (pt has had success in the past with this agent) 10/25/21 Gabapentin 100 mg bid Wellbutrin 75 mg bid 10/26/21 Invega Sustenna 234 mg IM 10/27 Decrease Invega to 3 mg daily Metformin 500 mg bid EKG, Valproate Level, CBCD, CMP 10/2710/27/21 Continue current regime Monitor for SE from SLATER 10/30/2021: No changes to current regimen 11/01/21 Orthostatic Vital Signs BID-sx of vertigo, dizziness Change Clonidine to prn Change Propranolol to 10 mg hs from 5 mg bid Change Wellbutrin to XL 150 mg a.m. Discontinue PO Invega Increase Haldol to 5 mg bid Sustenna due 11/04/21. 11/03/21 Decrease Gabapentin to 100 mg hs Change Depakote to 750 mg bid 11/04 no changes made to current treatment plan Received Invega Sustenna 156 mg IM 11/05 changed to Depakote Sprinkles since some trouble swallowing pill form 11/07/21 Continue current regime. 11/09/21 Continue current regime Discharge planning for 11/10 or 11/11. I spent minutes with the patient and/or on the patient floor today, greater than?50% of which was spent counseling/coordinating care. Patient educated on: medication risk/benefits and therapeutic strategies Informed Consent: understands and further education needed Reason for contiued inpatient stay Substantial Risk for: inability to function and rapid decompensation
[2021-11-09 18:00] VITALS: BP 121/87; PULSE 85
[2021-11-09] MEDS: HaloperidoL 5 MG TABLET 2.5 MG PO (20:57)
[2021-11-10 06:00] VITALS: BP 122/72; PULSE 96; RESP 16; TEMP 36.6; O2SAT 99
[2021-11-10 08:16] LABS: MANUAL DIFF FLAG NO
[2021-11-10 08:19] LABS: Basophils Percent Auto 0.3 % (0-2); Eosinophils Absolute Auto 0.1 X10*3/uL (0.0-0.4); Eosinophils Percent Auto 1.8 % (0-4); Hematocrit 47.3 % (42.0-52.0); Hemoglobin 15.7 g/dl (14.0-18.0); Imm Gran Abs Auto 0.05 X10*3/uL (0.00-0.03); Imm Gran Pct Auto 0.7 % (0.0-0.4); Lymphocytes Absolute Auto 1.9 X10*3/uL (1.2-4.9); Lymphocytes Percent Auto 27.8 % (20-40); Mean Corpuscular HGB Conc 33.2 g/dl (31.0-36.0); Mean Corpuscular Hemoglobin 30.1 pg (27.0-33.0); Mean Corpuscular Volume 90.8 fL (80.0-98.0); Mean Platelet Volume 11.5 fL (9.4-12.4); Monocytes Percent Auto 14.9 % (2-11); Neutrophils Absolute Auto 3.7 x10*3/uL (2.0-8.3); Neutrophils Percent Auto 54.5 % (45-73); Platelet Count 196 X10*3/uL (160-400); Red Blood Count 5.21 X10*6/uL (4.60-5.80); Red Cell Distribution Width 13.7 % (11.0-16.0); White Blood Count 6.7 X10*3/uL (4.8-10.8)
[2021-11-10 08:30] LABS: Estimated Average Glucose 103 mg/dL; Hemoglobin A1c % 5.2 %
[2021-11-10 08:48] LABS: Alanine Aminotransferase 18 U/L (0-40); Albumin Level 4.2 g/dL (3.5-5.0); Alkaline Phosphatase 57 U/L (39-117); Anion Gap 13 (12-20); Aspartate Amino Transferase 14 U/L (5-37); Bilirubin Total 0.4 mg/dL (0.0-1.0); Blood Urea Nitrogen 16 mg/dL (9-16); Calcium 9.3 mg/dL (8.4-10.2); Carbon Dioxide 28 mmol/L (22-29); Chloride 103 mmol/L (96-108); Cholesterol 113 mg/dL; Estimated Glomerular Filt Rate > 60; Glucose Random 85 mg/dL (60-115); HDL Cholesterol 24 mg/dL; LDL Cholesterol Calculated 74 mg/dl; Potassium 4.6 mmol/L (3.3-5.1); Sodium 139 mmol/L (135-145); Total Protein 7.4 g/dL (6.5-8.0); Triglycerides 79 mg/dL
[2021-11-10 08:50] LABS: Valproate 76.2 mcg/mL (50.0-100.0)
[2021-11-10 08:58] LABS: Thyroid Stimulating Hormone 3.05 uIU/mL (0.32-4.0)
[2021-11-10] MEDS: Benztropine Mesylate 1 MG TABLET PO ×2 (09:01→18:34)
[2021-11-10] MEDS: buPROPion HCl XL 150 MG TAB.ER.24H PO (09:01)
[2021-11-10] MEDS: metFORMIN HCl 500 MG TABLET PO ×2 (09:01→16:47)
[2021-11-10] MEDS: clonazePAM 0.5 MG TABLET PO ×2 (09:01→18:35)
[2021-11-10] MEDS: Divalproex Sodium 250 MG TABLET.DR 750 MG PO ×2 (09:01→18:34)
--- NOTE | 2021-11-10 13:53 | HO.PSYCHPN ---
Subjective Subjective Reason For Visit: Bipolar Disorder Diagnostics Vital Signs (24Hr): Vital Signs - 24 hr 11/09/21 18:00 11/10/21 06:00 Temperature 97.9 F Pulse Rate 85 96 Respiratory Rate 16 Blood Pressure 121/87 122/72 Pulse Oximetry 99 BMI result Body Mass Index 30.2 Labs Results: 11/10/21 08:05 11/10/21 08:05 Labs: Laboratory Results - last 48 hr 11/10/21 11/10/21 11/10/21 08:05 08:05 08:05 WBC 6.7 RBC 5.21 Hgb 15.7 Hct 47.3 MCV 90.8 MCH 30.1 MCHC 33.2 RDW 13.7 Plt Count 196 MPV 11.5 Immature Gran % (Auto) 0.7 H Neut % (Auto) 54.5 Lymph % (Auto) 27.8 [place] % (Auto) 14.9 H Eos % (Auto) 1.8 Baso % (Auto) 0.3 Lymph # (Auto) 1.9 [place] # (Auto) 1.0 Eos # (Auto) 0.1 Baso # (Auto) 0.0 Abs Immat Gran (auto) 0.05 H Absolute Neuts (auto) 3.7 Absolute Nucleated RBC 0.000 Nucleated RBC % (auto) 0.0 Sodium 139 Potassium 4.6 Chloride 103 Carbon Dioxide 28 Anion Gap 13 BUN 16 D Creatinine 1.04 Estim Creat Clear Calc 119.0 Estimated GFR > 60 Random Glucose 85 Estimat Average Glucose Hemoglobin A1c % Calcium 9.3 Total Bilirubin 0.4 AST 14 ALT 18 Alkaline Phosphatase 57 Total Protein 7.4 Albumin 4.2 Triglycerides 79 Cholesterol 113 LDL Cholesterol, Calc 74 HDL Cholesterol 24 TSH 3.05 Valproic Acid 76.2 11/10/21 11/10/21 08:05 08:05 WBC RBC Hgb Hct MCV MCH MCHC RDW Plt Count MPV Immature Gran % (Auto) Neut % (Auto) Lymph % (Auto) [place] % (Auto) Eos % (Auto) Baso % (Auto) Lymph # (Auto) [place] # (Auto) Eos # (Auto) Baso # (Auto) Abs Immat Gran (auto) Absolute Neuts (auto) Absolute Nucleated RBC Nucleated RBC % (auto) Sodium Potassium Chloride Carbon Dioxide Anion Gap BUN Creatinine Cancelled Estim Creat Clear Calc Cancelled Estimated GFR Cancelled Random Glucose Estimat Average Glucose 103 Hemoglobin A1c % 5.2 Calcium Total Bilirubin AST ALT Alkaline Phosphatase Total Protein Albumin Triglycerides Cholesterol LDL Cholesterol, Calc HDL Cholesterol TSH Valproic Acid Medications Medications Current Medications Acetaminophen (Acetaminophen 325 Mg Tablet) 650 mg PO Q6H PRN PRN Reason: Headache/Pain Mild Scale (1-3) Al Hydroxide/Mg Hydroxide (Magnesium Hydrox/Alum Hydrox 30 Ml Oral.Susp) 30 ml PO Q6H PRN PRN Reason: Heartburn/Nausea Benzocaine (Throat Lozenge, Medicated Lozenge) 1 lozenge MUCOUS MEM Q2H PRN PRN Reason: Sore Throat Last Admin: 11/02/21 11:49 Dose: 1 lozenge Benztropine Mesylate (Benztropine Mesylate 1 Mg Tablet) 1 mg PO BID [facility] Last Admin: 11/10/21 09:01 Dose: 1 mg Benztropine Mesylate (Benztropine Mesylate 1 Mg Tablet) 1 mg PO BID PRN PRN Reason: Extrapyramidal Effects Bupropion HCl (Bupropion Hcl Xl 150 Mg Tab.Er.24h) 150 mg PO DAILY [facility] Last Admin: 11/10/21 09:01 Dose: 150 mg Clonazepam (Clonazepam 0.5 Mg Tablet) 0.5 mg PO BID [facility] Last Admin: 11/10/21 09:01 Dose: 0.5 mg Clonidine HCl (Clonidine Hcl 0.1 Mg Tablet) 0.1 mg PO BID PRN; Protocol PRN Reason: anxiety Last Admin: 11/01/21 13:45 Dose: 0.1 mg Diphenhydramine HCl (Diphenhydramine Hcl 25 Mg Tablet) 50 mg PO Q4H PRN PRN Reason: agitation Divalproex Sodium (Divalproex Sodium 250 Mg Tablet.Dr) 750 mg PO BID [facility] Last Admin: 11/10/21 09:01 Dose: 750 mg Haloperidol (Haloperidol 5 Mg Tablet) 5 mg PO Q4H PRN PRN Reason: psychosis Last Admin: 11/01/21 12:18 Dose: 5 mg Haloperidol (Haloperidol 5 Mg Tablet) 2.5 mg PO BEDTIME [facility] Last Admin: 11/09/21 20:57 Dose: 2.5 mg Hydroxyzine HCl (Hydroxyzine Hcl 25 Mg Tablet) 25 mg PO Q6H PRN PRN Reason: Anxiety Last Admin: 11/02/21 09:50 Dose: 25 mg Magnesium Hydroxide (Milk Of Magnesia 30 Ml Oral.Susp) 30 ml PO DAILY PRN PRN Reason: Constipation Last Admin: 11/05/21 15:53 Dose: 30 ml Metformin HCl (Metformin Hcl 500 Mg Tablet) 500 mg PO BIDWM [facility] Last Admin: 11/10/21 09:01 Dose: 500 mg Nicotine Polacrilex (Nicotine Polacrilex 2 Mg Gum) 4 mg BUCCAL Q2H PRN PRN Reason: Nicotine Cravings Patient Own Medication (Act Dry Mouth Lozenge) 1 lozenge PO TID PRN PRN Reason: dry mouth Last Admin: 11/09/21 16:06 Dose: 1 lozenge Saliva Substitute (Dry Mouth Zebulon 60 Ml Zebulon) 1 spray MUCOUS MEM Q2H PRN PRN Reason: dry mouth Trazodone HCl (Trazodone Hcl 50 Mg Tablet) 50 mg PO BEDTIME PRN PRN Reason: Insomnia Last Admin: 10/18/21 00:08 Dose: 50 mg Allergies Allergies Allergy/AdvReac Type Severity Reaction Status Date / Time No Known Allergies Allergy Verified 10/15/21 19:21 Assessment & Plan Assessment & Plan (1) Bipolar disorder: Status: Acute Code(s): F31.9 - Bipolar disorder, unspecified Plan 26 yo male, hx of bipolar disorder, presents in transfer from [facility]. He had been in intake with [facility] where he expressed SI. Reports medications do not work and he is looking to make changes. Asks about an SLATER and community Lynne guardianship. Reports intrusive thoughts of the devil and believes he may have caused the Holocaust. Hx of violent intrusive visual sx which are bothersome however pt reports no plan and worries how he will manage these when manic again. Discussed Invega trial with Olanzapine available during trial. Pt agrees. Plan: Invega 3 mg daily Discontinue Geodon Olanzapine prn Valproate Level, Lipids, A1c Titrate Valproate to therapeutic levels. Assessment and plan for 10/21/2021 Patient is case reviewed with treatment team patient with delusional thinking that he is evil somehow deserves to be punished. He denies active self-harm in this setting. He is agreeable to long-acting injectable. History of depression has been treated with antidepressants previously history of manic episodes. Continue Invega trial consider antidepressant augmentation assmt and plan for 10/22/21 Patient depressed flat somewhat psychomotor retarded. States he is feeling a little bit better seems less floridly preoccupied with psychotic delusions that he has a mass killer has been on antidepressants in the past if he broke through Depakote would consider lithium if he has never had a lithium trial could start Invega sustena Shortly 10/23/21 Family meeting by phone and discussion with pt re [facility]. Father may be reached at [phone]. -Increase Invega to 9 mg daily. If tolerated, will plan Sustenna on 10/27 -Discontinue Olanzapine -Increase Valproate to 1500 mg daily -Haldol 5 mg HS and 5 mg prn psychotic agitation Benztropine 1 mg bid prn in addition to scheduled dosing. 10/24/21 Propranolol 5 mg bid to address akathesia sx (pt has had success in the past with this agent) 10/25/21 Gabapentin 100 mg bid Wellbutrin 75 mg bid 10/26/21 Invega Sustenna 234 mg IM 10/27 Decrease Invega to 3 mg daily Metformin 500 mg bid EKG, Valproate Level, CBCD, CMP 10/2710/27/21 Continue current regime Monitor for SE from SLATER 10/30/2021: No changes to current regimen 11/01/21 Orthostatic Vital Signs BID-sx of vertigo, dizziness Change Clonidine to prn Change Propranolol to 10 mg hs from 5 mg bid Change Wellbutrin to XL 150 mg a.m. Discontinue PO Invega Increase Haldol to 5 mg bid Sustenna due 11/04/21. 11/03/21 Decrease Gabapentin to 100 mg hs Change Depakote to 750 mg bid 11/04 no changes made to current treatment plan Received Invega Sustenna 156 mg IM 11/05 changed to Depakote Sprinkles since some trouble swallowing pill form 11/07/21 Continue current regime. 11/09/21 Continue current regime Discharge planning for 11/10 or 11/11. I spent minutes with the patient and/or on the patient floor today, greater than?50% of which was spent counseling/coordinating care.
--- NOTE | 2021-11-10 17:13 | PM.PSYDC ---
DS: Providers Provider Date of Service: 11/10/21 Date of admission: 10/15/21 18:44 Date of discharge: 11/10/21 Primary care physician: Nonstaff Physician Admitting clinician: Kristal Fields Attending physician on admission: Sumit Severino Consults: 10/15/21 22:03 Consult to Hospitalist Routine Consulting Provider: Hospitalist Reason For Exam: admission physical Attending physician on discharge: Sumit Severino Discharging clinician: Kristal Fields DS: Diagnosis Discharge Diagnosis (1) Bipolar disorder: Status: Acute DS: Medications Discharge Medications Home Medications: Home Medications Medication Instructions Recorded Confirmed albuterol sulfate 0.63 mg/3 mL 0.63 mg inhalation Q4-6H PRN sob 10/15/21 10/15/21 solution for nebulization Previous Rx's Medication Instructions Recorded benztropine 1 mg tablet 1 mg PO BID PRN Extrapyramidal 11/09/21 Effects #60 tabs bupropion HCl 150 mg 24 hr tablet, 150 mg PO DAILY #30 tabs 11/09/21 extended release clonazepam 0.5 mg tablet (Klonopin) 0.25 mg PO BID #30 tabs 11/09/21 divalproex 250 mg tablet,delayed 750 mg PO BID #180 tabs 11/09/21 release haloperidol 5 mg tablet 2.5 mg PO BID PRN agitation #30 11/09/21 tabs metformin 500 mg tablet 500 mg PO BIDWM #60 tabs 11/09/21 paliperidone palmitate 234 mg/1.5 234 mg (1.5 mL) IM QMONTH #1.5 mL 11/10/21 mL intramuscular syringe (Invega Sustenna) Mental Status Exam Mental Status Exam Patient Appearance: Appropriate Patient Orientation: Person, Place, Time and Situation Level of Consciousness: Alert Patient Behavior: Appropriate, Talkative and Good Eye Contact Mood Description: Constricted Affect Description: Constricted Patient Cognition Impaired: No Ability to Follow Directions: Good Speech Pattern: Spontaneous Speech Memory Description: Intact Hallucinations: None Delusions: Not Present Thought Process: Intact and Goal Oriented Thought Content: positive for Intact, positive for Goal Oriented, positive for Suicidal Ideation (denies) and positive for Homicidal Ideation (denies) Depressive Symptoms: Thoughts of /Suicide (denies) Judgement: Fair Data Data Completed and Pending Completed studies during hospitalization [Text1]: 11/10/21 11/10/21 11/10/21 08:05 08:05 08:05 WBC 6.7 RBC 5.21 Hgb 15.7 Hct 47.3 MCV 90.8 MCH 30.1 MCHC 33.2 RDW 13.7 Plt Count 196 MPV 11.5 Immature Gran % (Auto) 0.7 H Neut % (Auto) 54.5 Lymph % (Auto) 27.8 [place] % (Auto) 14.9 H Eos % (Auto) 1.8 Baso % (Auto) 0.3 Lymph # (Auto) 1.9 [place] # (Auto) 1.0 Eos # (Auto) 0.1 Baso # (Auto) 0.0 Abs Immat Gran (auto) 0.05 H Absolute Neuts (auto) 3.7 Absolute Nucleated RBC 0.000 Nucleated RBC % (auto) 0.0 Sodium 139 Potassium 4.6 Chloride 103 Carbon Dioxide 28 Anion Gap 13 BUN 16 D Creatinine 1.04 Estim Creat Clear Calc 119.0 Estimated GFR > 60 Random Glucose 85 Estimat Average Glucose Hemoglobin A1c % Calcium 9.3 Total Bilirubin 0.4 AST 14 ALT 18 Alkaline Phosphatase 57 Total Protein 7.4 Albumin 4.2 Triglycerides 79 Cholesterol 113 LDL Cholesterol, Calc 74 HDL Cholesterol 24 TSH 3.05 Valproic Acid 76.2 11/10/21 11/10/21 08:05 08:05 WBC RBC Hgb Hct MCV MCH MCHC RDW Plt Count MPV Immature Gran % (Auto) Neut % (Auto) Lymph % (Auto) [place] % (Auto) Eos % (Auto) Baso % (Auto) Lymph # (Auto) [place] # (Auto) Eos # (Auto) Baso # (Auto) Abs Immat Gran (auto) Absolute Neuts (auto) Absolute Nucleated RBC Nucleated RBC % (auto) Sodium Potassium Chloride Carbon Dioxide Anion Gap BUN Creatinine Cancelled Estim Creat Clear Calc Cancelled Estimated GFR Cancelled Random Glucose Estimat Average Glucose 103 Hemoglobin A1c % 5.2 Calcium Total Bilirubin AST ALT Alkaline Phosphatase Total Protein Albumin Triglycerides Cholesterol LDL Cholesterol, Calc HDL Cholesterol TSH Valproic Acid DS: Summary Hospital Course Hospital Course: Admission to adult psychiatry for exacerbation of bipolar disorder with psychosis. Annalise Harley initiated as pt requested a long acting injectable medication for improved symptom mgt, noting the many losses he had experienced from exacerbation of his illness. Wellbutrin, Klonopin were initiated, along with Metformin for assistance with appetite and weight mgt. Valporate and Benztropine were increased. Haldol was used as a prn during initiation of Invega for breakthrough sx mgt. Geodon was stopped. Strattera was given on discharge for pt to work with as when he begins course work he experiences inattentive sx. He will decide if Wellbutrin is more effective for this symptom before trialing Strattera. Mother, a pharmacist, will assist him in this process. Pt plans to go to parents home in [place] upon discharge and return to the area for school. [facility] services were arranged, along with [facility] as needed for injection. Pt's mother will keep in contact with [facility] as needed prior to pt having his out patient alliances solidify. Time spent discussing smoking cessation with patient: 3 to 10 minutes Status at Discharge Functional status at discharge: independent ambulation Overall status at discharge: patient is progressing back to baseline Time Spent with Patient Time attestation: Total time spent providing and/or coordinating discharge services: 35 Time spent: Greater than 30 minutes Discharge Plan Discharge Patient Disposition: Home, Self-Care Discharge Diagnosis: Bipolar disorder with psychosis Referrals: Department of Mental Health [Other] - 11/13/21 10:00 am (Patient referral to Department of Mental Health Services Patient can follow-up with [facility] regarding referral application for services after discharge from [facility]. per instructions from [facility] Patient should follow-up with Dirk Bajwa plugger man at [facility] ) Meron Welch [Other] - Tomorrow (Patient instructed to call and schedule follow-up discharge appointment with psychiatric provider) Aneudy Alvarez [Other] - 11/14/21 10:00 am (Patient follow-up appointment with outpatient therapist Appointment in office in [place], [place].) DR. VILMA ELLER [Other] - 11/16/21 10:30 am [facility] [Other] - 1 Week (If you are interested in a visiting RN when you return to [place] your Md will have to make a referral for you. [facility]. ) [facility] (Partial Hospitalization Program) [Other] - 11/13/21 10:00 am (Patient should follow-up with PHP program regarding scheduled intake for program following discharge from [facility].) Discharge Medications: New metformin 500 mg Tablet 500 mg PO BIDWM Qty: 60 0RF divalproex 250 mg Tablet,Delayed Release (Dr/Ec) 750 mg PO BID Qty: 180 0RF benztropine 1 mg Tablet 1 mg PO BID PRN (Reason: Extrapyramidal Effects) Qty: 60 0RF bupropion HCl 150 mg Tablet Extended Release 24 Hr 150 mg PO DAILY Qty: 30 0RF clonazepam [Klonopin] 0.5 mg tablet 0.25 mg PO BID Qty: 30 0RF haloperidol 5 mg tablet 2.5 mg PO BID PRN (Reason: agitation) Qty: 30 0RF Invega Sustenna 234 mg/1.5 mL syringe 234 mg IM QMONTH Qty: 1.5 0RF atomoxetine [Strattera] 25 mg capsule 25 mg PO DAILY Qty: 30 0RF Continued albuterol sulfate 0.63 mg/3 mL Solution For Nebulization 0.63 mg INHALATION Q4-6H PRN (Reason: sob) Discontinued ziprasidone HCl [Geodon] 20 mg Capsule PO BID benztropine 0.5 mg Tablet 0.5 mg PO BEDTIME divalproex 500 mg tablet,delayed release (DR/EC) 1 tab PO BEDTIME Discharge Orders: Discharge Order (Routine); Ordered 11/10/21 Ordered By: Kristal Fields Diet: Advance to usual diet Activity on Discharge: As tolerated Stand Alone Forms: Patient Portal Discharge page, Community Support Care Plan Goals: Mood stabilization Health Concerns: Bipolar Disorder with psychosis Plan of Treatment: Attend follow up appointments Take medications as directed Invega Sustenna Injection is due to be given on 12/05/21. Practice coping skills Call/Return as needed Assessment: Pt will go to family home in [place] denies SI, plan or intent no psychotic sx present at time of discharge pt looking forward to a return to college to finish his degree in biology Discharge Date/Time: 11/10/21 19:05
[2021-11-10] MEDS: HaloperidoL 5 MG TABLET 2.5 MG PO (18:35)
== END 2021-11-10 19:05 | disposition home or self-care (01) | DRG 885 ==
PROVIDERS: Admitting Provider Psychiatry & Neurology Psychiatry; Visit Provider Clinical Nurse Specialist Psychiatric/Mental Health, Adult
DX: F31.9 Bipolar disorder, unspecified (principal); R45.851 Suicidal ideations; Z79.899 Other long term (current) drug therapy
CPT/HCPCS: 36415; 80053; 80061; 80164; 82565; 83036; 84443; 85025; 93005; J2426